=== PATIENT | male | born 1970 | race Caucasian/White ===

== ENCOUNTER 2017-10-15 18:14 | Emergency (ER) | payer MEDICARE, SELFPAY ==
[2017-10-15 18:15] VITALS: BP 108/83; PULSE 186; RESP 20; TEMP 36.9; O2SAT 99; BMI 34.4
--- NOTE | 2017-10-15 18:22 | EKG12_ITS ---
Test Reason : CP Blood Pressure : / mmHG Vent. Rate : 103 BPM Atrial Rate : 103 BPM P-R Int : 164 ms QRS Dur : 096 ms QT Int : 358 ms P-R-T Axes : 069 047 043 degrees QTc Int : 468 ms Sinus tachycardia Otherwise normal ECG Confirmed by NIKHIL HANKINS, KATEILN ([id number]), editor producer JOSEY NGUYEN ([id number]) on 10/19/2017 1:52:03 PM Referred By: AXEL Confirmed By:KATELIN TEJEDA MD
--- NOTE | 2017-10-15 18:23 | CT_ITS ---
STUDY: CT BRAIN WITHOUT CONTRAST REASON FOR EXAM: Male, 47 years old. Pain. RADIATION DOSAGE (If Supplied By Facility): CTDIvol = ( 44.99 ) mGy, DLP = ( 779.24 ) mGycm TECHNIQUE: Transaxial CT imaging of the brain was performed without administration of intravenous contrast material. Individualized dose optimization techniques were used for this CT. COMPARISON: MRI dated 01/04/2014 FINDINGS: There is no acute bleed or infarct. There are normal white matter tracts. The ventricles are normal in configuration. There is no hydrocephalus. There is mucosal hypertrophy in the left maxillary sinus. The visualized paranasal sinuses are otherwise clear. The mastoid air cells are well aerated. There is no skull fracture. CT/Brain/Head without Contrast IMPRESSION: No acute intracranial abnormality. Left maxillary sinusitis. Electronically Signed: Anthony Palomo, at 19:19 EDT Tel , Service support ,
[2017-10-15] MEDS: Adenosine 6 MG/2 ML Syringe 12 MG IV (18:26)
[2017-10-15] MEDS: 0.9% Normal Saline 1,000 ML 1000 ML IV (18:26)
[2017-10-15] MEDS: Aspirin 81 MG TAB.CHEW 324 MG PO (18:28)
--- NOTE | 2017-10-15 18:29 | RAD_ITS ---
STUDY: X-RAY CHEST REASON FOR EXAM: Male, 47 years old. Chest pain TECHNIQUE: Frontal view of the chest COMPARISON: 06/27/2014 FINDINGS: The lungs are clear. There are no pleural effusions. There is no pneumothorax. The heart is normal in size. The visualized osseous structures are within normal limits. RAD/Chest 1 View (Portable) IMPRESSION: No acute thoracic pathology. Electronically Signed: Anthony Palomo, at 19:10 EDT Tel , Service support ,
--- NOTE | 2017-10-15 18:29 | EKG12_ITS ---
Test Reason : SVT Blood Pressure : / mmHG Vent. Rate : 185 BPM Atrial Rate : 227 BPM P-R Int : 000 ms QRS Dur : 088 ms QT Int : 254 ms P-R-T Axes : 000 046 003 degrees QTc Int : 445 ms Supraventricular tachycardia Nonspecific ST abnormality Abnormal ECG Confirmed by NIKHIL HANKINS, KATELIN ([id number]), food editor JOSEY NGUYEN ([id number]) on 10/19/2017 1:53:20 PM Referred By: LAURA/AXEL Confirmed By:KATELIN TEJEDA MD
[2017-10-15 18:30] VITALS: O2SAT 99
--- NOTE | 2017-10-15 18:31 | ED.VISSUMM ---
- ER Visit Summary Date of Service: 10/15/17 Chief Complaint: Chest pain, palpitations History of Present Illness: The patient is a 47 M presenting with chest pain, palpitations. Patient states he was watching TV all day. He states he passed out while watching TV. He does not recall what happened but states he woke up and did not know where he was. He states he saw a little boy on his bed. Denies other hallucinations. He did not fall or have any injury. When he awoke he had chest pain and palpitations. He denies shortness of breath. Denies nausea or vomiting. Denies fever. Denies other complaints. Physical Examination: Heart rate 186, blood pressure 108/83, respiration 20, pulse ox 99% room air. This patient is afebrile. Alert no acute distress. HEENT exam is unremarkable. Neck is supple. Lungs are clear and equal bilaterally. Heart is regular and tachycardic Abdomen is soft nontender nondistended. Extremities are unremarkable. Skin is warm and dry. No focal neurologic deficit. Remainder of exam is unremarkable. Emergency Department Course and Treatment: EKG is SVT rate of 185. He was given adenosine 12 mg on arrival. He converted to sinus rhythm rate of 106. He was given aspirin. Chest x-ray shows no acute process. CBC shows a white count of 4.0, platelets 52. Chemistries unremarkable other than sodium 133, CO2 20, glucose 116. Troponin is negative. Tox positive for THC. Alcohol negative. TSH is 0.87. CT head shows no acute process. Patient is resting comfortably and feels improved in the emergency department. Recommend admission for further chest pain evaluation. Family also states patient has not had alcohol in the past 5 days. He has a history of alcohol withdrawal and DTs. Patient does not want to stay in the hospital. He is advised risks of DE, alcohol withdrawal, and . He understands these risks and signed out AGAINST MEDICAL ADVICE. He is advised to follow-up with Dr. Abbott personal care worker for no doc. Advised to return to the ED for any worsening complaints. Disposition: Left AGAINST MEDICAL ADVICE Impression: Chest pain, SVT, left AGAINST MEDICAL ADVICE This note was generated with [employer] dictation software. It may contain incorrect words, spelling, and punctuation that were not noted in review of the chart prior to signing ED Disposition - Plan for ED Patient: Chief Complaint: Chest Pain Referrals: Marisela West PA-C [Primary Care Provider] -
[2017-10-15 18:33] LABS: Absolute Lymphocyte Count 0.82 X10^3/ul (0.83-4.51); Absolute Neutrophil Count 2.9 X10^3/uL (2.0-7.7); Basophil# 0.01 X10^3/uL; Basophil% 0.2 % (0-1); Eosinophil# 0.05 X10^3/uL; Eosinophils% 1.2 % (0-5); Hematocrit 39.8 % (40-54); Hemoglobin 13.7 g/dl (13.0-16.5); Lymphocyte # 0.82 X10^3/ul (4.0); Lymphocyte % 20.3 % (19-41); Mean Corp Hgb Conc 34.4 g/gl (32-36); Mean Corpuscular Hgb 30.4 pg (27.0-32.0); Mean Corpuscular Volume 88.2 fL (80-94); Mean Platelet Vol. 11.4 fl (6.2-12.0); Monocyte# 0.23 X10^3/uL; Monocyte% 5.7 % (0-10); Neutrophil # 2.91 X10^3/uL (2.7-7.7); Neutrophil % 72.4 % (47-70); Platelet Count 52 K/mm3 (150-450); RBC Distribution Width CV 15.3 % (11.6-14.6); RBC Distribution Width SD 48.7 fl (35.1-43.9); Red Blood Count 4.51 M/mm3 (4.6-6.2)
[2017-10-15 18:34] LABS: POSITIVE COUNT NO; POSITIVE DIFFERENTIAL NO; POSITIVE MORPHOLOGY NO
--- NOTE | 2017-10-15 18:36 | ED.DCSUM_ITS ---
- ER Visit Summary Date of Service: 10/15/17 Chief Complaint: Chest pain, palpitations History of Present Illness: The patient is a 47 M presenting with chest pain, palpitations. Patient states he was watching TV all day. He states he passed out while watching TV. He does not recall what happened but states he woke up and did not know where he was. He states he saw a little boy on his bed. Denies other hallucinations. He did not fall or have any injury. When he awoke he had chest pain and palpitations. He denies shortness of breath. Denies nausea or vomiting. Denies fever. Denies other complaints. Physical Examination: Heart rate 186, blood pressure 108/83, respiration 20, pulse ox 99% room air. This patient is afebrile. Alert no acute distress. HEENT exam is unremarkable. Neck is supple. Lungs are clear and equal bilaterally. Heart is regular and tachycardic Abdomen is soft nontender nondistended. Extremities are unremarkable. Skin is warm and dry. No focal neurologic deficit. Remainder of exam is unremarkable. Emergency Department Course and Treatment: EKG is SVT rate of 185. He was given adenosine 12 mg on arrival. He converted to sinus rhythm rate of 106. He was given aspirin. Chest x-ray shows no acute process. CBC shows a white count of 4.0, platelets 52. Chemistries unremarkable other than sodium 133, CO2 20, glucose 116. Troponin is negative. Tox positive for THC. Alcohol negative. TSH is 0.87. CT head shows no acute process. Patient is resting comfortably and feels improved in the emergency department. Recommend admission for further chest pain evaluation. Family also states patient has not had alcohol in the past 5 days. He has a history of alcohol withdrawal and DTs. Patient does not want to stay in the hospital. He is advised risks of PA, alcohol withdrawal, and . He understands these risks and signed out AGAINST MEDICAL ADVICE. He is advised to follow-up with Dr. Abbott correspondence representative for no doc. Advised to return to the ED for any worsening complaints. Disposition: Left AGAINST MEDICAL ADVICE Impression: Chest pain, SVT, left AGAINST MEDICAL ADVICE This note was generated with [employer] dictation software. It may contain incorrect words, spelling, and punctuation that were not noted in review of the chart prior to signing ED Disposition - Plan for ED Patient: Chief Complaint: Chest Pain Referrals: Marisela West PA-C [Primary Care Provider] -
--- NOTE | 2017-10-15 18:37 | ED.RN ---
PT HAS NOT HAD ETOH FOR 5 DAYS AND REPORTED HAVING A BEER TODAY PER [facility], PT HAVING TREMORS AND VISUAL & AUDITORY HALLUCINATIONS AT THIS TIME.
--- NOTE | 2017-10-15 18:43 | ED.RN ---
PT REPORTED TAKING SOME PREDNISONE YESTERDAY I THINK 130MGS THEN PT STATED MAYBE 30MGS
[2017-10-15 19:11] LABS: Anion Gap 9 (5-15); BUN 7 mg/dL (7-18); BUN/Creat Ratio 9.7 RATIO (10-20); Calcium,Total 8.7 mg/dL (8.5-10.1); Chloride 104 mmol/L (98-107); Creatinine, Serum 0.72 mg/dL (0.70-1.30); EST Glomerular Filtration Rate 123 mL/min (>60); Est Glom Filt Rate - Afr Amer 148 mL/min (>60); Estimated Creatinine Clearance 128.14 ml/min; Glucose 116 mg/dL (74-106); Potassium 3.9 mmol/L (3.5-5.1); Sodium Level 133 mmol/L (136-145); Thyroid Stim Hormone (TSH) 0.87 uIU/mL (0.358-3.74)
[2017-10-15 19:22] VITALS: BP 120/74; PULSE 110; RESP 25; O2SAT 99
[2017-10-15 19:44] LABS: Amphetamine Urine VISTA NEGATIVE (<1000 ng/mL); Barbiturate Urine VISTA NEGATIVE (< 200 ng/mL); Benzodiazepine Urine VISTA NEGATIVE (< 200 ng/mL); Cocaine Urine VISTA NEGATIVE (< 300 ng/mL); Ecstacy Urine VISTA NEGATIVE (< 500 ng/mL); Methadone Urine VISTA NEGATIVE (< 300 ng/mL); PCP Urine VISTA NEGATIVE (< 25 ng/mL); THC Urine VISTA POSITIVE (< 50 ng/mL); Vista UDS pH Range 6
--- NOTE | 2017-10-15 20:08 | ED.DEP ---
ED Disposition - Plan for ED Patient: Chief Complaint: Chest Pain Instructions: ED Tachycardia Pat PSVT Referrals: Marisela West PA-C [Primary Care Provider] - Efraín Abbott MD [STAFF PHYSICIAN] -
[2017-10-15 20:12] VITALS: BP 116/74; PULSE 112; RESP 18; O2SAT 98
[2017-10-15 20:35] VITALS: BP 115/75; PULSE 104; RESP 20; O2SAT 98
--- NOTE | 2017-10-15 20:36 | ED.RN ---
PT IS LEAVING AMA. DISCHARGE INSTRUCTIONS GIVEN, AND AMA FORM SINGED BY THE PATIENT AND A COPY GIVEN.
== END 2017-10-15 20:38 | disposition home or self-care (01) ==
PROVIDERS: Emergency Provider Emergency Medicine; Family Provider Family Medicine; PCP Family Medicine
DX: I47.1 Supraventricular tachycardia (principal); R07.9 Chest pain, unspecified; J44.9 Chronic obstructive pulmonary disease, unspecified; M06.9 Rheumatoid arthritis, unspecified; Z72.0 Tobacco use; Z79.51 Long term (current) use of inhaled steroids
CPT/HCPCS: 36415; 70450; 71045; 80048; 80307; 80320; 84443; 84484; 85025; 93005; 96361; 96374; 99285; J7030; A4216; G0480; J0153

== ENCOUNTER → 2017-11-03 12:00 | Outpatient (CLI) | payer MEDICARE, SELFPAY ==
[2017-11-03 14:50] LABS: Anion Gap 4 (5-15); BUN 3 mg/dL (7-18); BUN/Creat Ratio 5.2 RATIO (10-20); Calcium,Total 8.6 mg/dL (8.5-10.1); Chloride 105 mmol/L (98-107); Cholesterol 125 mg/dL (200); Creatinine, Serum 0.58 mg/dL (0.70-1.30); EST Glomerular Filtration Rate 159 mL/min (>60); Est Glom Filt Rate - Afr Amer 193 mL/min (>60); Glucose 88 mg/dL (74-106); High Density Lipoprotein 30 mg/dL; Potassium 4.1 mmol/L (3.5-5.1); Sodium Level 134 mmol/L (136-145); Triglycerides 85 mg/dL; Very Low Density Lipoprotein 17 mg/dL (5-40)
== END ==
PROVIDERS: Visit Provider Family Medicine
DX: R07.9 Chest pain, unspecified (principal)
CPT/HCPCS: 36415; 80048; 80061

== ENCOUNTER 2019-12-24 23:21 | Inpatient (IN) | payer MEDICARE, SELFPAY ==
[2019-12-24 23:22] VITALS: BP 114/67; PULSE 180; RESP 28; TEMP 36.8; O2SAT 97; BMI 34.4
[2019-12-24 23:27] VITALS: BP 104/70; PULSE 103; RESP 29; TEMP 36.8; O2SAT 98
--- NOTE | 2019-12-24 23:32 | RAD_ITS ---
STUDY: X-RAY CHEST REASON FOR EXAM: Male, 49 years old. c/o sob and cellulitis to both legs TECHNIQUE: AP portable COMPARISON: 10/15/2017 FINDINGS: The lungs demonstrate vascular congestion with mild interstitial prominence.. There is no demonstrated pleural abnormality. There is mild cardiac enlargement. Normal mediastinum and santi. Normal visualized pulmonary arteries. Normal visualized aortic arch and descending thoracic aorta. Normal visualized thoracic spine. Normal visualized ribs, clavicles, and shoulders. There is no demonstrated abnormality of the visualized soft tissue structures of the upper abdomen. RAD/Chest 1 View (Portable) IMPRESSION: Stable cardiac enlargement with mild vascular congestion and interstitial prominence likely due to underlying edema with possible small pleural effusions. No focal lung consolidative changes. Electronically Signed: Norman Britton, at 0:43 EDT Tel , Service support ,
--- NOTE | 2019-12-24 23:32 | EKG12_ITS ---
Test Reason : DYSRHYTHMIA Blood Pressure : / mmHG Vent. Rate : 182 BPM Atrial Rate : 187 BPM P-R Int : 000 ms QRS Dur : 092 ms QT Int : 250 ms P-R-T Axes : 000 015 064 degrees QTc Int : 435 ms Supraventricular tachycardia Nonspecific ST abnormality Abnormal ECG Confirmed by NIKHIL HANKINS, KATELIN ([id number]), script editor DIVYA LOMAX ([id number]) on 12/26/2019 1:15:41 PM Referred By: DANIELLE Confirmed By:KATELIN TEJEDA MD
--- NOTE | 2019-12-24 23:34 | ED.VIS.GEN ---
History of Present Illness Chief Complaint: Cellulitis Informant: Patient Onset: Weeks Context: Gradual Onset Timing: Continuous Current Severity: Moderate Maximum Severity: Severe Narrative: The patient is a 49-year-old male with medical history significant for alcohol abuse, prior SVT, diabetes who is not on medication presents to the emergency department with multiple complaints. Patient states that he does drink daily. He states over the past 2 weeks, he has had increasing edema in his lower extremities. He states is difficult for him to get around. He states that today, the areas on his posterior heels have both broken down and begun to drain. He denies any fevers or chills. He denies any chest pain. Patient states he does not follow with a primary care. He is on no medications for his multiple comorbidities. The patient was seen here about 2 years ago and was found to be in SVT. He was converted with adenosine, but signed out AGAINST MEDICAL ADVICE. He states he does continue to drink. He was worried that his legs were infected. He does ambulate with a cane given his significant lower extremity edema. He states his legs have been swollen for 15 years. Prior similar symptoms: Yes Recent Illness/Hospitalization: No Past Medical History - Allergies and Home Meds Allergies/Adverse Reactions: Allergies shellfish derived Allergy (Verified 12/24/19 23:27) Anaphylaxis venom-honey bee [bee venom (honey bee)] Allergy (Verified 12/24/19 23:27) Swelling codeine Adverse Reaction (Verified 12/24/19 23:27) Nausea Primary Care Physician: Care Physician,No Primary [Primary Care Provider] - Prior records reviewed: Yes Past Medical History: - - Diabetes, alcohol abuse and dependence, SVT Surgical History: noncontributory Smoking Status: Current every day smoker Review of Systems General: Denies: Chills, Fever, Sweats Eyes: Denies: Visual changes - bilaterally, Diplopia ENT: Denies: Rhinorrhea, Sore throat Cardiovascular: Reports: Heart racing. Denies: Chest pain, Palpitations Respiratory: Reports: Dyspnea, Dyspnea on exertion, Orthopnea. Denies: Cough Gastrointestinal: Denies: Abdominal pain, Nausea, Vomiting, Diarrhea, Melena, Hematochezia Genitourinary: Denies: Dysuria, Hematuria, Frequency Musculoskeletal: Reports: Myalgias, Swelling. Denies: Back pain, Extremity Pain Skin: Denies: Rash, Wounds Neurological: Denies: Headache, Weakness, Numbness Physical Exam Vital Signs/Narrative: Vital Signs Temp Pulse Resp BP Pulse Ox 12/24/19 23:22 98.2 F 180 H 28 H 114/67 97 Inital Vital Signs reviewed: Yes General: Unkempt, No Acute Distress Head: Normocephalic, Atraumatic Eyes: Perrl, EOMI ENT: Moist mucous membranes, No rhinorrhea, TM's clear Neck: Supple, Nontender Cardiovascular: Regular rhythm, Tachycardia Respiratory: No distress, Rales, Decreased Air Movement Abdomen: Soft, Nontender Back: Nontender Extremities: Edema Skin: Normal color Neurological: Alert, Oriented x3, Cranial nerves II-XII grossly intact Diagnostic/Tx/Re-eval - Rhythm Strip Rhythm Strip: svt Rate: 180 Ectopy: None - EKG Initial EKG Interpretation: SVT, Non-Specific ST Changes Prior: Unchanged Follow-up EKG Interpretation: Sinus Rhythm, No Acute Injury Pattern Prior: Unchanged - Medical Decision Making The patient presents with multiple complaints. He has 4+ edema of his lower extremities. He has anasarca. He has abdominal fluid wave. He was tachycardic on arrival, but not hypoxic. EKG was obtained which showed SVT which the patient has a history of. The patient underwent chemical cardioversion with 12 mg of adenosine. Repeat EKG shows sinus tachycardia at a rate of 100. There is no acute ischemic change. Chest x-ray does show congestion with evidence of volume overload. Patient is pancytopenic, which I feel is likely a result of his chronic alcohol abuse and rather poor underlying health. He has not had fever. The wounds on his legs do seem consistent with chronic venous stasis and skin breakdown. There is no evidence of overwhelming infection. Patient does have a lactic acid of 4.3. I do not feel this represents septic shock. The patient has had no fever. I do feel that this is likely secondary to his liver disease. He is already significantly volume overloaded, and I do feel that giving him high-volume fluids would be detrimental to his care. I do feel the patient needs diuresed. His renal function is unremarkable. His liver functions do show an elevated bilirubin without evidence of acute liver failure. Cardiac enzymes are normal. Patient has normal mentation. Again, my suspicion for infectious process is very low. I do feel that his symptoms are secondary to significant volume overload from CHF and likely underlying liver disease. I do feel the patient is in require continued diuresis, and echo, and further evaluation of his liver function. Patient was given 40 mg of Lasix IV. He was discussed with the hospitalist. Impression 1. Anasarca 2. Decompensated CHF 3. History of alcohol abuse and dependence 4. Alcoholic liver disease 5. SVT with chemical cardioversion 6. Lactic acidosis ED Disposition - Plan for ED Patient: Referrals: Care Physician,No Primary [Primary Care Provider] -
[2019-12-24] MEDS: Adenosine 6 MG/2 ML Syringe 12 MG IV (23:52)
[2019-12-24 23:53] LABS: Absolute Lymphocyte Count 0.36 X10^3/uL (0.83-4.51); Absolute Neutrophil Count 0.9 X10^3/uL (2.0-7.7); Eosinophil# 0.02 X10^3/uL; Eosinophils% 1.5 % (0-5); Hematocrit 34.3 % (40-54); Hemoglobin 10.7 g/dL (13.0-16.5); Lymphocyte # 0.36 X10^3/ul (4.0); Lymphocyte % 26.5 % (19-41); Mean Corp Hgb Conc 31.2 g/dL (32-36); Mean Corpuscular Hgb 26.5 pg (27.0-32.0); Mean Corpuscular Volume 84.9 fL (80-94); Mean Platelet Vol. 9.5 fl (6.2-12.0); Monocyte% 7.4 % (0-10); NRBC Flagged by Analyzer 0 % (0-5); Neutrophil # 0.87 X10^3/uL (2.7-7.7); Neutrophil % 63.9 % (47-70); POSITIVE COUNT YES; POSITIVE DIFFERENTIAL YES; POSITIVE MORPHOLOGY YES; Platelet Count 88 K/mm3 (150-450); RBC Distribution Width CV 22.9 % (11.6-14.6); Red Blood Count 4.04 M/mm3 (4.6-6.2)
--- NOTE | 2019-12-24 23:53 | EKG12_ITS ---
Test Reason : RHYTHM CONVERSION Blood Pressure : / mmHG Vent. Rate : 100 BPM Atrial Rate : 100 BPM P-R Int : 176 ms QRS Dur : 106 ms QT Int : 342 ms P-R-T Axes : 059 028 058 degrees QTc Int : 441 ms Sinus rhythm with Premature atrial complexes Possible Left atrial enlargement Borderline ECG Confirmed by NIKHIL HANKINS, KATELIN ([id number]), commercial production editor DIVYA LOMAX ([id number]) on 12/26/2019 1:15:58 PM Referred By: DANIELLE Confirmed By:KATELIN TEJEDA MD
[2019-12-24 23:56] LABS: Differential Indicated SCAN CRITERIA MET; White Blood Count 1.4 K/mm3 (4.4-11.0)
[2019-12-25] VITALS (16 sets, daily range): BP systolic 103–130; BP diastolic 49–72; PULSE 45–99; RESP 16–22; TEMP 36.6–37.1; O2SAT 92–99; BMI 35.2
[2019-12-25 00:03] LABS: International Normalized Ratio 1.5; Prothrombin Time (Protime)PT. 17.9 SECONDS (11.7-14.9)
[2019-12-25 00:14] LABS: Differential Comment SCANNED; Hypochromasia 1+; Platelet Estimate MOD DEC (ADEQ); Reactive Lymphocyte RARE
[2019-12-25 00:18] LABS: Lactic Acid 4.3 mmol/L (0.4-1.9)
[2019-12-25 00:19] LABS: BNP,B-Type NATRIURETIC PEPTIDE 877.3 pg/mL (0-100)
[2019-12-25 00:20] LABS: ALB/GLOB Ratio 0.3 RATIO (0.9-2.4); AST(SGOT) 74 U/L (15-37); Alanine Aminotransfer ALT/SGPT 36 U/L (16-61); Albumin, Serum 1.6 g/dL (3.2-5.0); Alkaline Phosphatase 195 U/L (45-117); Anion Gap 6 (5-15); BUN 5 mg/dL (7-18); BUN/Creat Ratio 7.3 RATIO (10-20); Calcium,Total 7.1 mg/dL (8.5-10.1); Chloride 105 mmol/L (98-107); Creatinine, Serum 0.68 mg/dL (0.70-1.30); EST Glomerular Filtration Rate 129 mL/min (>60); Est Glom Filt Rate - Afr Amer 157 mL/min (>60); Globulin 5.2 g/dL (2.2-4.2); Glucose 198 mg/dL (74-106); Potassium 4.3 mmol/L (3.5-5.1); Protein, Total 6.8 g/dL (6.4-8.2); Sodium Level 132 mmol/L (136-145); Thyroid Stim Hormone (TSH) 4.06 uIU/mL (0.358-3.74)
[2019-12-25] MEDS: Furosemide 40 MG/4 ML Vial IV ×4 (00:31→22:28)
--- NOTE | 2019-12-25 00:45 | PCM.HP.STD ---
Problem List (1) CHF (congestive heart failure) Status: Acute (2) Alcohol abuse Status: Chronic (3) Lymphedema Status: Chronic (4) Diabetes Status: Chronic History of Present Illness Date of Admission: 12/25/19 Chief Complaint: shortness of breath The patient is a 49 year old male patient with a significant past medical history of chronic alcohol abuse, diabetes who does not take any medication or see a doctor presents to the emergency room with shortness of breath and increased swelling of his legs. Patient denies chest pain or nausea and/or vomiting and diarrhea. He states he last drank 7 beers yesterday but routinely drinks 15-20 beers daily and has previously experienced delirium tremens. Laboratory studies reveal a white blood cell count of 1.4, hemoglobin 10.7, hematocrit 34, platelets 88, sodium 132, potassium 4.3, chloride 105, bicarb 21, BUN 5, creatinine 0.68, glucose 198, calcium 7.1, total bilirubin 3.6, AST 74, ALT 36, lactate 4.3, INR 1.5, BNP 877, troponin negative, albumin 1.6, TSH 4.06, chest x-ray shows pulmonary edema pattern. The patient will be admitted to the progressive care unit and will manage his congestive heart failure with diuretics and observe for symptoms of alcohol withdrawal. Patient was agreeable to plan of care and states he will be compliant and stay in the hospital this time despite having left AGAINST MEDICAL ADVICE previously. Past Medical History Past Medical History (Chronic Problems): Chronic Problems Alcohol abuse (Chronic) Lymphedema (Chronic) Diabetes (Chronic) Allergies shellfish derived Allergy (Verified 12/24/19 23:27) Anaphylaxis venom-honey bee [bee venom (honey bee)] Allergy (Verified 12/24/19 23:27) Swelling codeine Adverse Reaction (Verified 12/24/19 23:27) Nausea Home Medications: Ambulatory Orders Medication Instructions Recorded Albuterol Inhaler [Ventolin Hfa] 1 - 2 puff INHALATION Q4H PRN PRN 04/23/14 Fluticasone/Salmeterol [Advair 1 puff INHALATION BID 04/23/14 250/50 Mcg Diskus] Surgical History: noncontributory Smoking Status: Current every day smoker - *Family History Maternal History Items: No pertinent history Review of Systems Constitutional: Denies: Chills, Fever, Weight Change HEENT: Denies: Head Aches, Sinus Congestion, Sinus Drainage Cardiovascular: Reports: Edema. Denies: Chest Pain, Palpitations Respiratory: Reports: Shortness of breath at rest. Denies: Cough, Sputum production Gastrointestinal: Denies: Abdominal Pain, Nausea, Vomiting Genitourinary: Denies: Dysuria Musculoskeletal: Denies: Joint Pain, Joint Tenderness Skin: Denies: Rash, Wounds Neurological: Denies: Numbness, Tingling, Focal weakness Psychiatric: Reports: Anxiety. Denies: Depression, Homicidal Ideations, Suicidal Ideations Hematologic/ Lymphatic: Denies: Easy Bruising, Easy Bleeding VTE Information - Inpt Only VTE Present on Admission: No VTE Mechan Device Prophylaxis: None VTE Pharm Prophylaxis ordered?: Yes Patient Problems: Active and Suspected Problems CHF (congestive heart failure) (Acute) - Physical Exam Vitals/I&O's: Vital Signs Temp Pulse Resp BP Pulse Ox 98.4 F 98 22 H 103/71 99 12/25/19 00:38 12/25/19 00:38 12/25/19 00:38 12/25/19 00:38 12/25/19 00:38 Oxygen Delivery Method Room Air Weight: 240 lb Body Mass Index (BMI) 34.4 General: Alert, Oriented x3, Cooperative HEENT: Atraumatic, Normocephalic Neck: Supple Lungs: No rhonchi, No wheeze, Diminished, Rales Cardiovascular: Normal S1, Normal S2, No murmurs, Tachycardic Abdomen: Bowel Sounds Present, Soft, Non Tender, Obese Extremities: Clubbing, Diminished Peripheral Pulses, Edema, Tenderness Skin: No rashes, No breakdown Musculoskeletal: No Tenderness to Palpation of Joints or Extremities Neurological: Neuro grossly intact Psych/Mental Status: Normal Affect, Appropriate Laboratory Results 12/24/19 23:43: Ethyl Alcohol 4.0 12/24/19 23:45: WBC 1.4 L*, RBC 4.04 L, Hgb 10.7 L, Hct 34.3 L, MCV 84.9, MCH 26.5 L, MCHC 31.2 L, RDW Std Deviation 68.0 H, RDW Coeff of Chacha 22.9 H, Plt Count 88 L, MPV 9.5, Immature Gran % (Auto) 0.700, Neut % (Auto) 63.9, Lymph % (Auto) 26.5, Mcdowell % (Auto) 7.4, Eos % (Auto) 1.5, Baso % (Auto) 0.0, Absolute Neuts (auto) 0.9 L, Absolute Lymphs (auto) 0.36 L, Nucleated RBC % 0, Differential Comment SCANNED, Diff Path Review May foll, Reactive Lymphocytes RARE, Platelet Estimate MOD DEC, Hypochromasia 1+ 12/24/19 23:45: PT 17.9 H, INR 1.5 12/24/19 23:45: Sodium 132 L, Potassium 4.3, Chloride 105, Carbon Dioxide 21.0, Anion Gap 6, BUN 5 L, Creatinine 0.68 L, Estim Creat Clear Calc 132.70, Est GFR (MDRD) Af Amer 157, Est GFR (MDRD) Non-Af 129, BUN/Creatinine Ratio 7.3 L, Glucose 198 H, Calcium 7.1 L, Magnesium 2.0, Total Bilirubin 3.60 H, AST 74 H, ALT 36, Alkaline Phosphatase 195 H, Troponin I < 0.015, Total Protein 6.8, Albumin 1.6 L, Globulin 5.2 H, Albumin/Globulin Ratio 0.3 L, TSH 4.06 H 12/24/19 23:45: Lactic Acid 4.3 H* 12/24/19 23:45: B-Natriuretic Peptide 877.3 H Assessment/Plan All Active Problems CHF (congestive heart failure) (Acute) Chronic Problems Alcohol abuse (Chronic) Lymphedema (Chronic) Diabetes (Chronic) Plan 1. Acute congestive heart failure?admit patient to progressive care unit, order echocardiogram, diurese aggressively with Lasix, oxygen per protocol 2. Diabetes?initiate low-dose sliding scale insulin before meals and at bedtime 3. Alcohol abuse?will add alcohol withdrawal protocol 4. DVT prophylaxis?low molecular weight heparin Patient will need aggressive outpatient management with a primary care physician to successfully improve long-term. Would need medication such as metformin, ESTRELLA inhibitor, statin medication and aggressive alcohol cessation management/counseling. Sadly the patient does not appear to be motivated for a great deal of change at this time. Inpatient E&M: 36633 Init Hosp L3
[2019-12-25 01:03] LABS: Bacteria 0 SEEN /hpf (None Seen); Mucous, Urine 0 SEEN /hpf (<or=2+); Red Blood Cells-Urine 0 SEEN /hpf (0-5); Squamous Epithelial Cells - UA 0 SEEN /hpf (0-5); White Blood Cells 0 SEEN /hpf (0-5)
[2019-12-25 01:04] LABS: Color, Urine Amber (Yellow); Glucose, Dipstick Normal (Normal); Ketone-Dipstick Negative (Negative); Leukocyte Esterase-Dipstick Negative /ul (Negative); Nitrite-Dipstick Negative (Negative); Occult Blood-Urine Negative /ul (Negative); Protein-Dipstick Negative (Negative); Urine Bilirubin Dipstick Negative (Negative); Urine Clarity Sl. Cloudy (Clear); Urine Urobilinogen 1 mg/dl (Normal)
[2019-12-25 01:56] LABS: Bedside Glucose 106 mg/dL (70-110)
[2019-12-25] MEDS: LORazepam 1 MG Tablet 2 MG PO ×2 (02:35→09:49)
[2019-12-25] MEDS: 0.9% Saline Lock 10 ML Syringe IV ×4 (02:35→22:28)
[2019-12-25 03:49] LABS: Reflex Lactate? Y
[2019-12-25 04:47] LABS: Lactic Acid 1.8 mmol/L (0.4-1.9)
[2019-12-25 04:50] LABS: Absolute Lymphocyte Count 0.43 X10^3/uL (0.83-4.51); Absolute Neutrophil Count 0.7 X10^3/uL (2.0-7.7); Eosinophil# 0.03 X10^3/uL; Eosinophils% 2.2 % (0-5); Hematocrit 28.4 % (40-54); Hemoglobin 9.1 g/dL (13.0-16.5); Lymphocyte # 0.43 X10^3/ul (4.0); Lymphocyte % 31.9 % (19-41); Mean Corpuscular Hgb 26.9 pg (27.0-32.0); Mean Platelet Vol. 9.6 fl (6.2-12.0); Monocyte# 0.14 X10^3/uL; Monocyte% 10.4 % (0-10); NRBC Flagged by Analyzer 0 % (0-5); Neutrophil # 0.74 X10^3/uL (2.7-7.7); Neutrophil % 54.8 % (47-70); POSITIVE COUNT YES; POSITIVE DIFFERENTIAL YES; POSITIVE MORPHOLOGY YES; Platelet Count 81 K/mm3 (150-450); RBC Distribution Width CV 22.6 % (11.6-14.6); RBC Distribution Width SD 67.5 fl (35.1-43.9); Red Blood Count 3.38 M/mm3 (4.6-6.2)
[2019-12-25 04:52] LABS: Differential Indicated SCAN CRITERIA MET; White Blood Count 1.4 K/mm3 (4.4-11.0)
[2019-12-25 05:04] LABS: Anion Gap 4 (5-15); BUN 6 mg/dL (7-18); BUN/Creat Ratio 12.3 RATIO (10-20); Calcium,Total 7.1 mg/dL (8.5-10.1); Chloride 104 mmol/L (98-107); Creatinine, Serum 0.49 mg/dL (0.70-1.30); EST Glomerular Filtration Rate 191 mL/min (>60); Est Glom Filt Rate - Afr Amer 231 mL/min (>60); Estimated Creatinine Clearance 184.16 ml/min; Glucose 123 mg/dL (74-106); Potassium 3.6 mmol/L (3.5-5.1); Sodium Level 133 mmol/L (136-145)
[2019-12-25 05:05] LABS: BNP,B-Type NATRIURETIC PEPTIDE 978.2 pg/mL (0-100)
[2019-12-25 05:19] LABS: Differential Comment SCANNED; Hypochromasia RARE; Platelet Estimate MOD DEC (ADEQ); Reactive Lymphocyte RARE
--- NOTE | 2019-12-25 05:55 | ECHOD_ITS ---
Reason For Study: CHF Procedure This was a 2D Doppler, Color Flow transthoracic echocardiogram. The study was technically difficult. Exam performed portable in patient room. Left Ventricle Normal LV size. Left ventricular systolic function is normal. The estimated ejection fraction is 60 %. No evidence for diastolic dysfunction. No regional wall motion abnormalities noted. Right Ventricle Normal RV size. Normal systolic function. Atria The left atrium is mildly enlarged. Normal right atrium. No doppler evidence for ASD. Mitral Valve There is no mitral annular calcification. Mild diffuse mitral valve thickening. Mild (1+) mitral valve insufficiency. Tricuspid Valve Normal tricuspid valve. Trivial tricuspid valve insufficiency. Right ventricular systolic pressure estimated to be 29 mmHg. Aortic Valve Trisinus/trileaflet aortic valve. Normal aortic valve. Trivial aortic valve insufficiency. Pulmonic Valve The pulmonic valve is not well visualized. Great Vessels Normal sized aortic root. Pericardium/Pleural No pericardial effusion. MMode/2D Measurements & Calculations LVIDd: 5.1 cm IVSd: 0.82 cm Ao root diam: 3.6 cm LVIDs: 3.8 cm LVPWd: 0.84 cm RVDd: 4.7 cm FS: 26.0 % LAV(MOD-bp): 102.9 ml LVAd ap4: 44.3 cm2 SV(MOD-sp4): 111.3 ml LAV(MOD-bp) Indexed: 45.2 ml/m2 EDV(MOD-sp4): 176.1 ml LAV(MOD-sp2): 97.8 ml EDV(sp4-el): 181.5 ml LAV(MOD-sp4): 99.8 ml LVAs ap4: 23.5 cm2 ESV(MOD-sp4): 64.9 ml ESV(sp4-el): 62.8 ml EF(MOD-sp4): 63.2 % EF(sp4-el): 65.4 % SV(sp4-el): 118.7 ml LA A4 area: 30.1 cm2 LA dimension(2D): 4.5 cm RA A4 area: 24.1 cm2 Time Measurements MV dec time: 0.34 sec Doppler Measurements & Calculations MV E max bairon: 131.1 cm/sec Lat Peak E' Bairon: 14.2 cm/sec Med Peak E' Bairon: 10.7 cm/sec MV A max bairon: 99.0 cm/sec E/E' lat: 9.2 E/E' med: 12.3 MV E/A: 1.3 Ao V2 max: 193.1 cm/sec LV V1 max: 164.5 cm/sec PA V2 max: 171.7 cm/sec Ao max P.9 mmHg LV V1 max P.8 mmHg TR max bairon: 256.5 cm/sec TR max P.3 mmHg Interpretation Summary The study was technically difficult. Left ventricular systolic function is normal. The estimated ejection fraction is 60 %. The left atrium is mildly enlarged. Mild diffuse mitral valve thickening. Mild (1+) mitral valve insufficiency. Trivial tricuspid valve insufficiency. Trivial aortic valve insufficiency. Right ventricular systolic pressure estimated to be 29 mmHg. No evidence for diastolic dysfunction. Ordering Physician: Efraín Abbott Referring Physician: EFRAÍN ABBOTT Performed By: Lyla Briones RDCS
[2019-12-25 06:55] LABS: Bedside Glucose 106 mg/dL (70-110)
[2019-12-25] MEDS: Folic Acid 1 MG Tablet PO (09:47)
[2019-12-25] MEDS: Enoxaparin 40 MG/0.4 ML Syringe SC (09:47)
[2019-12-25] MEDS: Thiamine Hydrochloride 100 MG Tablet PO (09:47)
--- NOTE | 2019-12-25 10:25 | NURSING ---
No open areas noted to bilateral lower legs. chronic lymphedema noted with hemosiderin staining. pt states he has not been able to shower for quite some time. pt had been bathed numerous times since admission and there is still an odor noted. has some black stained areas to feet. washed legs and feet again with soap and water. pat dry. applied kerlix and ESTRELLA wraps from the base of the toes to just below the knees. see skin photos of legs.
--- NOTE | 2019-12-25 11:25 | NURSING ---
Handoff completed with Daniela Farnsworth RN. Pt resting in bed, eyes closed. Appears to be in no distress. This RN will be taking over pt care at this time.
--- NOTE | 2019-12-25 11:26 | NURSING ---
skin photo: right lower leg
--- NOTE | 2019-12-25 11:27 | NURSING ---
skin photo: left lower leg
--- NOTE | 2019-12-25 11:28 | CASEMGMT ---
ARSENIO GONSALVES assessment: Face to Face with patient for initial transition planning/care coordination assessment. ARSENIO GONSALVES introduced self and role at [facility], pt voices understanding and consents to assessment at this time. Pt is sitting up in bed in no distress at this time but pt falls asleep when not verbally stimulated. Pt is A/Ox4 at this time and answers questions appropriately at this time. Pt looks jaundiced at this time. Care providers, pharmacy, and demographics verified at this time. Presentation: Pt concerned for infection in both feet Admitting dx: CHF exacerbation PCP: Pt states that he does not have a PCP but is willing to take a list of in-network providers at this time. Pt states that he has been doing his own wound care at home. Specialists: Pt states no current specialists. [facility] Benefit[facility] [employer] Living Will/HPOA: Pt states does not have LW/HPOA and declines AD info at this time. LNOK: Yara Cardenas, Living Arrangements: Pt states lives with on main level of home and states no concerns at home at this time. Pt states is independent with ADL's. Transportation: Pt states drives self and states no transportation concerns at this time. DME/HHC: Pt states has the following DME: walker and grab bars. Pt states no need for any further DME at this time. Pt states no hx of HHC or SNF in the past. Pt states no concerns with going home at time of discharge. Pt states is on disability. Pt states smokes 1-2packs/day and drinks about 15 beers daily. Pt declines need for any further resources for ETOH abuse at this time. Pt states no further concerns/needs at this time. CM to follow for any further discharge planning/needs. Advised pt to ask for CM if any further questions/concerns/needs arise, voices understanding. Pt Goal: Home Plan: [place] ARSENIO GONSALVES
--- NOTE | 2019-12-25 11:28 | NURSING ---
wound photo: right buttock
[2019-12-25 11:35] LABS: Bedside Glucose 101 mg/dL (70-110)
[2019-12-25 12:32] LABS: Pathologist Review Reviewed
[2019-12-25 12:32] LABS: Pathologist Review Reviewed
[2019-12-25 16:55] LABS: Bedside Glucose 92 mg/dL (70-110)
--- NOTE | 2019-12-25 17:05 | PCM.HOSP.N ---
Hospitalist Note He was seen and examined today, he appears somnolent and lethargic, I initially took him off of Ativan taper, I then put him on some programmed Ativan at the lower dose but he remained somnolent and lethargic so I made the decision to stop his programmed Ativan. Patient will be given Ativan as needed based on his CIWA scores. Patient's echocardiogram today showed a normal EF and no evidence of pulmonary hypertension. Patient's labs will be repeated tomorrow, I have decided to keep the patient on his present medication. Patient's ammonia level was checked this afternoon and it was 46-I do not think this is contributing to his lethargy.
[2019-12-25 22:09] LABS: Magnesium 1.9 mg/dL (1.6-2.6); Phosphorus 2.9 mg/dL (2.5-4.9)
[2019-12-25 23:25] LABS: Bedside Glucose 139 mg/dL (70-110)
[2019-12-26] VITALS (54 sets, daily range): BP systolic 80–138; BP diastolic 40–115; PULSE 56–175; RESP 18–34; TEMP 36.4–36.9; O2SAT 87–99
[2019-12-26] MEDS: 0.9% Saline Lock 10 ML Syringe IV ×14 (01:36→20:25)
[2019-12-26] MEDS: dilTIAZem 25 MG/5 ML Vial 20 MG IV BOLUS ×3 (01:37→20:26)
--- NOTE | 2019-12-26 01:42 | PCM.HOSP.N ---
Hospitalist Note Patient with onset asymptomatic tachycardia, rate 180s, ? appearance NSVT, administered cardizem 20 mg IV bolus x 1, repeat EKG with NSR rate 80s, occasional PVC. Last CIWA 3. Will continue to closely monitor and add additional regimen as needed.
--- NOTE | 2019-12-26 01:59 | EKG12_ITS ---
Test Reason : EKG CHANGE Blood Pressure : / mmHG Vent. Rate : 064 BPM Atrial Rate : 064 BPM P-R Int : 196 ms QRS Dur : 106 ms QT Int : 446 ms P-R-T Axes : 055 056 066 degrees QTc Int : 460 ms Sinus rhythm with Premature atrial complexes Otherwise normal ECG When compared with ECG of 26-DEC-2019 14:33, MANUAL COMPARISON REQUIRED, DATA IS UNCONFIRMED Confirmed by ISH HANKINS, CORY ([id number]), news copy editor DIVYA LOMAX ([id number]) on 12/28/2019 9:12:27 AM Referred By: VIRGILIO Confirmed By:THAI DENG MD
[2019-12-26] MEDS: dilTIAZem 25 MG/5 ML Vial 10 MG IV BOLUS ×2 (02:50→05:52)
[2019-12-26] MEDS: Adenosine 6 MG/2 ML Syringe IV ×2 (04:11→13:44)
[2019-12-26] MEDS: Adenosine 6 MG/2 ML Syringe 12 MG IV ×3 (04:24→16:31)
[2019-12-26] MEDS: Metoprolol Tartrate 5 MG/5 ML Vial 2.5 MG IV (04:32)
[2019-12-26] MEDS: Amiodarone 360 MG in Dextrose 5% Viaflo Bag 192.8 ML 33.3 MG CONT INF (05:25)
[2019-12-26 05:46] LABS: Absolute Neutrophil Count 0.7 X10^3/uL (2.0-7.7); Basophil# 0.01 X10^3/uL; Basophil% 0.7 % (0-1); Eosinophil# 0.04 X10^3/uL; Eosinophils% 2.6 % (0-5); Hemoglobin 9.6 g/dL (13.0-16.5); Lymphocyte % 39.7 % (19-41); Mean Corpuscular Volume 84.5 fL (80-94); Mean Platelet Vol. 10.2 fl (6.2-12.0); Monocyte% 13.2 % (0-10); NRBC Flagged by Analyzer 0 % (0-5); Neutrophil # 0.66 X10^3/uL (2.7-7.7); Neutrophil % 43.8 % (47-70); POSITIVE COUNT YES; POSITIVE DIFFERENTIAL YES; POSITIVE MORPHOLOGY YES; Platelet Count 85 K/mm3 (150-450); RBC Distribution Width CV 22.9 % (11.6-14.6); Red Blood Count 3.55 M/mm3 (4.6-6.2); White Blood Count 1.5 K/mm3 (4.4-11.0)
[2019-12-26 05:58] LABS: Differential Indicated SCAN CRITERIA MET
[2019-12-26 06:01] LABS: ALB/GLOB Ratio 0.3 RATIO (0.9-2.4); AST(SGOT) 52 U/L (15-37); Alanine Aminotransfer ALT/SGPT 28 U/L (16-61); Albumin, Serum 1.4 g/dL (3.2-5.0); Alkaline Phosphatase 146 U/L (45-117); Anion Gap 7 (5-15); BUN 9 mg/dL (7-18); BUN/Creat Ratio 17.3 RATIO (10-20); Calcium,Total 7.2 mg/dL (8.5-10.1); Chloride 101 mmol/L (98-107); Creatinine, Serum 0.52 mg/dL (0.70-1.30); EST Glomerular Filtration Rate 177 mL/min (>60); Est Glom Filt Rate - Afr Amer 214 mL/min (>60); Estimated Creatinine Clearance 173.53 ml/min; Globulin 4.7 g/dL (2.2-4.2); Glucose 151 mg/dL (74-106); Potassium 3.3 mmol/L (3.5-5.1); Protein, Total 6.1 g/dL (6.4-8.2); Sodium Level 134 mmol/L (136-145)
[2019-12-26 06:13] LABS: Differential Comment SCANNED; Hypochromasia 1+; Microcytosis RARE; Platelet Estimate MOD DEC (ADEQ)
[2019-12-26 07:05] LABS: Bedside Glucose 109 mg/dL (70-110)
[2019-12-26] MEDS: Thiamine Hydrochloride 100 MG Tablet PO (07:21)
[2019-12-26] MEDS: Folic Acid 1 MG Tablet PO (07:21)
--- NOTE | 2019-12-26 07:47 | CPS ---
pt placed on 2lpm for c/o S.O.B...nurse aware of change
--- NOTE | 2019-12-26 08:44 | CON.PCM_ITS ---
Problem List (1) SVT (supraventricular tachycardia) Status: Acute (2) Alcohol abuse Status: Chronic (3) Pancytopenia Status: Acute (4) Lymphedema Status: Chronic (5) COPD (chronic obstructive pulmonary disease) Status: Chronic (6) Arthritis Status: Chronic (7) Diabetes Status: Chronic Reason for Consult Date of Consultation: 12/26/19 History of Present Illness: The patient is a 49 year [id number]-oox white male with a past history of alcohol abuse, lymphedema, COPD, rheumatoid arthritis, and diabetes, who is referred for evaluation of SVT in the setting of pancytopenia. He states that in the past he presented to a hospital for concerns of an increased heart rate, was treated medically, was recommended for further inpatient evaluation and care, declined such evaluation care, signed out AMA, and has had no cardiovascular evaluation since that time. He presented to the hospital based upon concerns of chest discomfort and lower extremity edema. However, he states he does not recall having any chest discomfort. He states that he has felt short of breath and has noted his lower extremity edema with associated skin breakdown with associated sores , have worsened. He was evaluated and placed in the hospital with alcohol detoxification monitoring. During his hospital stay he has been found to have episodes of SVT responding to IV adenosine therapy. He is also been found to have an cytopenia and electrolyte abnormalities. He has been treated during his hospital stay from a cardiovascular standpoint based upon his recurrent SVT with an attempt of IV diltiazem and subsequently IV amiodarone. He is also been on IV diuretics for his lower extremity edema along with Brandyn wraps for his lower extremity edema. He has undergone further evaluation with cardiac enzyme levels which have been negative. He did have an ECG which demonstrated sinus rhythm with PACs with poor R wave progression as well as an ECG demonstrating findings compatible with SVT. He had a transthoracic echoc ardiogram performed which is noted below. At the present time he denies any chest discomfort. He states he has chronic shortness of breath and dyspnea related to his COPD. He denies any ongoing nausea, emesis, or diaphoresis. He states he has chronic lower extremity edema with sores that week. He notes that he follows with no physicians. He wants to move to [place] to improve his pulmonary process. [] Past Medical History Allergies/Adverse Reactions: Allergies shellfish derived Allergy (Verified 12/24/19 23:27) Anaphylaxis venom-honey bee [bee venom (honey bee)] Allergy (Verified 12/24/19 23:27) Swelling codeine Adverse Reaction (Verified 12/24/19 23:27) Nausea Home Medications: Ambulatory Orders Medication Instructions Recorded Albuterol Inhaler [Ventolin Hfa] 1 - 2 puff INHALATION Q4H PRN PRN 04/23/14 Fluticasone/Salmeterol [Advair 1 puff INHALATION BID 04/23/14 250/50 Mcg Diskus] Past Medical History (Chronic Problems): Chronic Problems Alcohol abuse (Chronic) Lymphedema (Chronic) Diabetes (Chronic) COPD (chronic obstructive pulmonary disease) (Chronic) Arthritis (Chronic) Surgical History: noncontributory - *Family History Maternal History Items: No pertinent history Lives: Alone Smoking Status: Current every day smoker Alcohol: Heavy Drugs: None Review of Systems - Review of Systems General: Denies: Fever, Night Sweats, Fatigue Cardiovascular: Reports: Shortness of Breath, Peripheral Edema, Palpitations. Denies: Chest Discomfort, Orthopnea, PND, Lightheadedness, Dizziness, Near Syncope, Syncope Respiratory: Reports: Shortness of Breath. Denies: Cough, Sputum Production, Hemoptysis Gastrointestinal: Denies: Hematemesis, Hematochezia, Melena Genitourinary: Denies: Dysuria, Hematuria Skin: Denies: Rash Subjectve: This is a 49-year-old white male who appears to be resting reasonably comfortably at the moment in no acute distress. Objective: Vital Signs Temp Pulse Resp BP Pulse Ox 97.9 F 83 25 H 106/56 L 94 12/26/19 02:31 12/26/19 07:00 12/26/19 07:00 12/26/19 07:00 12/26/19 07:00 Oxygen Flow Rate (L/min) 2 Oxygen Delivery Method Nasal Cannula Weight: 245 lb 2.464 oz Body Mass Index (BMI) 35.2 Intake and Output for Last 24 Hours 12/24/19 12/25/19 12/26/19 23:59 23:59 23:59 Intake Total 562 / 562 1215.13 / 1215.13 Output Total 4875 / 4875 925 / 925 Balance -4313 / -4313 290.13 / 290.13 General: Awake, Alert, Oriented x 3, Cooperative, No Acute Distress HEENT: Atraumatic, Normocephalic, PERRL, EOMI, Sclera Non Icteric Neck: Supple, Good ROM, No JVD Lungs: Diminished David Bases, - - Decreased inspiratory effort Cardiovascular: Regular Rhythm, Premature Ectopic Beats, Normal S1, Normal S2 Abdomen: Bowel Sounds Present, Soft, Non Tender Extremities: Severe RLE Edema, Severe LLE Edema, - - Bilateral lower extremity peripheral pitting edema: Chronic changes: Currently in Brandyn wraps Psych/Mental Status: Flat Affect 12/25/19 10:08: Troponin I < 0.015 12/25/19 13:05: Troponin I < 0.015 12/25/19 13:05: Phosphorus 2.9, Magnesium 1.9 12/26/19 05:35: WBC 1.5 L, RBC 3.55 L, Hgb 9.6 L, Hct 30.0 L, MCV 84.5, MCH 27.0, MCHC 32.0, Plt Count 85 L, MPV 10.2, Immature Gran % (Auto) 0.000, Neut % (Auto) 43.8 L, Lymph % (Auto) 39.7, Kinney % (Auto) 13.2 H, Eos % (Auto) 2.6, Baso % (Auto) 0.7, Absolute Neuts (auto) 0.7 L, Nucleated RBC % 0 12/26/19 05:35: Sodium 134 L, Potassium 3.3 L, Chloride 101, Carbon Dioxide 26.0, Anion Gap 7, BUN 9, Creatinine 0.52 L, Est GFR (MDRD) Af Amer 214, Est GFR (MDRD) Non-Af 177, BUN/Creatinine Ratio 17.3, Glucose 151 H, Calcium 7.2 L, Total Bilirubin 3.40 H Rhythm: Sinus rhythm with PACs EKG: As noted above ECHO: Interpretation Summary The study was technically difficult. Left ventricular systolic function is normal. The estimated ejection fraction is 60 %. The left atrium is mildly enlarged. Mild diffuse mitral valve thickening. Mild (1+) mitral valve insufficiency. Trivial tricuspid valve insufficiency. Trivial aortic valve insufficiency. Right ventricular systolic pressure estimated to be 29 mmHg. No evidence for diastolic dysfunction. Stress Test: 07-24-2014 Interpretation Summary Normal adequate dobutamine echocardiogram. Negative for ischemia by ECG and ECHO criteria. No anginal symptoms noted. No arrythymias noted. Appropriate BP repsonse to dobutamine. Final LVEF=70%. CXR: Preliminary evaluation: Possible increased interstitial markings/pleural effusion: Please see official report Assessment/Plan 1. 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 This may be exacerbated by the patient's underlying multiple medical issues. At the present time the patient is being monitored. He will continue medical therapy with an attempt at beta-gonsalo therapy. Hopefully he will not require long-term antiarrhythmic therapy. Ideally he would be referred to a tertiary care center for consideration for EPS/RFA, however, he states he does not have the finances for such an evaluation/therapy. 2. Alcohol abuse The patient is being evaluated by internal medicine for alcohol abuse and alcohol withdrawal. 3. Lymphedema The patient does have findings compatible with lymphedema. This may be secondary to the patient's longstanding history of alcohol abuse and findings of hypoproteinemia and hypoalbuminemia. He is continuing medical therapy with diuretic therapy and Brandyn wraps therapy. 4. Pancytopenia The patient does have pancytopenia. Again this may be secondary to the patient's alcohol abuse history. This can raise concerns with respect to additional evaluation/procedures/medications, etc. 5. COPD The patient states he has a history of COPD. He does not follow with any physicians. 6. Arthritis The patient states he has rheumatoid arthritis and walks with a cane. Again he states he does not follow with any physicians or take any medications. 7. Diabetes The patient is being evaluated by internal medicine for concerns of diabetes. Comment: The patient's case has been discussed and reviewed with Dr. Leyva and Dr. Zhang. This note was generated using a voice recognition system and there may be incorrect words, spelling or punctuation that were not noted when reviewing the office note prior to saving.
[2019-12-26] MEDS: Enoxaparin 40 MG/0.4 ML Syringe SC (10:07)
[2019-12-26] MEDS: Ondansetron 8 MG Tablet PO (10:12)
[2019-12-26] MEDS: Ibuprofen 600 MG Tablet PO (10:12)
[2019-12-26] MEDS: Furosemide 40 MG/4 ML Vial IV (11:01)
[2019-12-26] MEDS: Metoprolol Tartrate 5 MG/5 ML Vial IV (11:15)
[2019-12-26] MEDS: Metoprolol Tartrate 25 MG Tablet PO ×2 (11:15→21:32)
[2019-12-26] MEDS: Amiodarone 360 MG in Dextrose 5% Viaflo Bag 192.8 ML 16.7 MG CONT INF (11:20)
[2019-12-26 12:11] LABS: Bedside Glucose 126 mg/dL (70-110)
--- NOTE | 2019-12-26 13:50 | NURSING ---
This RN brought the pt one 12 ounce can of budweiser per pt's request.
[2019-12-26 14:06] LABS: Pathologist Review Reviewed
--- NOTE | 2019-12-26 14:22 | EKG12_ITS ---
Test Reason : RHYTHM Blood Pressure : / mmHG Vent. Rate : 144 BPM Atrial Rate : 144 BPM P-R Int : 192 ms QRS Dur : 096 ms QT Int : 264 ms P-R-T Axes : 000 032 062 degrees QTc Int : 408 ms Supraventricular tachycardia Nonspecific T wave abnormality Abnormal ECG When compared with ECG of 26-DEC-2019 06:52, MANUAL COMPARISON REQUIRED, DATA IS UNCONFIRMED Confirmed by ISH HANKINS, CORY ([id number]), food editor DIVYA LOMAX ([id number]) on 12/28/2019 9:12:51 AM Referred By: NIKHIL Confirmed By:THAI DENG MD
[2019-12-26] MEDS: Ondansetron 4 MG/2 ML Vial IV (14:32)
[2019-12-26] MEDS: Digoxin 250 MCG/ML Ampul 500 MCG IV (15:16)
[2019-12-26] MEDS: 0.9% Normal Saline 1,000 ML 999 ML IV (15:45)
--- NOTE | 2019-12-26 16:36 | EKG12_ITS ---
Test Reason : POST ADENOSINE Blood Pressure : / mmHG Vent. Rate : 085 BPM Atrial Rate : 110 BPM P-R Int : 000 ms QRS Dur : 108 ms QT Int : 392 ms P-R-T Axes : 093 046 072 degrees QTc Int : 466 ms Wandering atrial pacemaker Otherwise normal ECG When compared with ECG of 26-DEC-2019 01:34, MANUAL COMPARISON REQUIRED, DATA IS UNCONFIRMED Confirmed by ISH HANKINS, CORY ([id number]), offline editor DIVYA LOMAX ([id number]) on 12/28/2019 9:13:56 AM Referred By: VIRGILIO Confirmed By:THAI DENG MD
--- NOTE | 2019-12-26 17:19 | NURSING ---
This RN brought the pt one 12 ounce hernandez stone beer per pt's request.
--- NOTE | 2019-12-26 17:25 | PCM.PROGNOTE ---
Patient Problems: Active and Suspected Problems CHF (congestive heart failure) (Acute) SVT (supraventricular tachycardia) (Acute) Pancytopenia (Acute) Subjective: Patient was seen and examined today, I talked with cardiology many times today about his care, he has remained in SVT most of the day today, late this afternoon he was given additional doses of adenosine as well as IV digoxin and converted to a sinus rhythm in the 60s with PACs. Patient requested beer this afternoon, he told nursing this morning that he wanted to leave initially but then told cardiology that on 12/27/2019 he will check out of the hospital at 12 noon. Patient remains pancytopenic at this time, cardiology does not feel that he has CHF rather they feel that he has anasarca chiefly secondary to his suspected alcoholic liver disease and low albumin. I stopped the patient's Lasix dose today and due to hypotension, he had to have additional fluid boluses. - Physical Exam Vitals/I&O's: Vital Signs Temp Pulse Resp BP Pulse Ox 98.4 F 66 24 H 100/58 L 96 12/26/19 17:00 12/26/19 17:00 12/26/19 17:00 12/26/19 17:00 12/26/19 17:00 Oxygen Flow Rate (L/min) 2 Oxygen Delivery Method Nasal Cannula Weight: 111.2 kg Body Mass Index (BMI) 35.2 Intake and Output for Last 24 Hours 12/24/19 12/25/19 12/26/19 23:59 23:59 23:59 Intake Total 562 / 562 3814.62 / 3814.62 Output Total 4875 / 4875 925 / 925 Balance -4313 / -4313 2889.62 / 2889.62 General: Alert, Oriented x3, Cooperative, No apparent distress, Well developed HEENT: Atraumatic, PERRLA, EOMI, Normocephalic Oral: Moist Mucosa Neck: Supple, No JVD, Trachea Midline, Thyroid Normal Size and Texture Lungs: Clear to auscultation, Normal air movement, No rhonchi, No wheeze Cardiovascular: Regular rate, No murmurs Abdomen: Bowel Sounds Present, Soft, Non Tender, Non-Distended, No hernias noted Extremities: Capillary Refill Less than 3 Seconds, Edema - Generalized edema is noted over both lower extremities with changes indicative of lymphedema bilaterally Skin: No rashes, No breakdown Musculoskeletal: No Tenderness to Palpation of Joints or Extremities Neurological: Cranial nerves II-XII grossly intact, Neuro grossly intact, Sensory exam intact to light touch and pain Psych/Mental Status: Normal Affect, Appropriate, Alert and oriented to time, place, person, mood and affect Laboratory Results 12/25/19 13:05: Phosphorus 2.9, Magnesium 1.9 12/25/19 22:32: POC Glucose 139 H 12/26/19 05:35: WBC 1.5 L, RBC 3.55 L, Hgb 9.6 L, Hct 30.0 L, MCV 84.5, MCH 27.0, MCHC 32.0, RDW Std Deviation 69.0 H, RDW Coeff of Chacha 22.9 H, Plt Count 85 L, MPV 10.2, Immature Gran % (Auto) 0.000, Neut % (Auto) 43.8 L, Lymph % (Auto) 39.7, [place] % (Auto) 13.2 H, Eos % (Auto) 2.6, Baso % (Auto) 0.7, Absolute Neuts (auto) 0.7 L, Absolute Lymphs (auto) 0.60 L, Nucleated RBC % 0, Differential Comment SCANNED, Diff Path Review Reviewed, Platelet Estimate MOD DEC, Hypochromasia 1+, Microcytosis RARE 12/26/19 05:35: Sodium 134 L, Potassium 3.3 L, Chloride 101, Carbon Dioxide 26.0, Anion Gap 7, BUN 9, Creatinine 0.52 L, Estim Creat Clear Calc 173.53, Est GFR (MDRD) Af Amer 214, Est GFR (MDRD) Non-Af 177, BUN/Creatinine Ratio 17.3, Glucose 151 H, Calcium 7.2 L, Total Bilirubin 3.40 H, AST 52 H, ALT 28, Alkaline Phosphatase 146 H, Total Protein 6.1 L, Albumin 1.4 L, Globulin 4.7 H, Albumin/Globulin Ratio 0.3 L 12/26/19 05:35: Ammonia 57.0 H 12/26/19 07:00: POC Glucose 109 12/26/19 11:08: POC Glucose 126 H Current Medications Calamine/Phenol (Calmoseptine Ointment) 1 applic TOPICAL BID PADMA; Protocol Dextrose (D50w Syringe) 0 gm IV X1 PRN; Protocol PRN Reason: Hypoglycemia Enoxaparin Sodium (Lovenox) 40 mg SC DAILY [facility] Last Admin: 12/26/19 10:07 Dose: 40 mg Documented by: Folic Acid (Folic Acid) 1 mg PO DAILY@0800 [facility] Last Admin: 12/26/19 07:21 Dose: 1 mg Documented by: Glucagon () 1 mg IM .X1 PRN PRN Reason: Hypoglycemia Amiodarone HCl 360 mg/ (Dextrose) 200 mls @ 16.667 mls/hr CONT INF .Q12H [facility] Stop: 12/27/19 05:03 Last Infusion: 12/26/19 17:00 Dose: 0.5 mg/min, 16.7 mls/hr Documented by: Ibuprofen (Motrin) 600 mg PO Q6H PRN PRN PRN Reason: HEADACHE (1-10) Last Admin: 12/26/19 10:12 Dose: 600 mg Documented by: Loperamide HCl (Imodium) 2 mg PO Q4H PRN PRN PRN Reason: LOOSE STOOLS Metoprolol Tartrate (Lopressor (Beta Mor)) 25 mg PO BID [facility] Last Admin: 12/26/19 11:15 Dose: 25 mg Documented by: Nicotine (Nicoderm Cq (Pbkc)) 21 mg TRANSDERM. DAILY [facility] Last Admin: 12/26/19 10:07 Dose: 21 mg Documented by: Nutritional Formula (Eusebio - [place] Flavor) [facility] Last Admin: 12/26/19 15:42 Dose: 1 packet Documented by: Ondansetron HCl (Zofran) 8 mg PO Q8H PRN PRN PRN Reason: NAUSEA Last Admin: 12/26/19 10:12 Dose: 8 mg Documented by: Ondansetron HCl (Zofran) 4 mg IV Q4H PRN PRN Reason: NAUSEA Last Admin: 12/26/19 14:32 Dose: 4 mg Documented by: Sodium Chloride () 10 - 40 ml IV UD PRN PRN Reason: SALINE FLUSH Last Admin: 12/26/19 16:32 Dose: 10 ml Documented by: Thiamine HCl (Vitamin B1) [facility] Last Admin: 12/26/19 07:21 Dose: 100 mg Documented by: Medical Necessity - Tobacco Use Smoking Status: Current every day smoker Assessment/Plan All Active Problems CHF (congestive heart failure) (Acute) SVT (supraventricular tachycardia) (Acute) Pancytopenia (Acute) #1 generalized anasarca secondary to alcoholic liver disease-I do not feel the patient has congestive heart failure based on opinion from cardiology, IV Lasix was stopped at this time due to hypotension, patient's legs were wrapped with Brandyn wraps, prognosis is overall poor as the patient is indicated he is going back to drinking when he is discharged #2 persistent supraventricular tachycardia-cardiology is participating in his care and I am closely monitoring the patient along with cardiology. #3 pancytopenia secondary to alcoholic liver disease-no treatment at this time #4 alcoholic liver disease #5 chronic alcoholism #6 chronic obstructive pulmonary disease per history #7 chronic lymphedema of the legs #8 type 2 diabetes-monitor blood sugars, sliding scale insulin is being used Inpatient E&M: 28494 Subs Hosp L2
[2019-12-26] MEDS: Digoxin 250 MCG/ML Ampul IV (18:13)
--- NOTE | 2019-12-26 18:29 | EKG12_ITS ---
Test Reason : Blood Pressure : / mmHG Vent. Rate : 182 BPM Atrial Rate : 187 BPM P-R Int : 000 ms QRS Dur : 094 ms QT Int : 264 ms P-R-T Axes : 000 039 084 degrees QTc Int : 459 ms Supraventricular tachycardia Nonspecific ST and T wave abnormality Abnormal ECG When compared with ECG of 24-DEC-2019 23:56, MANUAL COMPARISON REQUIRED, DATA IS UNCONFIRMED Confirmed by ISH HANKINS, CORY ([id number]), graphics editor DIVYA LOMAX ([id number]) on 12/28/2019 9:14:36 AM Referred By: IFEOMA Confirmed By:THAI DENG MD
[2019-12-26 19:16] LABS: Bedside Glucose 121 mg/dL (70-110)
--- NOTE | 2019-12-26 19:32 | EKG12_ITS ---
Test Reason : DYSRHYTHMIA Blood Pressure : / mmHG Vent. Rate : 136 BPM Atrial Rate : 067 BPM P-R Int : 000 ms QRS Dur : 098 ms QT Int : 336 ms P-R-T Axes : 000 032 078 degrees QTc Int : 505 ms Supraventricular tachycardia Nonspecific T wave abnormality Abnormal ECG When compared with ECG of 26-DEC-2019 19:32, MANUAL COMPARISON REQUIRED, DATA IS UNCONFIRMED Confirmed by NORBERTO HANKINS, ROYAL ([id number]), loan examiner JOSEY NGUYEN ([id number]) on 01/01/2020 12:47:34 PM Referred By: LETA Confirmed By:ROYAL THORNTON MD
--- NOTE | 2019-12-26 19:43 | EKG12_ITS ---
Test Reason : DYSRHYTHMIA Blood Pressure : / mmHG Vent. Rate : 062 BPM Atrial Rate : 062 BPM P-R Int : 202 ms QRS Dur : 114 ms QT Int : 454 ms P-R-T Axes : 035 038 072 degrees QTc Int : 460 ms Normal sinus rhythm Nonspecific T wave abnormality Prolonged QT Abnormal ECG When compared with ECG of 26-DEC-2019 16:52, MANUAL COMPARISON REQUIRED, DATA IS UNCONFIRMED Confirmed by NORBERTO HANKINS, ROYAL ([id number]), advertising editor JOSEY NGUYEN ([id number]) on 01/01/2020 12:47:14 PM Referred By: LETA Confirmed By:ROYAL THORNTON MD
[2019-12-26] MEDS: Morphine 2 MG/ML Syringe IV (20:36)
--- NOTE | 2019-12-26 21:00 | RAD_ITS ---
STUDY: X-RAY - ABDOMEN/PELVIS REASON FOR EXAM: Male, 49 years old. Abdominal pain TECHNIQUE: Single AP view of the abdomen / pelvis. COMPARISON: None. FINDINGS: The exam is limited by patient size. Limited views of the lower chest show bilateral irregular densities. There is very little bowel gas with no dilated loops of bowel or evidence for obstruction. There is no demonstrated free abdominal air. The visualized liver, spleen and kidneys are grossly normal in size and morphology. Normal soft tissue structures. Normal visualized osseous structures. RAD/Abdomen Single View (Portable) IMPRESSION: Limited by patient''s size. No definite acute abnormality. Electronically Signed: Sherwin Salinas MD at 21:23 EDT , Service support ,
--- NOTE | 2019-12-26 21:27 | NURSING ---
Addendum entered by Leilani Garcia 12/27/19 04:33: Patient had two 12 ounce hernandez stone beers at his request, charted one by ariel- ARSENIO Light Original Note: This RN brought patient one 12 ounce hernandez stone beer per patient's request.
[2019-12-26] MEDS: Menthol/Lanolin/Calamine/Znox 113 GM Tube 1 APPLIC TOPICAL (21:35)
[2019-12-26 23:16] LABS: Bedside Glucose 112 mg/dL (70-110)
[2019-12-27] VITALS (24 sets, daily range): BP systolic 103–128; BP diastolic 49–63; PULSE 52–74; RESP 15–24; TEMP 36.4–37.2; O2SAT 92–98
[2019-12-27] MEDS: Amiodarone 360 MG in Dextrose 5% Viaflo Bag 192.8 ML 16.7 MG CONT INF (00:57)
--- NOTE | 2019-12-27 01:58 | NURSING ---
This RN brought patient two 12 ounce hernandez stone beers per patient's request
--- NOTE | 2019-12-27 04:44 | NURSING ---
Patient asking for more beer. Informed patient that we only have one more beer and it's not time for another one yet until about 0500. Patient threatening to leave AMA if he does not get more beer. States I'm leaving by noon today anyways so what's it matter if I leave now. Educated patient on medication he is receiving for his heart and the dangers of him leaving AMA. Patient aware and states My heart is fine, listen to it with your stethoscope. human service coordinator called nursing telemarketing supervisor to let her know patient wanting to leave AMA unless he gets more beer. Only have one left on unit until nursing telemarketing supervisor can get more beer. Patient agreed to stay but stated If there isn't more beer by the time I'm done with this one, I'm leaving. Patient is allowed eight beers per twelve hour shift, will have had five 12 ounce beers following the beer that this RN just gave. Nursing telemarketing supervisor to bring more beer per request.
[2019-12-27 05:37] LABS: Anion Gap 6 (5-15); BUN 15 mg/dL (7-18); BUN/Creat Ratio 24.2 RATIO (10-20); Calcium,Total 7.3 mg/dL (8.5-10.1); Chloride 100 mmol/L (98-107); Creatinine, Serum 0.62 mg/dL (0.70-1.30); EST Glomerular Filtration Rate 145 mL/min (>60); Est Glom Filt Rate - Afr Amer 176 mL/min (>60); Estimated Creatinine Clearance 145.54 ml/min; Glucose 101 mg/dL (74-106); Magnesium 1.8 mg/dL (1.6-2.6); Potassium 3.6 mmol/L (3.5-5.1); Sodium Level 131 mmol/L (136-145)
--- NOTE | 2019-12-27 06:18 | NURSING ---
Patient educated again on beer and how many he is allowed. (1-2 Q3 PRN) He received one 12 ounce hernandez stone beer around 0440, for a total of five 12 ounce hernandez stone beers. He was given one 12 ounce Natty Light beer at this time per request and told that he will not be able to receive another beer until 0900. Patient disagreed and stated his time starts over so he should be allowed another beer before 0900 Educated patient that he was given a beer at 0440 early because he was going to leave AMA and it was almost time that he could have a beer, so he has already had his two beers for his 3 hour window. Patient stating again to this RN I'm leaving by noon, probably early. field rep made aware
[2019-12-27 06:46] LABS: Bedside Glucose 117 mg/dL (70-110)
--- NOTE | 2019-12-27 08:13 | PCM.PN.CARD ---
Subjectve: The patient is awake and alert. He is up in the chair this morning eating breakfast. He states he feels better overall. He asked to be released home by noon today. Objective: Vital Signs Temp Pulse Resp BP Pulse Ox 97.7 F L 57 L 20 H 104/56 L 98 12/27/19 03:00 12/27/19 07:06 12/27/19 07:06 12/27/19 07:06 12/27/19 07:06 Oxygen Flow Rate (L/min) 2 Oxygen Delivery Method Nasal Cannula Weight: 245 lb 2.464 oz Body Mass Index (BMI) 35.2 Intake and Output for Last 24 Hours 12/25/19 12/26/19 12/27/19 23:59 23:59 23:59 Intake Total 562 / 562 4514.83 / 5381.49 2438.70 / 2438.70 Output Total 4875 / 4875 925 / 925 Balance -4313 / -4313 3589.83 / 4456.49 2438.70 / 2438.70 General: Awake, Alert, Oriented x 3, Cooperative, No Acute Distress HEENT: Atraumatic, Normocephalic, PERRL, EOMI Neck: Supple, Good ROM, No JVD Lungs: Clear to auscultation Cardiovascular: Regular Rhythm, Normal S1, Normal S2 Abdomen: Bowel Sounds Present, Soft Extremities: Severe RLE Edema, Severe LLE Edema Psych/Mental Status: Flat Affect 12/27/19 05:16: Sodium 131 L, Potassium 3.6, Chloride 100, Carbon Dioxide 25.0, Anion Gap 6, BUN 15, Creatinine 0.62 L, Est GFR (MDRD) Af Amer 176, Est GFR (MDRD) Non-Af 145, BUN/Creatinine Ratio 24.2 H, Glucose 101, Calcium 7.3 L, Magnesium 1.8 Rhythm: Sinus rhythm Medical Necessity - Tobacco Use Smoking Status: Current every day smoker Assessment/Plan 1. 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 This may be exacerbated by the patient's underlying multiple medical issues. At the present time the patient is being monitored. He has had recurrent events of the PSVT requiring IV adenosine. He has required multiple medications in an attempt to control his rate and rhythm including calcium channel antagonist, beta-blockers, digitalis, and IV amiodarone. At the moment, based on patient being placed back on IV Cardizem/diltiazem yesterday evening, while still on IV amiodarone which had been in place, he appears to have regained and maintain sinus rhythm. Thus it may not be unreasonable at this time, if the Cardizem/diltiazem appears to be assisting more with his rate and rhythm control as opposed to other agents, that he be transitioned to oral Cardizem/diltiazem. Ideally he would need continued rate control therapy and evaluation at a tertiary care center by electrophysiology for consideration for an EP study for possible radiofrequency ablation. However, as noted before, he states he cannot afford to proceed in that manner. 2. Alcohol abuse The patient is being evaluated by internal medicine for alcohol abuse and alcohol withdrawal. 3. Lymphedema The patient does have findings compatible with lymphedema. This may be secondary to the patient's longstanding history of alcohol abuse and findings of hypoproteinemia and hypoalbuminemia. He is continuing medical therapy with diuretic therapy and Brandyn wraps therapy. 4. Pancytopenia The patient does have pancytopenia. Again this may be secondary to the patient's alcohol abuse history. This can raise concerns with respect to additional evaluation/procedures/medications, etc. 5. COPD The patient states he has a history of COPD. He does not follow with any physicians. 6. Arthritis The patient states he has rheumatoid arthritis and walks with a cane. Again he states he does not follow with any physicians or take any medications. 7. Diabetes The patient is being evaluated by internal medicine for concerns of diabetes. This note was generated using a voice recognition system and there may be incorrect words, spelling or punctuation that were not noted when reviewing the office note prior to saving.
[2019-12-27] MEDS: Thiamine Hydrochloride 100 MG Tablet PO (08:18)
[2019-12-27] MEDS: Folic Acid 1 MG Tablet PO (08:18)
[2019-12-27 08:40] LABS: Absolute Lymphocyte Count 0.66 X10^3/uL (0.83-4.51); Absolute Neutrophil Count 1.5 X10^3/uL (2.0-7.7); Basophil# 0.01 X10^3/uL; Basophil% 0.4 % (0-1); Eosinophil# 0.07 X10^3/uL; Eosinophils% 2.8 % (0-5); Hematocrit 30.6 % (40-54); Hemoglobin 9.6 g/dL (13.0-16.5); Lymphocyte # 0.66 X10^3/ul (4.0); Lymphocyte % 26.4 % (19-41); Mean Corp Hgb Conc 31.4 g/dL (32-36); Mean Corpuscular Hgb 27.1 pg (27.0-32.0); Mean Corpuscular Volume 86.4 fL (80-94); Mean Platelet Vol. 10.9 fl (6.2-12.0); Monocyte# 0.26 X10^3/uL; Monocyte% 10.4 % (0-10); NRBC Flagged by Analyzer 0 % (0-5); Neutrophil # 1.49 X10^3/uL (2.7-7.7); Neutrophil % 59.6 % (47-70); POSITIVE COUNT YES; POSITIVE MORPHOLOGY YES; Platelet Count 89 K/mm3 (150-450); RBC Distribution Width CV 23.4 % (11.6-14.6); Red Blood Count 3.54 M/mm3 (4.6-6.2); White Blood Count 2.5 K/mm3 (4.4-11.0)
[2019-12-27 08:41] LABS: AST(SGOT) 53 U/L (15-37); Alanine Aminotransfer ALT/SGPT 27 U/L (16-61); Albumin, Serum 1.5 g/dL (3.2-5.0); Alkaline Phosphatase 142 U/L (45-117); Bilirubin, Direct 2.44 mg/dL (0.00-0.30); Globulin 4.9 g/dL (2.2-4.2); Protein, Total 6.4 g/dL (6.4-8.2)
[2019-12-27 08:44] LABS: Differential Indicated SCAN CRITERIA MET
[2019-12-27 09:25] LABS: Anisocytosis 1+
[2019-12-27 09:26] LABS: Platelet Estimate MOD DEC (ADEQ)
[2019-12-27] MEDS: dilTIAZem CD 240 MG Capsule PO (09:46)
[2019-12-27] MEDS: 0.9% Saline Lock 10 ML Syringe IV (09:46)
[2019-12-27] MEDS: oxyCODONE 5 MG Tablet PO ×3 (11:06→22:57)
[2019-12-27] MEDS: Menthol/Lanolin/Calamine/Znox 113 GM Tube 1 APPLIC TOPICAL ×2 (11:07→22:58)
--- NOTE | 2019-12-27 13:05 | CASEMGMT ---
Addendum entered by Reyna Mock 12/27/19 13:28: SW spoke with patient and let him know [facility] will not have a bed for him. SW showed him a list of facilities that are in network with his insurance. He did not want SW to call anyone in his family regarding picking a facility. He said he would prefer a facility where he can smoke. SIOBHAN told him there are 2 facilities that allow smoking, [facility] and [facility]. He was in agreement with either one of them. SIOBHAN told him SW will work on referrals and let him know. Reyna CORONEL Original Note: Per physician patient wants to go to a [facility] at discharge. SIOBHAN spoke with patient, introduced self and role at [facility]. SW asked patient if he knew which facility he would like. [facility] was mentioned to him and he said he would be okay with this. SIOBHAN told him SW will check to see if they have any available beds. SIOBHAN spoke with Anastasiia in TCU and they would not be able to give patient 8 beers a day as he is currently prescribed. Dr Gunter physician in [facility]CU will only prescribe him 2 beers a day. Also, [facility] does not have an available bed for patient. SW will check with patient to see which facility he would like to try next. SIOBHAN spoke attempted to talk with patient, but he was sleeping and SW could not wake him. SW will check back. Reyna CORONEL
--- NOTE | 2019-12-27 14:42 | CASEMGMT ---
SW called [facility] with referral and left voice mail. SW also faxed referral to [facility]. Reyna HAWK MSW
--- NOTE | 2019-12-27 15:04 | CASEMGMT ---
SW spoke with Lia at [facility] who said they can accept patient and she will start the pre-cert. She did not say anything about the prescribed alcohol. SW asked her if their physician would be willing to prescribe alcohol as patient has been getting 1-2 beers every 3 hours. She said she would have to check and will get back to . She also wanted to make sure patient knows he will not be able to smoke for 14 days while he is in quarantine. SW told her SW did speak with patient about this. Earlier SW spoke with patient and let him know that any [place] [facility] [place] facility he would go to right now will place him in quarantine for 14 days. During that time he will not be able smoke. He said that is fine. Reyna HAWK BANKMAN
--- NOTE | 2019-12-27 16:03 | CASEMGMT ---
SW received a call from Lia at [facility] and she said they are okay with patient having beer, but he would have to purchase it. She will start the pre-cert. SW is no longer on the unit to talk with patient, but do not anticipate this being a problem. SIOBHAN spoke with RN on the phone and notified her that [facility] will accept patient and she will pass this along to patient. Plan: [facility] pending insurance approval. Reyna HAWK MSW
[2019-12-27 16:25] LABS: Bedside Glucose 137 mg/dL (70-110)
--- NOTE | 2019-12-27 17:25 | PCM.PROGNOTE ---
Patient Problems: Active and Suspected Problems CHF (congestive heart failure) (Acute) SVT (supraventricular tachycardia) (Acute) Pancytopenia (Acute) Subjective: She was seen and examined today, he remains in sinus rhythm at this time, he is asymptomatic. I talked with the patient this morning, he would like to go to an extended care facility for short-term rehab, we had PT and OT see the patient today. Patient knows he will not be able to drink in an extended care facility. Objective: General: Alert, Oriented x3, Cooperative, No apparent distress, Well developed HEENT: Atraumatic, PERRLA, EOMI, Normocephalic Oral: Moist Mucosa Neck: Supple, No JVD, Trachea Midline, Thyroid Normal Size and Texture Lungs: Clear to auscultation, Normal air movement, No rhonchi, No wheeze Cardiovascular: Regular rate, No murmurs Abdomen: Bowel Sounds Present, Soft, Non Tender, Non-Distended, No hernias noted Extremities: Capillary Refill Less than 3 Seconds, Edema - Generalized edema is noted over both lower extremities with changes indicative of lymphedema bilaterally Skin: No rashes, No breakdown Musculoskeletal: No Tenderness to Palpation of Joints or Extremities Neurological: Cranial nerves II-XII grossly intact, Neuro grossly intact, Sensory exam intact to light touch and pain Psych/Mental Status: Normal Affect, Appropriate, Alert and oriented to time, place, person, mood and affect - Physical Exam Vitals/I&O's: Vital Signs Temp Pulse Resp BP Pulse Ox 98.4 F 74 19 H 128/61 H 92 12/27/19 12:21 12/27/19 15:40 12/27/19 12:21 12/27/19 12:21 12/27/19 12:21 Oxygen Flow Rate (L/min) 2 Oxygen Delivery Method Room Air Weight: 111.2 kg Body Mass Index (BMI) 35.2 Intake and Output for Last 24 Hours 12/25/19 12/26/19 12/27/19 23:59 23:59 23:59 Intake Total 562 / 562 4514.83 / 5381.49 3158.19 / 3158.19 Output Total 4875 / 4875 925 / 925 Balance -4313 / -4313 3589.83 / 4456.49 3158.19 / 3158.19 Microbiology Past 72 Hours 12/25/19 00:23 Blood Culture (Wb) - Right Hand Blood Culture - Preliminary No growth in 48 hours. 12/24/19 23:43 Blood Culture (Wb) - No Site/Description Given Blood Culture - Preliminary No growth in 48 hours. Laboratory Results 12/26/19 16:26: POC Glucose 121 H 12/26/19 23:11: POC Glucose 112 H 12/27/19 05:16: Sodium 131 L, Potassium 3.6, Chloride 100, Carbon Dioxide 25.0, Anion Gap 6, BUN 15, Creatinine 0.62 L, Estim Creat Clear Calc 145.54, Est GFR (MDRD) Af Amer 176, Est GFR (MDRD) Non-Af 145, BUN/Creatinine Ratio 24.2 H, Glucose 101, Calcium 7.3 L, Magnesium 1.8 12/27/19 05:16: WBC 2.5 L, RBC 3.54 L, Hgb 9.6 L, Hct 30.6 L, MCV 86.4, MCH 27.1, MCHC 31.4 L, RDW Std Deviation 73.0 H, RDW Coeff of Chacha 23.4 H, Plt Count 89 L, MPV 10.9, Immature Gran % (Auto) 0.400, Neut % (Auto) 59.6, Lymph % (Auto) 26.4, [place] % (Auto) 10.4 H, Eos % (Auto) 2.8, Baso % (Auto) 0.4, Absolute Neuts (auto) 1.5 L, Absolute Lymphs (auto) 0.66 L, Nucleated RBC % 0, Platelet Estimate MOD DEC, Anisocytosis 1+ 12/27/19 05:16: Total Bilirubin 3.70 H, Direct Bilirubin 2.44 H, AST 53 H, ALT 27, Alkaline Phosphatase 142 H, Total Protein 6.4, Albumin 1.5 L, Globulin 4.9 H 12/27/19 06:04: POC Glucose 117 H 12/27/19 16:20: COVID-19 (SELAM) Pending 12/27/19 16:22: POC Glucose 137 H Current Medications Calamine/Phenol (Calmoseptine Ointment) 1 applic TOPICAL BID PADMA; Protocol Last Admin: 12/27/19 11:07 Dose: 1 applicatio Documented by: Dextrose (D50w Syringe) 0 gm IV X1 PRN; Protocol PRN Reason: Hypoglycemia Enoxaparin Sodium (Lovenox) 40 mg SC DAILY [facility] Last Admin: 12/27/19 10:58 Dose: Not Given Documented by: Folic Acid (Folic Acid) 1 mg PO DAILY@0800 [facility] Last Admin: 12/27/19 08:18 Dose: 1 mg Documented by: Glucagon () 1 mg IM .X1 PRN PRN Reason: Hypoglycemia Ibuprofen (Motrin) 600 mg PO Q6H PRN PRN PRN Reason: HEADACHE (1-10) Last Admin: 12/26/19 10:12 Dose: 600 mg Documented by: Loperamide HCl (Imodium) 2 mg PO Q4H PRN PRN PRN Reason: LOOSE STOOLS Morphine Sulfate () 2 mg IV Q4H PRN PRN PRN Reason: pain 6-10/10 Last Admin: 12/26/19 20:36 Dose: 2 mg Documented by: Nicotine (Nicoderm Cq (Pbkc)) 21 mg TRANSDERM. DAILY [facility] Last Admin: 12/27/19 09:58 Dose: 21 mg Documented by: Nutritional Formula (Eusebio - [place] Flavor) [facility] Last Admin: 12/27/19 08:18 Dose: 1 packet Documented by: Ondansetron HCl (Zofran) 8 mg PO Q8H PRN PRN PRN Reason: NAUSEA Last Admin: 12/26/19 10:12 Dose: 8 mg Documented by: Ondansetron HCl (Zofran) 4 mg IV Q4H PRN PRN Reason: NAUSEA Last Admin: 12/26/19 14:32 Dose: 4 mg Documented by: Oxycodone HCl (Oxyir) 5 mg PO Q4H PRN PRN PRN Reason: Pain Score 6-10/10 Last Admin: 12/27/19 11:06 Dose: 5 mg Documented by: Prochlorperazine Edisylate (Compazine Iv) 5 mg IV Q4H PRN PRN PRN Reason: NAUSEA/VOMITING Sodium Chloride () 10 - 40 ml IV UD PRN PRN Reason: SALINE FLUSH Last Admin: 12/27/19 09:46 Dose: 20 ml Documented by: Thiamine HCl (Vitamin B1) [facility] Last Admin: 12/27/19 08:18 Dose: 100 mg Documented by: Medical Necessity - Tobacco Use Smoking Status: Current every day smoker Assessment/Plan All Active Problems CHF (congestive heart failure) (Acute) SVT (supraventricular tachycardia) (Acute) Pancytopenia (Acute) #1 generalized anasarca secondary to alcoholic liver disease #2 persistent supraventricular tachycardia-patient is now in sinus rhythm, I talked with cardiology about his care today-they are participating in his care. #3 pancytopenia secondary to alcoholic liver disease-no treatment at this time, white blood cell count is improved at this time #4 alcoholic liver disease-bilirubin is still elevated with minor elevation in AST. #5 chronic alcoholism #6 chronic obstructive pulmonary disease per history #7 chronic lymphedema of the legs #8 type 2 diabetes-monitor blood sugars, sliding scale insulin is being used #9 generalized debility secondary to multiple medical problems Inpatient E&M: 48503 Subs Hosp L2
[2019-12-27 23:31] LABS: Bedside Glucose 128 mg/dL (70-110)
[2019-12-28 03:04] VITALS: PULSE 76
[2019-12-28 03:20] VITALS: BP 116/59; PULSE 73; RESP 18; TEMP 36.8; O2SAT 95
[2019-12-28 06:45] LABS: Bedside Glucose 143 mg/dL (70-110)
[2019-12-28 07:13] VITALS: PULSE 76
[2019-12-28 07:37] VITALS: O2SAT 93
--- NOTE | 2019-12-28 07:59 | PCM.PN.CARD ---
Subjectve: The patient is awake and alert. He states he has decided to go to an extended care facility to get rest . In the meantime he has had no new acute cardiovascular complaints. Objective: Vital Signs Temp Pulse Resp BP Pulse Ox 98.3 F 76 18 116/59 L 93 12/28/19 03:20 12/28/19 07:13 12/28/19 03:20 12/28/19 03:20 12/28/19 07:37 Oxygen Flow Rate (L/min) 2 Oxygen Delivery Method Room Air Weight: 245 lb 2.464 oz Body Mass Index (BMI) 35.2 Intake and Output for Last 24 Hours 12/26/19 12/27/19 12/28/19 23:59 23:59 23:59 Intake Total 4514.83 / 5381.49 4138.19 / 4138.19 480 / 480 Output Total 925 / 925 240 / 240 500 / 500 Balance 3589.83 / 4456.49 3898.19 / 3898.19 -20 / 20 General: Awake, Alert, Oriented x 3, Cooperative, No Acute Distress HEENT: Atraumatic, Normocephalic, PERRL, EOMI Neck: Supple, Good ROM, No JVD Lungs: Clear to auscultation Cardiovascular: Regular Rhythm, Normal S1, Normal S2 Abdomen: Bowel Sounds Present, Soft Extremities: Severe RLE Edema, Severe LLE Edema - Bilateral lower extremities: Chronic lymphedema Psych/Mental Status: Flat Affect 12/27/19 05:16: WBC 2.5 L, RBC 3.54 L, Hgb 9.6 L, Hct 30.6 L, MCV 86.4, MCH 27.1, MCHC 31.4 L, Plt Count 89 L, MPV 10.9, Immature Gran % (Auto) 0.400, Neut % (Auto) 59.6, Lymph % (Auto) 26.4, [place] % (Auto) 10.4 H, Eos % (Auto) 2.8, Baso % (Auto) 0.4, Absolute Neuts (auto) 1.5 L, Nucleated RBC % 0 12/27/19 05:16: Total Bilirubin 3.70 H, Direct Bilirubin 2.44 H Rhythm: Sinus rhythm Medical Necessity - Tobacco Use Smoking Status: Current every day smoker Assessment/Plan 1. 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 This may be exacerbated by the patient's underlying multiple medical issues. At the present time the patient is being monitored. He has had recurrent events of the PSVT requiring IV adenosine. He has required multiple medications in an attempt to control his rate and rhythm including calcium channel antagonist, beta-blockers, digitalis, and IV amiodarone. At the moment he appears to be remaining in sinus rhythm status post initiation of IV diltiazem and subsequently oral diltiazem therapy. Thus he will continue oral diltiazem therapy. His case was, with his permission, discussed with Dada Manzano MD, of [facility] Electrophysiology. Status post discussion the consensus was for continued attempts at rate/rhythm control with calcium channel antagonist versus beta-blockers versus a combination of both with an attempt to avoid antiarrhythmic agents. If the patient has recurrent episodes of SVT that are unresponsive to medical management then he would need to be considered for evaluation at a tertiary care center for EPS/RFA. 2. Alcohol abuse The patient is being evaluated by internal medicine for alcohol abuse and alcohol withdrawal. 3. Lymphedema The patient does have findings compatible with lymphedema. This may be secondary to the patient's longstanding history of alcohol abuse and findings of hypoproteinemia and hypoalbuminemia. He is continuing medical therapy with diuretic therapy and Brandyn wraps therapy. 4. Pancytopenia The patient does have pancytopenia. Again this may be secondary to the patient's alcohol abuse history. This can raise concerns with respect to additional evaluation/procedures/medications, etc. 5. COPD The patient states he has a history of COPD. He does not follow with any physicians. 6. Arthritis The patient states he has rheumatoid arthritis and walks with a cane. Again he states he does not follow with any physicians or take any medications. 7. Diabetes The patient is being evaluated by internal medicine for concerns of diabetes. Overall, at the present time, from a cardiovascular standpoint, the patient will continue medical therapy with his calcium channel antagonist. If he has recurrent episodes of SVT despite multiple medication attempts, etc., then he should be considered to be transferred to a tertiary care center for further EP evaluation. This note was generated using a voice recognition system and there may be incorrect words, spelling or punctuation that were not noted when reviewing the office note prior to saving.
[2019-12-28] MEDS: Thiamine Hydrochloride 100 MG Tablet PO (08:17)
[2019-12-28] MEDS: Folic Acid 1 MG Tablet PO (08:17)
[2019-12-28] MEDS: oxyCODONE 5 MG Tablet PO ×2 (08:17→15:11)
[2019-12-28 09:14] VITALS: BP 129/73; PULSE 77; RESP 19; TEMP 36.8; O2SAT 93
[2019-12-28] MEDS: Enoxaparin 40 MG/0.4 ML Syringe SC (09:20)
[2019-12-28] MEDS: dilTIAZem CD 240 MG Capsule PO (09:26)
[2019-12-28] MEDS: Menthol/Lanolin/Calamine/Znox 113 GM Tube 1 APPLIC TOPICAL (09:26)
--- NOTE | 2019-12-28 13:26 | PCM.TXEXTCAR ---
- Diet 12/25/19 15:45 Diet: Cardiac: Calorie-Controlled Food consistency:: Regular Liquid Consistency:: Regular/Thin Dietary Modifications:: Fluid Restricted Diet Diet Comments: low sodium; How many daily calories?: 2200 calorie - Wound(s) right heel Wound Type: Neuropathic/Diabetic Foot Ulcer left heel ulcer Wound Type: Neuropathic/Diabetic Foot Ulcer R ankle/ posterior calf Wound Type: cracked, seeping area L ankle, posterior calf Wound Type: cracked, seeping area right buttock Wound Type: Pressure Injury Dressing Change: Mepilex - Therapies Weight Bearing: Full weight bearing Physical Therapy: Eval and Treat Occupational Therapy: Eval and Treat - Problem/Diagnosis (1) Anasarca Status: Chronic Comment: secondary to alcohol abuse, no CHF Current Visit: Yes (2) Alcohol abuse Status: Chronic Current Visit: Yes (3) Lymphedema Status: Chronic Current Visit: Yes (4) Diabetes Status: Chronic Comment: diet controlled Current Visit: Yes (5) COPD (chronic obstructive pulmonary disease) Status: Chronic Current Visit: Yes (6) Arthritis Status: Chronic Current Visit: Yes (7) Alcoholic liver damage Status: Chronic Comment: suspected Current Visit: Yes - Allergies/Procedures Done in Hospital Allergies/Adverse Reactions: Allergies shellfish derived Allergy (Verified 12/24/19 23:27) Anaphylaxis venom-honey bee [bee venom (honey bee)] Allergy (Verified 12/24/19 23:27) Swelling codeine Adverse Reaction (Verified 12/24/19 23:27) Nausea Procedures: 2-D Echocardiogram - Type of Care/Length of Stay Estimated LOS: Convalescent Care Less Than 30 days Type of Care Needed: Skilled Rehab Potential: Good Prognosis: Good - Additional Orders/Day of Discharge Additional Orders: patient may have beer with meals H&P will serve as current which was dated: 12/25/19 Day of Discharge: 12/28/19 - Dietary and Speech Recommendations Dietitian Recommendations/Changes: Continue Cardiac: 2200 calorie, low sodium diet with 1500 ml fluid restriction. Continue Eusebio 1pkt BID for wound healing. - Follow Up Care Primary Care Physician: Care Physician,No Primary [Primary Care Provider] -
--- NOTE | 2019-12-28 13:28 | CASEMGMT ---
Social Work Met with patient to complete Living Will. Pt stated he has HCPOA paperwork naming his . LW copy placed on chart. [facility] received precert for pt to discharge on this date. [facility] agreed to purchase alcohol for pt but it would be billed to him. Pt agreeable and stated I haven't drank for 3 days so I may not need it. Praised pt and encouraged pt to continue with that sobriety. SW to complete HENS and schedule w/c transport. Plan: DC to [facility] 12/27. Fiordaliza Hutchinson, [employer]TER CAPTION WRITER
--- NOTE | 2019-12-28 14:29 | PHA.DC.MR ---
Pharmacy Service has performed discharge medication reconciliation for this patient upon transfer to [facility]. The patient's discharge medication list was reviewed for discrepancies and discrepancies were resolved. Home Medications Albuterol Inhaler [Ventolin Hfa] 1 - 2 puff INHALATION Q4H PRN PRN 04/23/14 Fluticasone/Salmeterol [Advair 250/50 Mcg Diskus] 1 puff INHALATION BID 04/23/14 Diltiazem CD [Cardizem CD] 240 mg PO DAILY #30 cap 12/27/19 Emollient Combination No.72 [Eucerin Intensive Repair] 1 applic TOPICAL 4X/DAY PRN PRN lotion 12/28/19
--- NOTE | 2019-12-28 14:56 | CASEMGMT ---
Social Work Pt ready for discharge on this date. 7000 form completed, discharge orders faxed to [facility] and phone call to Lia telling her of d/c time. [facility] for 3:30 pick by wheelchair van. Pt and nurse made aware of d/c time. CHANI Hyatt
[2019-12-28 15:05] VITALS: BP 115/60; PULSE 73; RESP 19; TEMP 36.8; O2SAT 94
--- NOTE | 2019-12-28 15:30 | NURSING ---
Report called to Ariadne Jacobs at [facility]
--- NOTE | 2020-01-07 07:45 | DS.PCM_ITS ---
Discharge Date and Diagnosis Date of Admission: 12/25/19 Date of Discharge: 12/28/19 - Primary Discharge Diagnosis Acute Problems: #1 generalized anasarca secondary to alcoholic liver disease #2 persistent supraventricular tachycardia #3 pancytopenia secondary to alcoholic liver disease #4 alcoholic liver disease #5 chronic alcoholism #6 chronic obstructive pulmonary disease per history #7 chronic lymphedema of the legs #8 type 2 diabetes #9 generalized debility secondary to multiple medical problems #10 alcoholic hepatitis No evidence for congestive heart failure, acute congestive heart failure was ruled out - Secondary Discharge Diagnosis Chronic Problems: Chronic Problems Alcohol abuse (Chronic) Lymphedema (Chronic) Diabetes (Chronic) diet controlled COPD (chronic obstructive pulmonary disease) (Chronic) Arthritis (Chronic) Anasarca (Chronic) secondary to alcohol abuse, no CHF Alcoholic liver damage (Chronic) suspected Hospital Course and Treatment Consultations 12/25/19 07:11 Consult: Onc/Wound/mexican food machine tender Routine Comment: Reason for Consult:: BLLE seeping open areas Operations: None Procedures: 2-D Echocardiogram Summary of Care Provided: The patient is a 49 year old M who was seen in the emergency room at [facility] with a chief complaint of increasing edema in the lower extremities, patient admitted to excessive drinking on a daily basis. Patient had not been seen by a primary care physician-his last hospitalization here was approximately 2 years ago when he was found to be in SVT, he was converted at that time with adenosine and checked out AGAINST MEDICAL ADVICE. Work-up in the emergency room included an EKG which showed sinus rhythm with no acute injury pattern, chest x-ray showed stable cardiac enlargement with mild vascular congestion and interstitial prominence, CBC showed a pancytopenia with low white blood cell count, anemia, and low platelet count. Patient's INR was 1.5, chemistry profile showed a slightly low sodium, glucose was 198, bilirubin was elevated at 3.6, AST was elevated at 74, and alkaline phosphatase was elevated at 195. Patient's lactic acid was 4.3, urinalysis was unremarkable. Beta natruretic peptide was 877. Patient was admitted to PCU for congestive heart failure, he was treated with IV diuresis, he was seen by cardiology who did not feel that the patient had congestive heart failure but rather felt that the patient had anasarca. Patient was seen by PT and OT, he had several episodes of cardiac arrhythmia which was thought to be paroxysmal supraventricular tachycardia, multiple medications were used to control this with the patient finally converted to sinus rhythm. Patient was felt to benefit from a short inpatient care home stay and the patient agreed to this, on 12/28/2019, he was discharged to a local extended care facility in stable condition. On 12/28/2019, patient was seen and examined:General: Alert, Oriented x3, Cooperative, No apparent distress, Well developed HEENT: Atraumatic, PERRLA, EOMI, Normocephalic Oral: Moist Mucosa Neck: Supple, No JVD, Trachea Midline, Thyroid Normal Size and Texture Lungs: Clear to auscultation, Normal air movement, No rhonchi, No wheeze Cardiovascular: Regular rate, No murmurs Abdomen: Bowel Sounds Present, Soft, Non Tender, Non-Distended, No hernias noted Extremities: Capillary Refill Less than 3 Seconds, Edema - Generalized edema is noted over both lower extremities with changes indicative of lymphedema bilaterally Skin: No rashes, No breakdown Musculoskeletal: No Tenderness to Palpation of Joints or Extremities Neurological: Cranial nerves II-XII grossly intact, Neuro grossly intact, Sensory exam intact to light touch and pain Psych/Mental Status: Normal Affect, Appropriate, Alert and oriented to time, place, person, mood and affect - Physical Exam Vitals/I&O's: Vital Signs Temp Pulse Resp BP Pulse Ox 98.3 F 73 19 H 115/60 94 12/28/19 15:05 12/28/19 15:05 12/28/19 15:05 12/28/19 15:05 12/28/19 15:05 Oxygen Flow Rate (L/min) 2 Oxygen Delivery Method Room Air Weight: 111.2 kg Body Mass Index (BMI) 35.2 Home Medications: Medications to take at Discharge Albuterol Inhaler [Ventolin Hfa] 1 - 2 puff INHALATION Q4H PRN PRN 04/23/14 Fluticasone/Salmeterol [Advair 250/50 Mcg Diskus] 1 puff INHALATION BID 04/23/14 Diltiazem CD [Cardizem CD] 240 mg PO DAILY #30 cap 12/27/19 Diltiazem CD [Cardizem CD] 240 mg PO DAILY cap 12/28/19 Emollient Combination No.72 [Eucerin Intensive Repair] 1 applic TOPICAL 4X/DAY PRN PRN lotion 12/28/19 Following Prescrptions Were Given to Patient: Diltiazem CD [Cardizem CD] 240 mg PO DAILY #30 cap Transmission Status: Received by [facility] #30 Primary Care Physician: Care Physician,No Primary [Primary Care Provider] - Disposition: Retirement facility Minutes spent on discharge:: 31 Patient Condition:: Stable Medical Necessity - Tobacco Use Smoking Status: Current every day smoker Meaningful Use Info Meaningful Use Diagnoses (Choose all that apply): None applicable Inpatient E&M: 37046 Disch Hosp
== END 2019-12-28 15:21 | disposition skilled nursing facility (03) | DRG 948 ==
LOC: ED 12-25 00:36 → PCU 12-25 01:13
PROVIDERS: Family Medicine; Internal Medicine Cardiovascular Disease; Admitting Provider Family Medicine; Emergency Provider Emergency Medicine; Visit Provider Internal Medicine
DX: R60.1 Generalized edema (principal); D61.818 Other pancytopenia; I47.1 Supraventricular tachycardia; F10.239 Alcohol dependence with withdrawal, unspecified; E11.9 Type 2 diabetes mellitus without complications; F17.200 Nicotine dependence, unspecified, uncomplicated; M19.90 Unspecified osteoarthritis, unspecified site; J44.9 Chronic obstructive pulmonary disease, unspecified; M06.9 Rheumatoid arthritis, unspecified; I89.0 Lymphedema, not elsewhere classified; E88.09 Other disorders of plasma-protein metabolism, not elsewhere classified; E77.8 Other disorders of glycoprotein metabolism; K70.9 Alcoholic liver disease, unspecified; R53.81 Other malaise; K70.10 Alcoholic hepatitis without ascites
CPT/HCPCS: 36415; 71045; 74018; 80048; 80053; 80076; 80320; 81001; 82140; 82962; 83605; 83735; 83880; 84100; 84443; 84484; 85025; 85610; 87040; 87635; 93005; 93306; 97162; 97166; 97530; 97802; 99285; 99406; G2023; J7030; J7040; Q9957; A4216; G0480; J0153; J1940; J2405; U0003

== ENCOUNTER 2020-01-09 19:34 | Inpatient (IN) | payer MEDICARE, SELFPAY ==
[2019-12-25 01:31] VITALS: BMI 35.2
[2020-01-09 19:36] VITALS: BP 126/90; PULSE 172; RESP 27; TEMP 36.9; O2SAT 100; BMI 40.1
--- NOTE | 2020-01-09 19:46 | ED.RN ---
CALLED FOR EKG PER RN REQUEST, PULLED OLD EKGS FOR
--- NOTE | 2020-01-09 19:52 | EKG12_ITS ---
Test Reason : TACHYCARDIA Blood Pressure : / mmHG Vent. Rate : 115 BPM Atrial Rate : 156 BPM P-R Int : 000 ms QRS Dur : 100 ms QT Int : 446 ms P-R-T Axes : 000 052 249 degrees QTc Int : 616 ms Sinus Rhythm with PAC's Nonspecific T wave abnormality Abnormal ECG When compared with ECG of 09-JAN-2020 19:47, MANUAL COMPARISON REQUIRED, DATA IS UNCONFIRMED Confirmed by ISH HANKINS, CORY ([id number]), makeup editor CECY MARKS ([id number]) on 01/14/2020 2:15:15 PM Referred By: JOEL Confirmed By:THAI DENG MD
--- NOTE | 2020-01-09 19:55 | ED.DCSUM_ITS ---
History of Present Illness Chief Complaint: Weakness Detail of Chief Complaint: called ambulance because of generalized weakness, decreased LOC Onset: Days Context: Gradual Onset Timing: Continuous Quality: Please read HPI Location: Lives in the basement. His lives first floor Current Severity: Severe Maximum Severity: Severe Worsened by: Noncompliance Relieved by: Nothing Associated Symptoms: Dyspnea, weight gain, swelling, Narrative: Patient is a 49-year-old male with history of alcoholism who admits to drinking 12-15 beers a day and smoking 2 to 2.5 packs of cigarettes a day who was recently seen at [facility]. Is discharged on extended care facility. He signed out AGAINST MEDICAL ADVICE. He presents because of trouble breathing and wheezing. He states he is not been able to bathe in some time. He states his been in his chair for 4 days. He states the refrigerator with the beer is within reach of the chair. Review of prior records indicates patient has persistent supraventricular tachycardia. Patient does report rash on his arms and legs. Prior similar symptoms: Yes Recent Illness/Hospitalization: Yes - Past Medical History (1) CHF (congestive heart failure) Status: Acute (2) Pancytopenia Status: Acute (3) SVT (supraventricular tachycardia) Status: Acute (4) Alcohol abuse Status: Chronic (5) Alcoholic liver damage Status: Chronic Comment: suspected (6) Anasarca Status: Chronic Comment: secondary to alcohol abuse, no CHF (7) Arthritis Status: Chronic (8) COPD (chronic obstructive pulmonary disease) Status: Chronic (9) Diabetes Status: Chronic Comment: diet controlled (10) Lymphedema Status: Chronic Past Medical History - Allergies and Home Meds Allergies/Adverse Reactions: Allergies shellfish derived Allergy (Verified 01/09/20 19:39) Anaphylaxis venom-honey bee [bee venom (honey bee)] Allergy (Verified 01/09/20 19:39) Swelling codeine Adverse Reaction (Verified 01/09/20 19:39) Nausea Primary Care Physician: Care Physician,No Primary [Primary Care Provider] - Prior records reviewed: Yes Surgical History: noncontributory Lives: Spouse/ Significant Other Smoking Status: Current every day smoker Alcohol: Heavy Drugs: None - Family History Maternal Family History: Reports: No pertinent history Review of Systems General: Reports: Malaise. Denies: Chills, Fever, Subjective, Sweats Eyes: Denies: Visual changes - bilaterally, Blurred Vision - bilaterally ENT: Denies: Bilateral ear pain, Rhinorrhea, Sore throat Cardiovascular: Reports: Palpitations. Denies: Chest pain Respiratory: Reports: Dyspnea, Cough, Dyspnea on exertion. Denies: Sputum Gastrointestinal: Reports: Abdominal pain, Nausea. Denies: Vomiting, Diarrhea, Constipation, Melena, Hematochezia Genitourinary: Denies: Hematuria Musculoskeletal: Reports: Swelling. Denies: Myalgias, Arthralgias, Extremity Pain Skin: Denies: Rash Neurological: Reports: Weakness. Denies: Headache Psych: Reports: Depression Endocrine: Denies: Polyuria, Polydipsia Hematologic: Reports: Easy bruising Physical Exam Vital Signs/Narrative: Vital Signs Temp Pulse Resp BP Pulse Ox 01/09/20 19:36 98.4 F 172 H 27 H 126/90 H 100 Inital Vital Signs reviewed: Yes General: Well nourished, Well developed, Obese, Unkempt, Acute Distress Head: Normocephalic, Atraumatic Eyes: Perrl, EOMI, Scleral icterus. Negative for: Pale conjunctiva ENT: No rhinorrhea, TM's clear Neck: Supple, Nontender, No lymphadenopathy. Negative for: No JVD Cardiovascular: Regular rhythm, Tachycardia Respiratory: Rales, Wheezing, Diminished, Decreased Air Movement, - - In spiratory rales. There is expiratory wheezing with increased expiratory phase.. Negative for: No distress, CTA bilaterally Abdomen: Soft, Nontender, No masses, Hypoactive bowel sounds, - - And has a fluid wave consistent with ascites.. Negative for: Nondistended, Normal bowel sounds, Tender, Guarding, Rebound tenderness, Hyperactive bowel sounds Rectal: Deferred Back: Nontender Extremities: Nontender, Edema Skin: Jaundice, - - She does have petechia.. Negative for: Normal color, No rash, Cyanosis, Diaphoresis Neurological: Alert, Oriented x3, Cranial nerves II-XII grossly intact. Negative for: Normal Strength, Normal Gait Psychological: Depressed Diagnostic/Tx/Re-eval Impressions Chest X-Ray 01/09/20 19:55 IMPRESSION: Acute and/or chronic congestive heart failure with cardiomegaly and pulmonary venous congestion, interstitial edema and bilateral pleural effusions. Electronically Signed: Paige Villa MD at 20:12 EDT , Service support , 01/09/20 19:55 Chest 1 View (Portable) [RAD] Stat Laboratory Results 01/09/20 01/09/20 01/09/20 19:50 19:50 19:50 WBC 2.7 L RBC 4.23 L Hgb 11.4 L Hct 35.4 L MCV 83.7 MCH 27.0 MCHC 32.2 RDW Std Deviation 66.2 H RDW Coeff of [place] 22.1 H Plt Count 160 MPV 8.6 Immature Gran % (Auto) 0.400 Neut % (Auto) 72.8 H Lymph % (Auto) 16.6 L [place] % (Auto) 6.4 Eos % (Auto) 3.4 Baso % (Auto) 0.4 Absolute Neuts (auto) 1.9 L Absolute Lymphs (auto) 0.44 L Nucleated RBC % 0 Differential Comment Diff Path Review May foll Platelet Estimate ADEQUATE Hypochromasia RARE Anisocytosis 1+ PT 18.0 H INR 1.5 Specimen Type VBG pH VBG pO2 VBG HCO3 VBG O2 Sat (Calc) VBG O2 Content VBG Base Excess POC Mix VBG pCO2 Pt Tmp Sodium 126 L Potassium 4.5 Chloride 99 Carbon Dioxide 21.0 Anion Gap 6 BUN 6 L Creatinine 0.52 L Estim Creat Clear Calc 173.53 Est GFR (MDRD) Af Amer 215 Est GFR (MDRD) Non-Af 178 BUN/Creatinine Ratio 11.6 Glucose 113 H Calcium 7.3 L Total Bilirubin 3.80 H AST 50 H ALT 21 Alkaline Phosphatase 184 H Ammonia Troponin I < 0.015 B-Natriuretic Peptide Total Protein 7.1 Albumin 1.5 L Globulin 5.6 H Albumin/Globulin Ratio 0.3 L Urine Color Urine Clarity Urine pH Ur Specific [place] Urine Protein Urine Glucose (UA) Urine Ketones Urine Occult Blood Urine Nitrite Urine Bilirubin Urine Urobilinogen Ur Leukocyte Esterase Urine RBC Urine WBC Ur Squamous Epith Cells Urine Bacteria Urine Mucus Ethyl Alcohol 01/09/20 01/09/20 01/09/20 19:50 19:50 20:05 WBC RBC Hgb Hct MCV MCH MCHC RDW Std Deviation RDW Coeff of [place] Plt Count MPV Immature Gran % (Auto) Neut % (Auto) Lymph % (Auto) [place] % (Auto) Eos % (Auto) Baso % (Auto) Absolute Neuts (auto) Absolute Lymphs (auto) Nucleated RBC % Differential Comment Diff Path Review Platelet Estimate Hypochromasia Anisocytosis PT INR Specimen Type TONE VBG pH 7.36 VBG pO2 30 VBG HCO3 18 L VBG O2 Sat (Calc) 57 VBG O2 Content 19 L VBG Base Excess -8 L POC Mix VBG pCO2 Pt Tmp 31.3 L Sodium Potassium Chloride Carbon Dioxide Anion Gap BUN Creatinine Estim Creat Clear Calc Est GFR (MDRD) Af Amer Est GFR (MDRD) Non-Af BUN/Creatinine Ratio Glucose Calcium Total Bilirubin AST ALT Alkaline Phosphatase Ammonia Troponin I B-Natriuretic Peptide 975.6 H Total Protein Albumin Globulin Albumin/Globulin Ratio Urine Color Urine Clarity Urine pH Ur Specific [place] Urine Protein Urine Glucose (UA) Urine Ketones Urine Occult Blood Urine Nitrite Urine Bilirubin Urine Urobilinogen Ur Leukocyte Esterase Urine RBC Urine WBC Ur Squamous Epith Cells Urine Bacteria Urine Mucus Ethyl Alcohol 152.0 01/09/20 01/09/20 20:08 21:00 WBC RBC Hgb Hct MCV MCH MCHC RDW Std Deviation RDW Coeff of [place] Plt Count MPV Immature Gran % (Auto) Neut % (Auto) Lymph % (Auto) [place] % (Auto) Eos % (Auto) Baso % (Auto) Absolute Neuts (auto) Absolute Lymphs (auto) Nucleated RBC % Differential Comment Diff Path Review Platelet Estimate Hypochromasia Anisocytosis PT INR Specimen Type VBG pH VBG pO2 VBG HCO3 VBG O2 Sat (Calc) VBG O2 Content VBG Base Excess POC Mix VBG pCO2 Pt Tmp Sodium Potassium Chloride Carbon Dioxide Anion Gap BUN Creatinine Estim Creat Clear Calc Est GFR (MDRD) Af Amer Est GFR (MDRD) Non-Af BUN/Creatinine Ratio Glucose Calcium Total Bilirubin AST ALT Alkaline Phosphatase Ammonia 29.0 Troponin I B-Natriuretic Peptide Total Protein Albumin Globulin Albumin/Globulin Ratio Urine Color Yellow Urine Clarity Clear Urine pH 6.0 Ur Specific [place] 1.015 Urine Protein 15 H Urine Glucose (UA) Normal Urine Ketones 5 H Urine Occult Blood 10 H Urine Nitrite Negative Urine Bilirubin 1 H Urine Urobilinogen 8 H Ur Leukocyte Esterase 25 H Urine RBC 0 SEEN Urine WBC 0 SEEN Ur Squamous Epith Cells 0 SEEN Urine Bacteria RARE Urine Mucus 0 SEEN Ethyl Alcohol X-ray was acute on chronic congestive heart failure. BNP is elevated. Urine is remarkable for bilirubin. White count is 2.7 which is his baseline. Platelet count has improved and is 160,000. Ammonia level is normal. Alcohol is elevated 152. Venous blood gas reveals a metabolic acidosis. Troponin was normal. Albumin is only 1.5. This has contributed patient's anasarca, ascites and heart failure. He does have a coagulopathy due to alcoholic liver disease. Patient converted to a sinus rhythm after 20 mg of Cardizem. He also received Lasix 40 mg IV push. - Rhythm Strip Rhythm Strip: Narrow complex tachycardia rate of 170+ - EKG Initial EKG Interpretation: - - Patient with narrow complex tachycardia rate of 174. This probably represents a reentry tachycardia. QRS duration 92 ms. QT duration 282 ms. There is an ossific ST-T wave changes most likely rate dependent. [place] is normal. - Medical Decision Making Altered mental status jaundice need to rule out hepatic encephalopathy. Ammonia levels obtained. With inspiratory rales and wheezing need to rule out congestive heart failure versus COPD versus combination. Will obtain CBC to assess white count, H&H and platelets since he does have petechia. Patient was informed he will require admission to the hospital. Patient's narrow complex reentry tachycardia was treated with 20 mg of Cardizem IV push. ED Disposition - Plan for ED Patient: Disposition: Acute Care Hospital [facility] Diagnosis: Paroxysmal supraventricular tachycardia by electrocardiogram (ECG), Acute exac erbation of congestive heart failure, Anasarca, Alcoholic liver disease, Coagulopathy, Hyponatremia, Acute alcoholic intoxication in alcoholism (blood level 0.08-0.29), COPD (chronic obstructive pulmonary disease), COPD exacerbation Referrals: Care Physician,No Primary [Primary Care Provider] -
--- NOTE | 2020-01-09 19:55 | RAD_ITS ---
STUDY: X-RAY CHEST REASON FOR EXAM: Male, 49 years old. WEAKNESS, EDEMA, SOB. +ETOH, HX OF COPD TECHNIQUE: 1 view COMPARISON: Prior chest radiograph of 12/24/2019, 10/15/2017 and July 02 FINDINGS: Lung cox are expanded with diffuse interstitial changes similar to the prior exam of 11/24/2019 but increased from 10/15/2017. Small to moderate bilateral pleural effusions. Cardiomegaly. Normal mediastinum and santi. Pulmonary venous congestion. Normal visualized aortic arch and descending thoracic aorta. Normal visualized thoracic spine. Normal visualized ribs, clavicles, and shoulders. There is no demonstrated abnormality of the visualized soft tissue structures of the upper abdomen. RAD/Chest 1 View (Portable) IMPRESSION: Acute and/or chronic congestive heart failure with cardiomegaly and pulmonary venous congestion, interstitial edema and bilateral pleural effusions. Electronically Signed: Paige Villa MD at 20:12 EDT , Service support ,
[2020-01-09] MEDS: dilTIAZem 25 MG/5 ML Vial 20 MG IV BOLUS (20:01)
[2020-01-09 20:03] LABS: Absolute Lymphocyte Count 0.44 X10^3/uL (0.83-4.51); Absolute Neutrophil Count 1.9 X10^3/uL (2.0-7.7); Basophil# 0.01 X10^3/uL; Basophil% 0.4 % (0-1); Eosinophil# 0.09 X10^3/uL; Eosinophils% 3.4 % (0-5); Hematocrit 35.4 % (40-54); Hemoglobin 11.4 g/dL (13.0-16.5); Lymphocyte # 0.44 X10^3/ul (4.0); Lymphocyte % 16.6 % (19-41); Mean Corp Hgb Conc 32.2 g/dL (32-36); Mean Corpuscular Volume 83.7 fL (80-94); Mean Platelet Vol. 8.6 fl (6.2-12.0); Monocyte# 0.17 X10^3/uL; Monocyte% 6.4 % (0-10); NRBC Flagged by Analyzer 0 % (0-5); Neutrophil # 1.93 X10^3/uL (2.7-7.7); Neutrophil % 72.8 % (47-70); POSITIVE DIFFERENTIAL YES; POSITIVE MORPHOLOGY YES; Platelet Count 160 K/mm3 (150-450); RBC Distribution Width CV 22.1 % (11.6-14.6); RBC Distribution Width SD 66.2 fl (35.1-43.9); Red Blood Count 4.23 M/mm3 (4.6-6.2); White Blood Count 2.7 K/mm3 (4.4-11.0)
[2020-01-09 20:05] VITALS: BP 114/9
[2020-01-09 20:08] VITALS: PULSE 92
[2020-01-09 20:09] LABS: Differential Indicated SCAN CRITERIA MET; International Normalized Ratio 1.5
[2020-01-09 20:11] LABS: Blood Gas Specimen Type VEN; VBG BASE EXCESS -8 mmol/L (-1.0-3.5); VBG Bicarbonate 18 mmol/L (22-26); VBG Oxygen Content 19 mmol/L (23-33); VBG PO2 30 mmHg (25-40); VBG SO2 57 % (50-70); VBG pCO2 31.3 mmHg (41-51); VBG pH 7.36 (7.32-7.42)
[2020-01-09 20:22] LABS: ALB/GLOB Ratio 0.3 RATIO (0.9-2.4); AST(SGOT) 50 U/L (15-37); Alanine Aminotransfer ALT/SGPT 21 U/L (16-61); Albumin, Serum 1.5 g/dL (3.2-5.0); Alkaline Phosphatase 184 U/L (45-117); Anion Gap 6 (5-15); BUN 6 mg/dL (7-18); BUN/Creat Ratio 11.6 RATIO (10-20); Calcium,Total 7.3 mg/dL (8.5-10.1); Chloride 99 mmol/L (98-107); Creatinine, Serum 0.52 mg/dL (0.70-1.30); EST Glomerular Filtration Rate 178 mL/min (>60); Est Glom Filt Rate - Afr Amer 215 mL/min (>60); Estimated Creatinine Clearance 173.53 ml/min; Globulin 5.6 g/dL (2.2-4.2); Glucose 113 mg/dL (74-106); Potassium 4.5 mmol/L (3.5-5.1); Protein, Total 7.1 g/dL (6.4-8.2); Sodium Level 126 mmol/L (136-145)
[2020-01-09 20:36] LABS: BNP,B-Type NATRIURETIC PEPTIDE 975.6 pg/mL (0-100)
[2020-01-09 20:41] LABS: Platelet Estimate ADEQUATE (ADEQ)
[2020-01-09 20:42] LABS: Anisocytosis 1+; Hypochromasia RARE
[2020-01-09] MEDS: Furosemide 100 MG/10 ML Vial 80 MG IV (21:09)
[2020-01-09 21:11] LABS: Color, Urine Yellow (Yellow); Glucose, Dipstick Normal (Normal); Ketone-Dipstick 5 mg/dl (Negative); Leukocyte Esterase-Dipstick 25 /ul (Negative); Mucous, Urine 0 SEEN /hpf (<or=2+); Nitrite-Dipstick Negative (Negative); Occult Blood-Urine 10 /ul (Negative); Protein-Dipstick 15 mg/dl (Negative); Red Blood Cells-Urine 0 SEEN /hpf (0-5); Specific Gravity, Urine 1.015 (1.002-1.030); Squamous Epithelial Cells - UA 0 SEEN /hpf (0-5); Urine Clarity Clear (Clear); Urine Urobilinogen 8 mg/dl (Normal); White Blood Cells 0 SEEN /hpf (0-5)
[2020-01-09 21:14] VITALS: BP 126/72; PULSE 94; RESP 27; O2SAT 99
[2020-01-09 21:16] LABS: Urine Bilirubin Dipstick 1 mg/dL (Negative)
[2020-01-09 21:24] LABS: Bacteria RARE /hpf (None Seen)
--- NOTE | 2020-01-09 21:58 | HP.PCM_ITS ---
History of Present Illness Date of Admission: 01/09/20 Chief Complaint: shortness of breath, general weakness The patient is a 49 year old M with an extensive past medical history as outlined which include paroxysmal supraventricular tachycardia, anasarca and chronic alcohol abuse. He was admitted through the ED on 12/30/2019 with a complaint of generalized weakness and shortness of breath. He has an extensive history of alcohol abuse and drinks about 12-15 beers a day as well as smoking about 2 to 2.5 packs/day. He was recently admitted at [facility] for acute on chronic heart failure and discharged to an extended care facility. He subsequently signed out AGAINST MEDICAL ADVICE from this clinic care facility because he said they were not doing anything for him. He went home and states has not been taking care of himself well and has just been drinking. He started getting short of breath and progressively got more short of breath with associated wheezing and said he had been sitting in his chair for 4 days with a beer in the fridge within reach of the chair. He finally decided to come into the ED today. He denied any chest pain, fever or chills, palpitations, dizziness, nausea vomiting or diarrhea. He did admit to a cough but that he had been coughing for about 2 years and is occasionally productive of greenish to whitish sputum. On admission, temperature was 98 Fahrenheit with blood pressure 129/73 and pulse rate of 101 as well as respiratory rate of 28. He was saturating at 97% on 4 L of oxygen at time I saw him. Chemistry showed sodium of 126 and this is chronically low. Creatinine was 0.52 with calcium of 7.3 and total bilirubin of 3.8. AST was 50 and ALT was 21. Initial troponin was negative and BNP was 975.6. CBC showed hemoglobin of 11.4 with WBC of 2.7 and platelets of 160. EKG done on admission showed paroxysmal supraventricular tachycardia heart rate up in the 170s which was treated with 20 mg of IV Cardizem in the ED. Heart rate was down in the 90s at time of review. Chest x- ray done showed acute and chronic congestive heart failure with cardiomegaly and pulmonary venous congestion with interstitial edema and bilateral pleural effusions. Of note, patient was also noted to be lethargic though he could answer questions. He has been admitted to be managed for acute on chronic heart failure, as well as acute metabolic encephalopathy likely due to liver disease and alcohol abuse and supraventricular tachycardia. [] Past Medical History Past Medical History (Chronic Problems): Chronic Problems Alcohol abuse (Chronic) Lymphedema (Chronic) Diabetes (Chronic) diet controlled COPD (chronic obstructive pulmonary disease) (Chronic) Arthritis (Chronic) Anasarca (Chronic) secondary to alcohol abuse, no CHF Alcoholic liver damage (Chronic) suspected Acute exacerbation of congestive heart failure (Chronic) COPD exacerbation (Chronic) Allergies shellfish derived Allergy (Verified 01/09/20 19:39) Anaphylaxis venom-honey bee [bee venom (honey bee)] Allergy (Verified 01/09/20 19:39) Swelling codeine Adverse Reaction (Verified 01/09/20 19:39) Nausea Home Medications: Ambulatory Orders Medication Instructions Recorded Albuterol Inhaler [Ventolin Hfa] 1 - 2 puff INHALATION Q4H PRN PRN 04/23/14 Fluticasone/Salmeterol [Advair 1 puff INHALATION BID 04/23/14 250/50 Mcg Diskus] Diltiazem CD [Cardizem CD] 240 mg PO DAILY #30 cap 12/27/19 Emollient Combination No.72 1 applic TOPICAL 4X/DAY PRN PRN 12/28/19 [Eucerin Intensive Repair] lotion Surgical History: noncontributory Lives: Spouse/ Significant Other Smoking Status: Current every day smoker Alcohol: Heavy Drugs: None - *Family History Maternal History Items: No pertinent history Review of Systems Constitutional: Reports: Malaise, Weakness, Fatigue. Denies: Anorexia, Chills, Fever Eyes: Denies: Blurred vision HEENT: Denies: Head Aches, Sinus Congestion, Sinus Drainage Cardiovascular: Reports: Edema. Denies: Chest Pain, Chest Pressure, Chest Tightness, Heaviness, Light Headedness, Palpitations Respiratory: Reports: Shortness of Breath, Shortness of breath upon exertion. Denies: Cough, Shortness of breath at rest, Sputum production Gastrointestinal: Denies: Abdominal Pain, Nausea, Vomiting Genitourinary: Denies: Dysuria Musculoskeletal: Denies: Joint Pain, Joint Tenderness Skin: Denies: Rash, Wounds Neurological: Reports: Confusion. Denies: Focal weakness, Numbness, Tingling Psychiatric: Denies: Anxiety, Depression, Homicidal Ideations, Suicidal Ideations Hematologic/ Lymphatic: Denies: Easy Bruising, Easy Bleeding VTE Information - Inpt Only VTE Present on Admission: No VTE Pharm Prophylaxis ordered?: Yes Patient Problems: Active and Suspected Problems Paroxysmal supraventricular tachycardia by electrocardiogram (ECG) (Acute) Coagulopathy (Acute) Hyponatremia (Acute) Acute alcoholic intoxication in alcoholism (blood level 0.08-0.29) (Acute) - Physical Exam Vitals/I&O's: Vital Signs Temp Pulse Resp BP Pulse Ox 98.4 F 94 27 H 126/72 H 99 01/09/20 19:36 01/09/20 21:14 01/09/20 21:14 01/09/20 21:14 01/09/20 21:14 Oxygen Flow Rate (L/min) 2 Oxygen Delivery Method Nasal Cannula Weight: 279 lb 12.266 oz Body Mass Index (BMI) 40.1 General: Alert, Cooperative, No apparent distress, Lethargic HEENT: Atraumatic, PERRLA, EOMI, Normocephalic, - - jaundiced sclera Oral: Dry Mucosa Neck: Supple, No JVD, Negative Carotid Bruits Lungs: - - decreased breath sounds bibasally, with audible wheezing and crackles in lung bases. on 4L of oxygen by nasal canula Cardiovascular: Regular rate, Regular Rhythm, Normal S1, Normal S2, No murmurs Abdomen: Bowel Sounds Present, Soft, Non Tender, No Hepato-splenomegaly, Distended, - - has positive shifting dullness. Extremities: No clubbing, No cyanosis, Edema - 2-3+ nonpitting pedal edema; has lymphedema of both LEs Skin: No rashes, No breakdown, - - has some petechiae on skin Musculoskeletal: No Tenderness to Palpation of Joints or Extremities Lymphatic: No Cervical, Supraclavicular, or Inguinal Adenopathy Neurological: Cranial nerves II-XII grossly intact, Motor Exam 5/5 strength throughout, - - patient lethargic, Laboratory Results 01/09/20 19:50: WBC 2.7 L, RBC 4.23 L, Hgb 11.4 L, Hct 35.4 L, MCV 83.7, MCH 27.0, MCHC 32.2, RDW Std Deviation 66.2 H, RDW Coeff of Chacha 22.1 H, Plt Count 160, MPV 8.6, Immature Gran % (Auto) 0.400, Neut % (Auto) 72.8 H, Lymph % (Auto) 16.6 L, Nolan % (Auto) 6.4, Eos % (Auto) 3.4, Baso % (Auto) 0.4, Absolute Neuts (auto) 1.9 L, Absolute Lymphs (auto) 0.44 L, Nucleated RBC % 0, Differential Comment , Diff Path Review May foll, Platelet Estimate ADEQUATE, Hypochromasia RARE, Anisocytosis 1+ 01/09/20 19:50: PT 18.0 H, INR 1.5 01/09/20 19:50: Sodium 126 L, Potassium 4.5, Chloride 99, Carbon Dioxide 21.0, Anion Gap 6, BUN 6 L, Creatinine 0.52 L, Estim Creat Clear Calc 173.53, Est GFR (MDRD) Af Amer 215, Est GFR (MDRD) Non-Af 178, BUN/Creatinine Ratio 11.6, Glucose 113 H, Calcium 7.3 L, Total Bilirubin 3.80 H, AST 50 H, ALT 21, Alkaline Phosphatase 184 H, Troponin I < 0.015, Total Protein 7.1, Albumin 1.5 L, Globulin 5.6 H, Albumin/Globulin Ratio 0.3 L 01/09/20 19:50: Ethyl Alcohol 152.0 01/09/20 19:50: B-Natriuretic Peptide 975.6 H 01/09/20 20:05: Specimen Type TONE, VBG pH 7.36, VBG pO2 30, VBG HCO3 18 L, VBG O2 Sat (Calc) 57, VBG O2 Content 19 L, VBG Base Excess -8 L, POC Mix VBG pCO2 Pt Tmp 31.3 L 01/09/20 20:08: Ammonia 29.0 01/09/20 21:00: Urine Color Yellow, Urine Clarity Clear, Urine pH 6.0, Ur Specific Oliver 1.015, Urine Protein 15 H, Urine Glucose (UA) Normal, Urine Ketones 5 H, Urine Occult Blood 10 H, Urine Nitrite Negative, Urine Bilirubin 1 H, Urine Urobilinogen 8 H, Ur Leukocyte Esterase 25 H, Urine RBC 0 SEEN, Urine WBC 0 SEEN, Ur Squamous Epith Cells 0 SEEN, Urine Bacteria RARE, Urine Mucus 0 SEEN Diagnostic Data Chest X-Ray 01/09/20 19:55 IMPRESSION: Acute and/or chronic congestive heart failure with cardiomegaly and pulmonary venous congestion, interstitial edema and bilateral pleural effusions. Electronically Signed: Paige Villa MD at 20:12 EDT , Service support , Assessment/Plan All Active Problems CHF (congestive heart failure) (Acute) SVT (supraventricular tachycardia) (Acute) Pancytopenia (Acute) Paroxysmal supraventricular tachycardia by electrocardiogram (ECG) (Acute) Coagulopathy (Acute) Hyponatremia (Acute) Acute alcoholic intoxication in alcoholism (blood level 0.08-0.29) (Acute) 49 y/o admitted with a complaint of shortness of breath and weakness 1. Acute on chronic HFpEF * BNP is 975; CXR shows evidence of pulmonary congestion, with patient requiring up to 4L of oxygen by nasal canula * admit to pCU with telemetry * give IV lasix 40mg bid; fluid restriction to 1500cc daily * daily intake and output chart * 2D echo(12/25/2019): LV size and function normal, with EF of 60%, and no evidence of diastolic dysfunction; RVSP is 29mmhg, with mitral valve insufficiency 2.Acute hypoxic respiratory insufficiency * requiring 4L of oxygen, and patient is also tachypneic, breathing at 28 breatths/min * CXR shows pulmonary congestion, no evidence of pneumonia * being diuresed * give breathing treatment with bronchodilators; titrate oxygen to maintain sats>90% * 3. paroxysmal SVT * Rate was up in the 170s per EKG on admission and this went down to the 90s and low 100s with administration of IV Cardizem push. * On p.o. Cardizem to 40 mg daily. * IV metoprolol as needed * 4. SIRS criiteria * patient meets SIRS criteria with tachypnea and tachycardia and leucopenia. tachypnea can be explained by CHV exacerbation, tachycardia by his underlying PSVT adn leucopenia is chronic and due to alcohol abuse * he has no focus of infection also; i therefore do not think this sepsis and will not start IV antibiotics now. * will continue monitoring for now. * 5. Hyponatremia: * chronic. Sodium is 126 and sodium is chronically low. * This is likely due to beer potomania, though heart failure and anasarca may also be playing a role. * will check serum osmolality and monitor 6. History of alcoholic liver disease: * Total bilirubin is 3.8 and it has ranged between 3.5 and 2.7 previously. * Patient is visibly jaundiced. * Will need follow-up with GI on outpatient basis. 7. Leukopenia and anemia: Globin is 11.4 and WBC is 2.7. He has chronic leukopenia and anemia. Likely due to alcoholic liver disease. Will monitor. 8. Chronic alcohol dependence: Drinks about 12-15 beers a day. Last drink was yesterday. Will put on alcohol withdrawal protocol and monitor CIWA. DVT prophylaxis: SCDs CODE STATUS: Full code * Patient counseled extensively about different types of CODE STATUS including full code, DNR CCA and DNR CCA. Patient elects to be full code. * Total [id number] time 17 minutes. 4:37am I was notified that patient was getting more short of breath and breathing at 32 bpm. He also developed a fever of 100.4 Fahrenheit and is more tachycardic. At this point, because of patient's chronic alcoholism and is inability to care for himself, I am concerned about sepsis due to aspiration pneumonia. Patient had a negative covid test on December 27, 2019. However he was sent to a custodial from where he signed out AMA and went home. I will order COVID test and CT of the chest for any evidence of pneumonia. Chest x-ray of note showed pulmonary congestion but no evidence of pneumonia. Will get sputum cultures and blood cultures and urine for strep and Legionella as well as check lactic acid. Will start patient on BiPAP to reduce his work of breathing. Get stat ABG and start patient on IV vancomycin and Zosyn. Inpatient E&M: 19876 Init Hosp L3 Procedures: 73063 Advncd Care Plan 30 Min
[2020-01-09 22:27] VITALS: BP 129/73; PULSE 101; RESP 28; TEMP 36.6; O2SAT 97
[2020-01-09 23:30] VITALS: BP 139/63; PULSE 108; RESP 24; TEMP 36.6; O2SAT 100
[2020-01-10] VITALS (28 sets, daily range): BP systolic 106–139; BP diastolic 48–70; PULSE 29–115; RESP 12–32; TEMP 36.6–38.6; O2SAT 86–100; BMI 38.0; BMI 40.0
[2020-01-10 00:57] LABS: Amphetamine Urine VISTA NEGATIVE (<1000 ng/mL); Barbiturate Urine VISTA NEGATIVE (< 200 ng/mL); Benzodiazepine Urine VISTA NEGATIVE (< 200 ng/mL); Cocaine Urine VISTA NEGATIVE (< 300 ng/mL); Ecstacy Urine VISTA NEGATIVE (< 500 ng/mL); Methadone Urine VISTA NEGATIVE (< 300 ng/mL); PCP Urine VISTA NEGATIVE (< 25 ng/mL); THC Urine VISTA NEGATIVE (< 50 ng/mL); Vista UDS pH Range 6
[2020-01-10 01:24] LABS: Magnesium 1.7 mg/dL (1.6-2.6)
[2020-01-10] MEDS: LORazepam 1 MG Tablet 2 MG PO ×2 (01:33→05:04)
[2020-01-10] MEDS: Nystatin Powder 15gm Bottle 1 APPLIC TOPICAL ×4 (01:56→21:05)
[2020-01-10] MEDS: traZODone 100 MG Tablet PO (01:56)
[2020-01-10 03:55] LABS: Absolute Lymphocyte Count 0.39 X10^3/uL (0.83-4.51); Absolute Neutrophil Count 1.2 X10^3/uL (2.0-7.7); Eosinophils% 5.3 % (0-5); Hematocrit 29.2 % (40-54); Hemoglobin 9.4 g/dL (13.0-16.5); Lymphocyte # 0.39 X10^3/ul (4.0); Lymphocyte % 20.5 % (19-41); Mean Corp Hgb Conc 32.2 g/dL (32-36); Mean Corpuscular Hgb 27.1 pg (27.0-32.0); Mean Corpuscular Volume 84.1 fL (80-94); Mean Platelet Vol. 9.1 fl (6.2-12.0); Monocyte# 0.19 X10^3/uL; NRBC Flagged by Analyzer 0 % (0-5); Neutrophil # 1.21 X10^3/uL (2.7-7.7); Neutrophil % 63.7 % (47-70); POSITIVE DIFFERENTIAL YES; POSITIVE MORPHOLOGY YES; Platelet Count 140 K/mm3 (150-450); RBC Distribution Width CV 21.9 % (11.6-14.6); RBC Distribution Width SD 66.9 fl (35.1-43.9); Red Blood Count 3.47 M/mm3 (4.6-6.2); White Blood Count 1.9 K/mm3 (4.4-11.0)
[2020-01-10 04:01] LABS: Differential Indicated SCAN CRITERIA MET
[2020-01-10 04:13] LABS: ALB/GLOB Ratio 0.3 RATIO (0.9-2.4); AST(SGOT) 43 U/L (15-37); Alanine Aminotransfer ALT/SGPT 20 U/L (16-61); Albumin, Serum 1.3 g/dL (3.2-5.0); Alkaline Phosphatase 153 U/L (45-117); Anion Gap 5 (5-15); BUN 6 mg/dL (7-18); BUN/Creat Ratio 13.1 RATIO (10-20); Calcium,Total 7.1 mg/dL (8.5-10.1); Chloride 102 mmol/L (98-107); Creatinine, Serum 0.46 mg/dL (0.70-1.30); EST Glomerular Filtration Rate 206 mL/min (>60); Est Glom Filt Rate - Afr Amer 249 mL/min (>60); Globulin 4.8 g/dL (2.2-4.2); Glucose 106 mg/dL (74-106); Potassium 4.1 mmol/L (3.5-5.1); Protein, Total 6.1 g/dL (6.4-8.2); Sodium Level 129 mmol/L (136-145)
[2020-01-10 04:27] LABS: Differential Comment SCANNED; Hypochromasia RARE
--- NOTE | 2020-01-10 04:35 | CT_ITS ---
STUDY: CT CHEST WITH CONTRAST REASON FOR EXAM: Male, 49 years old. Shortness of breath and weakness. RADIATION DOSAGE (If Supplied By Facility): CTDIvol = ( 15.34 ) mGy, DLP = ( 1960.45 ) mGycm TECHNIQUE: Transaxial imaging was performed following intravenous administration of IV 100mL Isovue-300. Individualized dose optimization techniques were used for this CT. COMPARISON: None. FINDINGS: Heart and great vessels: Moderate four-chamber cardiomegaly. No dissection or aneurysm of the thoracic aorta. Coronary artery atherosclerosis. Trace pericardial fluid. Lungs, pleura: Small layering bilateral pleural effusions. Mild diffuse interstitial prominence throughout both lungs. No consolidation, pneumothorax, or pleural effusion. Mediastinum: Mild mediastinal adenopathy. Osseous:No fracture or acute osseous abnormality. Chest wall: Mild bilateral axillary lymphadenopathy. Upper abdomen: Hepatosplenomegaly, nodular liver, ascites, anasarca in the abdominal wall partially visible. CT/Chest WITH Contrast IMPRESSION: Congestive heart failure with cardiomegaly, interstitial pulmonary edema, and small pleural effusions. Coronary artery atherosclerosis. Hepatosplenomegaly with probable cirrhosis, ascites, anasarca in the abdominal wall partially visible. Mild mediastinal and bilateral hilar adenopathy. Electronically Signed: Erasmo Nagy, at 7:46 EDT Tel , Service support ,
[2020-01-10] MEDS: Acetaminophen 325 MG Tablet 650 MG PO (05:34)
[2020-01-10 05:38] LABS: Lactic Acid 1.9 mmol/L (0.4-1.9)
[2020-01-10 05:40] LABS: Allen Test Positive; Base Excess -5 mmol/L (-2 to +2); Bicarbonate 19.8 mmol/L (22-26); Blood Gas Specimen Type ART; FI02 3; O2 Delivery Device Cannula; PO2 76 mmHG (75-100); SITE R Radial; SO2 95 % (95-99); Total Carbon Dioxide 21 mmol/L; pCO2 31.2 mmHg (35-45); pH 7.41 (7.35-7.45)
--- NOTE | 2020-01-10 06:07 | PCM.RX.CS ---
Consult Pharmacy has been consulted to manage selected antiobiotic: Vancomycin Type of Consult: New start Suspected Infection: Sepsis Prior Doses of Antibiotics Received/Current Regimen: Medications Loading dose x1 Vancomycin HCl 2,000 mg/ (Sodium Chloride) 540 mls @ 250 mls/hr IV X1 ONE Stop: 01/10/20 10:09 Labs: Sodium 129 mmol/L (136-145) L 01/10/20 03:40 Potassium 4.1 mmol/L (3.5-5.1) 01/10/20 03:40 Chloride 102 mmol/L (98-107) 01/10/20 03:40 Carbon Dioxide 22.0 mmol/L (21.0-32.0) 01/10/20 03:40 Anion Gap 5 (5-15) 01/10/20 03:40 BUN 6 mg/dL (7-18) L 01/10/20 03:40 Creatinine 0.46 mg/dL (0.70-1.30) L 01/10/20 03:40 Est GFR (MDRD) Af Amer 249 mL/min (>60) 01/10/20 03:40 Est GFR (MDRD) Non-Af 206 mL/min (>60) 01/10/20 03:40 BUN/Creatinine Ratio 13.1 RATIO (-20) 01/10/20 03:40 Glucose 106 mg/dL (74-106) 01/10/20 03:40 Microbiology: Microbiology 01/10/20 05:35 Urine Catheter - Burns Legionella Antigen - Final 01/10/20 05:35 Urine Catheter - Burns Streptococcus pneumoniae Antigen (M - Final Weight used for dosin kg Estimated Creatinine Clearance: 196 ml/min Goal Trough: 15-20 mcg/mL Pharmacy Plan for Drug Dosing: Pharmacy Service will continue to monitor and adjust dosing as required.
--- NOTE | 2020-01-10 08:05 | NURSING ---
Unable to complete CIWA assessment d/t decreased LOC- pt only arousable by sternal rub.
[2020-01-10] MEDS: Furosemide 40 MG/4 ML Vial IV ×2 (09:33→17:09)
--- NOTE | 2020-01-10 10:41 | CASEMGMT ---
ARSENIO CM Readmission Note Previous admission: 12/24-12/28/19 Diagnosis: Anasarca, SVT, ETOH abuse DC Disposition: [facility]. Pt left facility AMA to home. Current Admission Presentation: shortness of breath, general weakness Diagnosis: Acute on chronic heart failure, paroxymal SVT, hyponatremia, ETOH abuse -Has been very debilitated at home, drinking beer. EMS called. Patient was in basement and needed stair chair assist to get to main floor. Extreme swelling to scrotom, feet and legs. Dyspneic- no home oxygen use. SW referral: states she cannot care for patient at home. Pt not able to care for self. Continued ETOH abuse. Jerry GABRIEL RN AC
[2020-01-10] MEDS: Ipratropium/Albuterol Sulfate 3 ML AMPUL.NEB INHALATION ×4 (10:52→23:25)
--- NOTE | 2020-01-10 13:15 | CASEMGMT ---
SW received a message to call patient's . SW called patient's , Yara. Introduced self and role at [facility]. She said she and patient are . They live in the same home with their children. Patient lives in the basement and stays down there and drinks beer. She said the EMT's that came to the house told her they will not get him out of the basement again. She said she went to the basement and all of his clothes were covered in feces and urine and it was a mess. 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 She said she is not sure what to do and needs help with the situation. SW told her that once he is more awake SW and physician plan on having a discussion with patient. She said last time he went to the long term he had their daughter [facility]. [facility] then [facility] came home and went to basement and drank. She said that will not happen again and she is going to lock up the keys to his car. SIOBHAN told her SW will follow and work with patient. She thanked SIOBHAN for calling her. Reyna HAWK MSW
[2020-01-10 14:05] LABS: Pathologist Review Reviewed
[2020-01-10 14:07] LABS: Pathologist Review Reviewed
[2020-01-10] MEDS: dilTIAZem CD 240 MG Capsule PO (17:08)
[2020-01-10] MEDS: Thiamine Hydrochloride 100 MG Tablet PO (17:08)
--- NOTE | 2020-01-10 17:24 | PN_ITS ---
Patient Problems: Active and Suspected Problems Paroxysmal supraventricular tachycardia by electrocardiogram (ECG) (Acute) Coagulopathy (Acute) Hyponatremia (Acute) Acute alcoholic intoxication in alcoholism (blood level 0.08-0.29) (Acute) Subjective: Patient was seen and examined earlier this morning, he was not alert and he was on BiPAP to maintain his respiratory status, I feel this is probably due to administration of Ativan I have stopped his Ativan. This is a similar scenario to what happened to the patient the last time he was admitted recently-he received Ativan and was unresponsive for time. I think it is better to give the patient alcohol as needed rather than risk oversedation from benzodiazepines. Currently on nasal cannula O2 this afternoon. - Physical Exam Vitals/I&O's: Vital Signs Temp Pulse Resp BP Pulse Ox 99.4 F H 107 H 25 H 126/64 H 91 01/10/20 17:00 01/10/20 17:00 01/10/20 17:00 01/10/20 17:00 01/10/20 17:00 Oxygen Flow Rate (L/min) 2 Oxygen Delivery Method Nasal Cannula Weight: 120.1 kg Body Mass Index (BMI) 38.0 Intake and Output for Last 24 Hours 01/08/20 01/09/20 01/10/20 23:59 23:59 23:59 Intake Total 890 / 890 Output Total 2600 / 2600 3975 / 3975 Balance -2600 / -2600 -3085 / -3085 General: Alert, Oriented x3, Cooperative, No apparent distress, Well developed HEENT: Atraumatic, PERRLA, EOMI, Normocephalic Oral: Moist Mucosa Neck: Supple, No JVD, Negative Carotid Bruits, Trachea Midline, Thyroid Normal Size and Texture Lungs: Diminished, Rhonchi - Expiratory rhonchi are noted over both lungs Cardiovascular: Regular rate, Regular Rhythm, Normal S1, Normal S2, No murmurs, PMI Normal, No rub noted, No Gallop Abdomen: Bowel Sounds Present, Soft, Non Tender, Obese Extremities: Capillary Refill Less than 3 Seconds, Edema - Patient has diffuse edema over the upper legs and trunk area, - - Patient has severe lymphedematous changes to both legs Skin: No rashes, No breakdown Musculoskeletal: No Tenderness to Palpation of Joints or Extremities Neurological: Cranial nerves II-XII grossly intact, Neuro grossly intact, Sensory exam intact to light touch and pain, Coordination normal Psych/Mental Status: Normal Affect, Appropriate, Alert and oriented to time, place, person, mood and affect Microbiology Past 72 Hours 01/10/20 04:50 Sputum, Expectorated/Coughed Gram Stain - Final 01/10/20 05:35 Urine Catheter - Burns Legionella Antigen - Final 01/10/20 05:35 Urine Catheter - Burns Streptococcus pneumoniae Antigen (M - Final Laboratory Results 01/09/20 00:44: Urine Opiates Screen NEGATIVE, Urine Methadone Screen NEGATIVE, Ur Barbiturates Screen NEGATIVE, Ur Phencyclidine Scrn NEGATIVE, Ur Amphetamines Screen NEGATIVE, U Methamphetamin-MDMA NEGATIVE, U Benzodiazepines Scrn NEGATIVE, Urine Cocaine Screen NEGATIVE, U Cannabinoids Screen NEGATIVE, Ur Drug Screen Comment 01/09/20 19:50: WBC 2.7 L, RBC 4.23 L, Hgb 11.4 L, Hct 35.4 L, MCV 83.7, MCH 27.0, MCHC 32.2, RDW Std Deviation 66.2 H, RDW Coeff of Chacha 22.1 H, Plt Count 160, MPV 8.6, Immature Gran % (Auto) 0.400, Neut % (Auto) 72.8 H, Lymph % (Auto) 16.6 L, [place] % (Auto) 6.4, Eos % (Auto) 3.4, Baso % (Auto) 0.4, Absolute Neuts (auto) 1.9 L, Absolute Lymphs (auto) 0.44 L, Nucleated RBC % 0, Differential Comment , Diff Path Review Reviewed, Platelet Estimate ADEQUATE, Hypochromasia RARE, Anisocytosis 1+ 01/09/20 19:50: PT 18.0 H, INR 1.5 01/09/20 19:50: Sodium 126 L, Potassium 4.5, Chloride 99, Carbon Dioxide 21.0, Anion Gap 6, BUN 6 L, Creatinine 0.52 L, Estim Creat Clear Calc 173.53, Est GFR (MDRD) Af Amer 215, Est GFR (MDRD) Non-Af 178, BUN/Creatinine Ratio 11.6, Glucose 113 H, Calcium 7.3 L, Total Bilirubin 3.80 H, AST 50 H, ALT 21, Alkaline Phosphatase 184 H, Troponin I < 0.015, Total Protein 7.1, Albumin 1.5 L, Globuli n 5.6 H, Albumin/Globulin Ratio 0.3 L 01/09/20 19:50: Ethyl Alcohol 152.0 01/09/20 19:50: B-Natriuretic Peptide 975.6 H 01/09/20 20:05: Specimen Type TONE, VBG pH 7.36, VBG pO2 30, VBG HCO3 18 L, VBG O2 Sat (Calc) 57, VBG O2 Content 19 L, VBG Base Excess -8 L, POC Mix VBG pCO2 Pt Tmp 31.3 L 01/09/20 20:08: Ammonia 29.0 01/09/20 21:00: Urine Color Yellow, Urine Clarity Clear, Urine pH 6.0, Ur Specific [place] 1.015, Urine Protein 15 H, Urine Glucose (UA) Normal, Urine Ketones 5 H, Urine Occult Blood 10 H, Urine Nitrite Negative, Urine Bilirubin 1 H, Urine Urobilinogen 8 H, Ur Leukocyte Esterase 25 H, Urine RBC 0 SEEN, Urine WBC 0 SEEN, Ur Squamous Epith Cells 0 SEEN, Urine Bacteria RARE, Urine Mucus 0 SEEN 01/10/20 01:00: Magnesium 1.7, Troponin I < 0.015 01/10/20 03:40: WBC 1.9 L, RBC 3.47 L, Hgb 9.4 L, Hct 29.2 L, MCV 84.1, MCH 27.1, MCHC 32.2, RDW Std Deviation 66.9 H, RDW Coeff of Chacha 21.9 H, Plt Count 140 L, MPV 9.1, Immature Gran % (Auto) 0.500, Neut % (Auto) 63.7, Lymph % (Auto) 20.5, [place] % (Auto) 10.0, Eos % (Auto) 5.3 H, Baso % (Auto) 0.0, Absolute Neuts (auto) 1.2 L, Absolute Lymphs (auto) 0.39 L, Nucleated RBC % 0, Differential Comment SCANNED, Diff Path Review Reviewed, Hypochromasia RARE 01/10/20 03:40: Sodium 129 L, Potassium 4.1, Chloride 102, Carbon Dioxide 22.0, Anion Gap 5, BUN 6 L, Creatinine 0.46 L, Estim Creat Clear Calc 196.17, Est GFR (MDRD) Af Amer 249, Est GFR (MDRD) Non-Af 206, BUN/Creatinine Ratio 13.1, Glucose 106, Calcium 7.1 L, Total Bilirubin 3.50 H, AST 43 H, ALT 20, Alkaline Phosphatase 153 H, Troponin I < 0.015, Total Protein 6.1 L, Albumin 1.3 L, Globulin 4.8 H, Albumin/Globulin Ratio 0.3 L 01/10/20 05:06: Lactic Acid 1.9 01/10/20 05:15: COVID-19 ([facility]) Not Detected 01/10/20 05:35: Specimen Type ART, Sample Site R Radial, pH 7.41, Bicarbonate Actual 19.8 L, Total CO2 21, Base Excess -5 L, O2 Saturation 95, O2 % 3, ABG pCO2 31.2 L, ABG pO2 76, Bob Test Positive, O2 Delivery Device Cannula 01/10/20 06:55: Troponin I < 0.015 Current Medications Acetaminophen (Tylenol) 650 mg PO Q6H PRN PRN PRN Reason: TEMP > 100 Last Admin: 01/10/20 05:34 Dose: 650 mg Documented by: Albuterol/Ipratropium (Duoneb) 3 ml INHALATION Q4H.RT [facility] Last Admin: 01/10/20 15:29 Dose: 3 ml Documented by: Budesonide (Pulmicort Aerosol) 0.5 mg INHALATION BID.RT [facility] Last Admin: 01/10/20 08:37 Dose: Not Given Documented by: Dicyclomine HCl (Bentyl) 20 mg PO Q6H PRN PRN PRN Reason: abdominal discomfort Diltiazem HCl (Cardizem Cd) 240 mg PO DAILY [facility] Last Admin: 01/10/20 17:08 Dose: 240 mg Documented by: Emollient Ointment (Eucerin Intensive Repair) 1 applic TOPICAL 4X/DAY PRN PRN; Protocol PRN Reason: DRY SKIN Last Admin: 01/10/20 01:57 Dose: 1 applicatio Documented by: Folic Acid (Folic Acid) 1 mg PO DAILY@0800 [facility] Stop: 01/12/20 08:01 Last Admin: 01/10/20 08:07 Dose: Not Given Documented by: Furosemide (Lasix) 40 mg IV BID@1000,1800 [facility] Last Admin: 01/10/20 17:09 Dose: 40 mg Documented by: Piperacillin Sod/Tazobactam (Sod 3.375 gm/ Sodium Chloride) 50 mls @ 12.5 mls/hr IV Q8 [facility] Last Admin: 01/10/20 13:25 Dose: 12.5 mls/hr Documented by: Vancomycin IV Pharmacy to Dose (1 ea/ Sodium Chloride) 500 mls @ 250 mls/hr IV X1 PRN; Protocol PRN Reason: Rx to Dose Vancomycin HCl 1,500 mg/ (Sodium Chloride) 530 mls @ 250 mls/hr IV Q8H [facility] Last Admin: 01/10/20 15:38 Dose: 250 mls/hr Documented by: Multivitamins/Minerals (Multivitamin With Minerals (Bkc)) [facility] Last Admin: 01/10/20 08:07 Dose: Not Given Documented by: Nutritional Formula (Eusebio - Imperial Flavor) [facility] Last Admin: 01/10/20 17:09 Dose: Not Given Documented by: Nystatin (Mycostatin Powder) 1 applic TOPICAL TID [facility]; Protocol Last Admin: 01/10/20 13:25 Dose: 1 applicatio Documented by: Ondansetron HCl (Zofran) 4 mg IV Q8H PRN PRN PRN Reason: NAUSEA/VOMITING Sodium Chloride () 10 - 40 ml IV UD PRN PRN Reason: SALINE FLUSH Thiamine HCl (Vitamin B1) [facility] Stop: 01/12/20 17:01 Last Admin: 01/10/20 17:08 Dose: 100 mg Documented by: Medical Necessity - Tobacco Use Smoking Status: Current every day smoker Assessment/Plan All Active Problems CHF (congestive heart failure) (Acute) SVT (supraventricular tachycardia) (Acute) Pancytopenia (Acute) Paroxysmal supraventricular tachycardia by electrocardiogram (ECG) (Acute) Coagulopathy (Acute) Hyponatremia (Acute) Acute alcoholic intoxication in alcoholism (blood level 0.08-0.29) (Acute) #1 acute on chronic diastolic congestive heart failure-continue IV Lasix and fluid restriction #2 febrile illness-I suspect the patient may have underlying pneumonia, he remains on Zosyn and vancomycin at this time, repeat chest x-ray tomorrow morning #3 paroxysmal SVT-I talked with cardiology today and they stated that if the patient had frequent SVT episodes he would have to be transferred to another facility that has an EP doctor. We will continue patient's Cardizem for now #4 hyponatremia-probably secondary to alcohol abuse, monitor BMP #5 alcoholic liver disease #6 chronic alcoholism #7 bicytopenia-likely due to alcoholic liver disease I feel that the best course of action with this patient is to give him small amounts of alcohol rather than use benzodiazepines because he does not tolerate these medicines. Inpatient E&M: 27626 Subs Hosp L2
[2020-01-10] MEDS: oxyCODONE 5 MG Tablet PO (18:32)
[2020-01-10] MEDS: Budesonide Respules 0.5 MG/2 ML AMPUL.NEB. INHALATION (18:35)
[2020-01-11] VITALS (21 sets, daily range): BP systolic 107–130; BP diastolic 60–73; PULSE 75–206; RESP 16–28; TEMP 36.4–37.2; O2SAT 94–99
--- NOTE | 2020-01-11 01:22 | EKG12_ITS ---
Test Reason : SOB Blood Pressure : / mmHG Vent. Rate : 174 BPM Atrial Rate : 182 BPM P-R Int : 000 ms QRS Dur : 092 ms QT Int : 282 ms P-R-T Axes : 000 086 096 degrees QTc Int : 479 ms Supraventricular tachycardia Nonspecific ST and T wave abnormality Abnormal ECG Confirmed by NORBERTO HANKINS, ROYAL ([id number]), editor at large DIVYA LOMAX ([id number]) on 01/15/2020 8:50:15 AM Referred By: JASMYN Confirmed By:ROYAL THORNTON MD
[2020-01-11] MEDS: dilTIAZem 25 MG/5 ML Vial 20 MG IV BOLUS (01:24)
[2020-01-11] MEDS: 0.9% Saline Lock 10 ML Syringe IV ×3 (01:24→17:30)
[2020-01-11] MEDS: oxyCODONE 5 MG Tablet PO ×4 (02:22→21:58)
[2020-01-11] MEDS: Nystatin Powder 15gm Bottle 1 APPLIC TOPICAL ×3 (05:17→21:52)
--- NOTE | 2020-01-11 05:18 | RAD_ITS ---
STUDY: X-RAY CHEST REASON FOR EXAM: Male, 49 years old. Pneumonia, CHF TECHNIQUE: Single AP portable view of the chest. COMPARISON: Comparison is made with prior examination dated 01/09/2020. FINDINGS: EKG electrodes are seen. There is evidence of vascular congestion and CHF. Blunting of both costophrenic angles. There is moderate cardiac enlargement. Normal mediastinum and santi. Normal visualized pulmonary arteries. Normal visualized aortic arch and descending thoracic aorta. There are diffuse degenerative changes of the visualized thoracic spine. Normal visualized ribs, clavicles, and shoulders. There is no demonstrated abnormality of the visualized soft tissue structures of the upper abdomen. RAD/Chest 1 View (Portable) IMPRESSION: Cardiomegaly and CHF. Electronically Signed: Jose Davila, at 10:07 EDT , Service support ,
[2020-01-11 06:17] LABS: Absolute Lymphocyte Count 0.44 X10^3/uL (0.83-4.51); Absolute Neutrophil Count 0.9 X10^3/uL (2.0-7.7); Basophil# 0.01 X10^3/uL; Basophil% 0.6 % (0-1); Eosinophil# 0.15 X10^3/uL; Eosinophils% 8.7 % (0-5); Hematocrit 29.5 % (40-54); Hemoglobin 9.1 g/dL (13.0-16.5); Lymphocyte # 0.44 X10^3/ul (4.0); Lymphocyte % 25.4 % (19-41); Mean Corp Hgb Conc 30.8 g/dL (32-36); Mean Corpuscular Hgb 26.8 pg (27.0-32.0); Mean Platelet Vol. 9.5 fl (6.2-12.0); Monocyte# 0.25 X10^3/uL; Monocyte% 14.5 % (0-10); NRBC Flagged by Analyzer 0 % (0-5); Neutrophil # 0.87 X10^3/uL (2.7-7.7); Neutrophil % 50.2 % (47-70); POSITIVE DIFFERENTIAL YES; POSITIVE MORPHOLOGY YES; Platelet Count 138 K/mm3 (150-450); RBC Distribution Width CV 22.8 % (11.6-14.6); RBC Distribution Width SD 70.4 fl (35.1-43.9); Red Blood Count 3.39 M/mm3 (4.6-6.2); White Blood Count 1.7 K/mm3 (4.4-11.0)
[2020-01-11 06:24] LABS: Differential Indicated SCAN CRITERIA MET
[2020-01-11 06:52] LABS: ALB/GLOB Ratio 0.3 RATIO (0.9-2.4); AST(SGOT) 36 U/L (15-37); Alanine Aminotransfer ALT/SGPT 19 U/L (16-61); Albumin, Serum 1.3 g/dL (3.2-5.0); Alkaline Phosphatase 148 U/L (45-117); Anion Gap 3 (5-15); BUN 8 mg/dL (7-18); Calcium,Total 7.2 mg/dL (8.5-10.1); Chloride 106 mmol/L (98-107); Creatinine, Serum 0.57 mg/dL (0.70-1.30); EST Glomerular Filtration Rate 159 mL/min (>60); Est Glom Filt Rate - Afr Amer 193 mL/min (>60); Estimated Creatinine Clearance 158.31 ml/min; Globulin 5.1 g/dL (2.2-4.2); Glucose 131 mg/dL (74-106); Potassium 3.5 mmol/L (3.5-5.1); Protein, Total 6.4 g/dL (6.4-8.2); Sodium Level 136 mmol/L (136-145)
[2020-01-11 07:03] LABS: Differential Comment SCANNED; Hypochromasia 3+; Microcytosis 2+
[2020-01-11] MEDS: Ipratropium/Albuterol Sulfate 3 ML AMPUL.NEB INHALATION ×5 (07:09→23:43)
[2020-01-11] MEDS: Budesonide Respules 0.5 MG/2 ML AMPUL.NEB. INHALATION (07:09)
[2020-01-11] MEDS: Multivitamins,Ther W-Minerals Tablet 1 TABLET PO (09:33)
[2020-01-11] MEDS: dilTIAZem CD 240 MG Capsule PO (09:34)
[2020-01-11] MEDS: Furosemide 40 MG/4 ML Vial IV ×2 (09:42→17:19)
--- NOTE | 2020-01-11 10:07 | CASEMGMT ---
Addendum entered by Reyna Mock 01/11/20 10:20: SW spoke with Lia at [facility] and she said they are willing to consider patient again. SIOBHAN faxed information to [facility]. Reyna CORONEL Original Note: SW spoke with patient as he is more alert today. He is in agreement with going to [facility] again. He said they would not give him his pain meds. SIOBHAN told him SW will have to check with physician to see if he would order pain meds at d/c. SW let him know his family is worried about him. He then said his phone is and he needs it charged. SIOBHAN plugged patient's phone into the phone charge stand behind the nurses station. SIOBHAN also notified his RN. SIOBHAN will check with [facility] to see if they would be willing to take him again. Reyna CORONEL
[2020-01-11 13:31] LABS: Pathologist Review Reviewed
--- NOTE | 2020-01-11 15:16 | CASEMGMT ---
SIOBHAN spoke with Lia from [facility] and they can accept patient. She will need to get pre-cert. SW let patient know that [facility] can take him back. SIOBHAN also asked if SW could call his and let her know the plan as she is worried about him. He agreed to let SW call his . SW called patient's and left her a voice mail letting her know the plan is [facility] pending pre-cert. Plan: [facility] pending pre-cert. Reyna HAWK MSW
--- NOTE | 2020-01-11 15:54 | NURSING ---
patient noted hr 180 had patient use vasalva manuver hr came down to 98 md notified meds ordered
--- NOTE | 2020-01-11 16:30 | PCM.PROGNOTE ---
Patient Problems: Active and Suspected Problems Paroxysmal supraventricular tachycardia by electrocardiogram (ECG) (Acute) Coagulopathy (Acute) Hyponatremia (Acute) Acute alcoholic intoxication in alcoholism (blood level 0.08-0.29) (Acute) Subjective: Patient was seen and examined today, he had an episode of SVT last night that terminated spontaneously, patient had another episode today that terminated with nursing asking the patient to bear down. Patient has consented to go short-term to a skilled care facility for short-term rehab services. He has no evidence of going through DTs at this time. Objective: General: Alert, Oriented x3, Cooperative, No apparent distress, Well developed HEENT: Atraumatic, PERRLA, EOMI, Normocephalic Oral: Moist Mucosa Neck: Supple, No JVD, Negative Carotid Bruits, Trachea Midline, Thyroid Normal Size and Texture Lungs: Diminished, Rhonchi - Expiratory rhonchi are noted over both lungs Cardiovascular: Regular rate, Regular Rhythm, Normal S1, Normal S2, No murmurs, PMI Normal, No rub noted, No Gallop Abdomen: Bowel Sounds Present, Soft, Non Tender, Obese Extremities: Capillary Refill Less than 3 Seconds, Edema - Patient has diffuse edema over the upper legs and trunk area, - - Patient has severe lymphedematous changes to both legs Skin: No rashes, No breakdown Musculoskeletal: No Tenderness to Palpation of Joints or Extremities Neurological: Cranial nerves II-XII grossly intact, Neuro grossly intact, Sensory exam intact to light touch and pain, Coordination normal Psych/Mental Status: Normal Affect, Appropriate, Alert and oriented to time, place, person, mood and affect - Physical Exam Vitals/I&O's: Vital Signs Temp Pulse Resp BP Pulse Ox 98.4 F 94 17 122/70 H 94 01/11/20 15:55 01/11/20 15:55 01/11/20 15:55 01/11/20 15:55 01/11/20 15:55 Oxygen Flow Rate (L/min) 2 Oxygen Delivery Method Nasal Cannula Weight: 117.1 kg Body Mass Index (BMI) 38.0 Intake and Output for Last 24 Hours 01/09/20 01/10/20 01/11/20 23:59 23:59 23:59 Intake Total 1870 / 1870 1650 / 1650 Output Total 2600 / 2600 6575 / 6575 1999 Balance -2600 / -2600 -4705 / -4705 -350 / -350 Microbiology Past 72 Hours 01/10/20 04:50 Sputum, Expectorated/Coughed Gram Stain - Final 01/10/20 04:50 Sputum, Expectorated/Coughed Respiratory Culture - Preliminary Appears to be normal respiratory edgar. Further studies to follow. 01/10/20 05:35 Urine Catheter - Burns Legionella Antigen - Final 01/10/20 05:35 Urine Catheter - Burns Streptococcus pneumoniae Antigen (M - Final Laboratory Results 01/11/20 05:40: WBC 1.7 L, RBC 3.39 L, Hgb 9.1 L, Hct 29.5 L, MCV 87.0, MCH 26.8 L, MCHC 30.8 L, RDW Std Deviation 70.4 H, RDW Coeff of Chacha 22.8 H, Plt Count 138 L, MPV 9.5, Immature Gran % (Auto) 0.600, Neut % (Auto) 50.2, Lymph % (Auto) 25.4, [place] % (Auto) 14.5 H, Eos % (Auto) 8.7 H, Baso % (Auto) 0.6, Absolute Neuts (auto) 0.9 L, Absolute Lymphs (auto) 0.44 L, Nucleated RBC % 0, Differential Comment SCANNED, Diff Path Review Reviewed, Hypochromasia 3+, Microcytosis 2+ 01/11/20 05:40: Sodium 136, Potassium 3.5, Chloride 106, Carbon Dioxide 27.0, Anion Gap 3 L, BUN 8, Creatinine 0.57 L, Estim Creat Clear Calc 158.31, Est GFR (MDRD) Af Amer 193, Est GFR (MDRD) Non-Af 159, BUN/Creatinine Ratio 14.0, Glucose 131 H, Calcium 7.2 L, Total Bilirubin 2.30 H, AST 36, ALT 19, Alkaline Phosphatase 148 H, Total Protein 6.4, Albumin 1.3 L, Globulin 5.1 H, Albumin/Globulin Ratio 0.3 L Current Medications Acetaminophen (Tylenol) 650 mg PO Q6H PRN PRN PRN Reason: TEMP > 100 Last Admin: 01/10/20 05:34 Dose: 650 mg Documented by: Albuterol/Ipratropium (Duoneb) 3 ml INHALATION Q4H.RT [facility] Last Admin: 01/11/20 14:27 Dose: 3 ml Documented by: Budesonide (Pulmicort Aerosol) 0.5 mg INHALATION BID.RT [facility] Last Admin: 01/11/20 07:09 Dose: 0.5 mg Documented by: Diltiazem HCl (Cardizem Cd) 240 mg PO DAILY [facility] Last Admin: 01/11/20 09:34 Dose: 240 mg Documented by: Diltiazem HCl (Cardizem Cd) 180 mg PO QHS [facility] Emollient Ointment (Eucerin Intensive Repair) 1 applic TOPICAL 4X/DAY PRN PRN; Protocol PRN Reason: DRY SKIN Last Admin: 01/10/20 01:57 Dose: 1 applicatio Documented by: Furosemide (Lasix) 40 mg IV BID@1000,1800 [facility] Last Admin: 01/11/20 09:42 Dose: 40 mg Documented by: Piperacillin Sod/Tazobactam (Sod 3.375 gm/ Sodium Chloride) 50 mls @ 12.5 mls/hr IV Q8 [facility] Last Admin: 01/11/20 14:49 Dose: 12.5 mls/hr Documented by: Multivitamins/Minerals (Multivitamin With Minerals (Bkc)) 1 tablet PO DAILYCM [facility] Last Admin: 01/11/20 09:33 Dose: 1 tablet Documented by: Nutritional Formula (Eusebio - [place] Flavor) 1 packet PO BIDCM [facility] Last Admin: 01/11/20 09:33 Dose: 1 packet Documented by: Nystatin (Mycostatin Powder) 1 applic TOPICAL TID [facility]; Protocol Last Admin: 01/11/20 14:50 Dose: 1 applicatio Documented by: Ondansetron HCl (Zofran) 4 mg IV Q8H PRN PRN PRN Reason: NAUSEA/VOMITING Oxycodone HCl (Oxyir) 5 mg PO Q6H PRN PRN PRN Reason: Pain Score 6-10/10 Last Admin: 01/11/20 15:54 Dose: 5 mg Documented by: Sodium Chloride () 10 - 40 ml IV UD PRN PRN Reason: SALINE FLUSH Last Admin: 01/11/20 09:42 Dose: 20 ml Documented by: Medical Necessity - Tobacco Use Smoking Status: Current every day smoker Assessment/Plan All Active Problems CHF (congestive heart failure) (Acute) SVT (supraventricular tachycardia) (Acute) Pancytopenia (Acute) Paroxysmal supraventricular tachycardia by electrocardiogram (ECG) (Acute) Coagulopathy (Acute) Hyponatremia (Acute) Acute alcoholic intoxication in alcoholism (blood level 0.08-0.29) (Acute) #1 acute on chronic diastolic congestive heart failure-continue IV Lasix and fluid restriction #2 febrile illness-I suspect the patient may have underlying pneumonia, I have decided to discontinue his vancomycin and keep him on Zosyn at this time, patient's been afebrile for the last 24 hours, chest x-ray showed cardiomegaly and CHF this morning blood cultures are pending at this time, sputum culture shows only normal respiratory edgar. #3 paroxysmal SVT-I have decided to increase the patient's Cardizem CD to 240 in the morning and 120 mg in the evening. #4 hyponatremia-corrected at this time #5 alcoholic liver disease #6 chronic alcoholism #7 Pancytopenia-patient's white blood cell count today was 1.7, hemoglobin 9.1, platelet count 138,000. #8 elevated liver enzymes-secondary to chronic alcohol abuse, patient's bilirubin is trending down Inpatient E&M: 71300 Subs Hosp L2
[2020-01-11] MEDS: dilTIAZem CD 180 MG Capsule PO (17:18)
[2020-01-11] MEDS: Acetaminophen 325 MG Tablet 650 MG PO (21:55)
[2020-01-12] VITALS (16 sets, daily range): BP systolic 113–128; BP diastolic 57–74; PULSE 79–92; RESP 12–26; TEMP 36.8–37.3; O2SAT 93–95
--- NOTE | 2020-01-12 04:00 | NURSING ---
Nela's HR 170s. This RN and charge nurse to bedside with crash cart and other staff. Dr. Cifuentes paged. Patient converted after performing valsalva maneuver. HR now in the 80s. Dr. Cifuentes aware.
[2020-01-12] MEDS: dilTIAZem 25 MG/5 ML Vial 20 MG IV BOLUS (05:05)
[2020-01-12] MEDS: Nystatin Powder 15gm Bottle 1 APPLIC TOPICAL ×3 (05:18→20:57)
--- NOTE | 2020-01-12 05:34 | EKG12_ITS ---
Test Reason : SVT Blood Pressure : / mmHG Vent. Rate : 136 BPM Atrial Rate : 079 BPM P-R Int : 000 ms QRS Dur : 100 ms QT Int : 274 ms P-R-T Axes : 000 052 115 degrees QTc Int : 412 ms Atrial fibrillation Nonspecific ST and T wave abnormality Abnormal ECG When compared with ECG of 11-JAN-2020 01:25, MANUAL COMPARISON REQUIRED, DATA IS UNCONFIRMED Confirmed by NORBERTO HANKINS, ROYAL ([id number]), order editor JOSEY NGUYEN ([id number]) on 01/17/2020 3:59:44 PM Referred By: JOEL Confirmed By:ROYAL THORNTON MD
--- NOTE | 2020-01-12 05:35 | EKG12_ITS ---
Test Reason : CONVERSION TO NS Blood Pressure : / mmHG Vent. Rate : 093 BPM Atrial Rate : 093 BPM P-R Int : 180 ms QRS Dur : 112 ms QT Int : 318 ms P-R-T Axes : 047 055 055 degrees QTc Int : 395 ms Sinus rhythm with occasional Premature ventricular complexes and Premature atrial complexes Otherwise normal ECG When compared with ECG of 12-JAN-2020 05:10, MANUAL COMPARISON REQUIRED, DATA IS UNCONFIRMED Confirmed by NORBERTO HANKINS, ROYAL ([id number]), index editor JOSEY NGUYEN ([id number]) on 01/17/2020 3:59:34 PM Referred By: JOEL Confirmed By:ROYAL THORNTON MD
[2020-01-12] MEDS: Ipratropium/Albuterol Sulfate 3 ML AMPUL.NEB INHALATION ×5 (07:00→22:54)
[2020-01-12] MEDS: Acetaminophen 325 MG Tablet 650 MG PO ×3 (07:41→20:56)
[2020-01-12] MEDS: oxyCODONE 5 MG Tablet PO ×3 (07:42→20:55)
[2020-01-12] MEDS: Multivitamins,Ther W-Minerals Tablet 1 TABLET PO (09:53)
[2020-01-12] MEDS: dilTIAZem CD 240 MG Capsule PO (09:53)
[2020-01-12] MEDS: Furosemide 40 MG/4 ML Vial IV ×2 (09:53→18:02)
--- NOTE | 2020-01-12 13:52 | PN_ITS ---
Patient Problems: Active and Suspected Problems Paroxysmal supraventricular tachycardia by electrocardiogram (ECG) (Acute) Coagulopathy (Acute) Hyponatremia (Acute) Acute alcoholic intoxication in alcoholism (blood level 0.08-0.29) (Acute) Subjective: Patient was seen and examined today, he talked briefly with nursing yesterday ab out not wanting to be resuscitated if his heart stopped and he stopped breathing, I went over this with him today and he confirmed this he does not want to be put on a ventilator and he does not want any resuscitation if his heart stops. I change his CODE STATUS to DNR CCA without intubation. Patient has remained afebrile, his blood culture shows no growth, his sputum shows only normal edgar. It does not appear that the patient has a pneumonia, I have decided to stop the patient's antibiotic coverage and observe him for further signs of fever or respiratory decompensation.. - Physical Exam Vitals/I&O's: Vital Signs Temp Pulse Resp BP Pulse Ox 98.8 F 92 20 H 124/64 H 93 01/12/20 10:13 01/12/20 12:03 01/12/20 12:03 01/12/20 10:13 01/12/20 10:13 Oxygen Flow Rate (L/min) 3 Oxygen Delivery Method Nasal Cannula Weight: 115 kg Body Mass Index (BMI) 38.0 Intake and Output for Last 24 Hours 01/10/20 01/11/20 01/12/20 23:59 23:59 23:59 Intake Total 1870 / 1870 2466.46 / 2466.46 553.54 / 553.54 Output Total 6575 / 6575 3700 / 3700 750 / 750 Balance -4705 / -4705 -1233.54 / -1233.54 -196.46 / -196.46 General: Alert, Oriented x3, Cooperative, No apparent distress, Well developed HEENT: Atraumatic, PERRLA, EOMI, Normocephalic Oral: Moist Mucosa Neck: Supple, Trachea Midline, Thyroid Normal Size and Texture Lungs: Diminished, Rales - Inspiratory rales over the lung bases bilaterally Cardiovascular: Regular rate, Regular Rhythm, Normal S1, Normal S2, No murmurs, PMI Normal, No rub noted, No Gallop Abdomen: Bowel Sounds Present, Soft, Non Tender, Non-Distended Extremities: No clubbing, No cyanosis, Capillary Refill Less than 3 Seconds Skin: - - Lower extremity lymphedematous changes are noted which are chronic Neurological: Cranial nerves II-XII grossly intact, Neuro grossly intact Psych/Mental Status: Normal Affect, Appropriate, Alert and oriented to time, place, person, mood and affect Microbiology Past 72 Hours 01/10/20 06:55 Blood Culture (Wb) - Anticubital Left Blood Culture - Preliminary No growth in 48 hours. 01/10/20 05:06 Blood Culture (Wb) - Anticubital Right Blood Culture - Preliminary No growth in 48 hours. 01/10/20 04:50 Sputum, Expectorated/Coughed Gram Stain - Final 01/10/20 04:50 Sputum, Expectorated/Coughed Respiratory Culture - Final 01/10/20 05:35 Urine Catheter - Burns Legionella Antigen - Final 01/10/20 05:35 Urine Catheter - Burns Streptococcus pneumoniae Antigen (M - Final Current Medications Acetaminophen (Tylenol) 650 mg PO Q6H PRN PRN PRN Reason: TEMP > 100 Last Admin: 01/12/20 07:41 Dose: 650 mg Documented by: Albuterol/Ipratropium (Duoneb) 3 ml INHALATION Q4H.RT [facility] Last Admin: 01/12/20 12:03 Dose: 3 ml Documented by: Budesonide (Pulmicort Aerosol) 0.5 mg INHALATION BID.RT [facility] Last Admin: 01/11/20 07:09 Dose: 0.5 mg Documented by: Diltiazem HCl (Cardizem Cd) 240 mg PO DAILY [facility] Last Admin: 01/12/20 09:53 Dose: 240 mg Documented by: Diltiazem HCl (Cardizem Cd) 180 mg PO QHS [facility] Last Admin: 01/11/20 17:18 Dose: 180 mg Documented by: Emollient Ointment (Eucerin Intensive Repair) 1 applic TOPICAL 4X/DAY PRN PRN; Protocol PRN Reason: DRY SKIN Last Admin: 01/10/20 01:57 Dose: 1 applicatio Documented by: Furosemide (Lasix) 40 mg IV BID@1000,1800 [facility] Last Admin: 01/12/20 09:53 Dose: 40 mg Documented by: Piperacillin Sod/Tazobactam (Sod 3.375 gm/ Sodium Chloride) 50 mls @ 12.5 mls/hr IV Q8 [facility] Last Infusion: 01/12/20 10:14 Dose: Infused Documented by: Multivitamins/Minerals ([facility]ivitamin With Minerals (B[facility])) [facility] Last Admin: 01/12/20 09:53 Dose: 1 tablet Documented by: Nutritional Formula (Eusebio - Vici Flavor) 1 packet PO BIDCM [facility] Last Admin: 01/12/20 09:53 Dose: Not Given Documented by: Nystatin (Mycostatin Powder) 1 applic TOPICAL TID [facility]; Protocol Last Admin: 01/12/20 05:18 Dose: 1 applicatio Documented by: Ondansetron HCl (Zofran) 4 mg IV Q8H PRN PRN PRN Reason: NAUSEA/VOMITING Oxycodone HCl (Oxyir) 5 mg PO Q6H PRN PRN PRN Reason: Pain Score 6-10/10 Last Admin: 01/12/20 07:42 Dose: 5 mg Documented by: Sodium Chloride () 10 - 40 ml IV UD PRN PRN Reason: SALINE FLUSH Last Admin: 01/11/20 17:30 Dose: 20 ml Documented by: Medical Necessity - Tobacco Use Smoking Status: Current every day smoker Assessment/Plan All Active Problems CHF (congestive heart failure) (Acute) SVT (supraventricular tachycardia) (Acute) Pancytopenia (Acute) Paroxysmal supraventricular tachycardia by electrocardiogram (ECG) (Acute) Coagulopathy (Acute) Hyponatremia (Acute) Acute alcoholic intoxication in alcoholism (blood level 0.08-0.29) (Acute) #1 acute on chronic diastolic congestive heart failure-continue IV Lasix and fluid restriction #2 febrile illness-etiology unclear, it does not appear that the patient has a pneumonia at this time, I will stop the patient's antibiotic and observe #3 paroxysmal SVT-patient is on Cardizem #4 hyponatremia-corrected at this time #5 alcoholic liver disease #6 chronic alcoholism #7 Pancytopenia secondary to chronic alcoholism #8 elevated liver enzymes-secondary to chronic alcohol abuse Patient is DNR CC arrest without intubation. Inpatient E&M: 87668 Subs Hosp L2
[2020-01-12] MEDS: Budesonide Respules 0.5 MG/2 ML AMPUL.NEB. INHALATION (19:12)
[2020-01-12] MEDS: dilTIAZem CD 180 MG Capsule PO (20:58)
--- NOTE | 2020-01-12 21:00 | NURSING ---
Last Natural Light given for the night.
[2020-01-13] VITALS (15 sets, daily range): BP systolic 115–125; BP diastolic 60–71; PULSE 76–96; RESP 12–28; TEMP 36.9–37.4; O2SAT 92–94
[2020-01-13] MEDS: Ipratropium/Albuterol Sulfate 3 ML AMPUL.NEB INHALATION ×5 (02:41→18:53)
[2020-01-13] MEDS: Acetaminophen 325 MG Tablet 650 MG PO ×2 (03:06→10:11)
[2020-01-13] MEDS: oxyCODONE 5 MG Tablet PO ×3 (03:06→21:21)
[2020-01-13 06:19] LABS: Absolute Lymphocyte Count 0.53 X10^3/uL (0.83-4.51); Absolute Neutrophil Count 0.6 X10^3/uL (2.0-7.7); Basophil# 0.01 X10^3/uL; Basophil% 0.7 % (0-1); Eosinophil# 0.16 X10^3/uL; Eosinophils% 10.7 % (0-5); Hematocrit 31.1 % (40-54); Hemoglobin 9.8 g/dL (13.0-16.5); Lymphocyte # 0.53 X10^3/ul (4.0); Lymphocyte % 35.6 % (19-41); Mean Corp Hgb Conc 31.5 g/dL (32-36); Mean Corpuscular Hgb 27.2 pg (27.0-32.0); Mean Corpuscular Volume 86.4 fL (80-94); Mean Platelet Vol. 9.7 fl (6.2-12.0); Monocyte# 0.16 X10^3/uL; Monocyte% 10.7 % (0-10); NRBC Flagged by Analyzer 0 % (0-5); Neutrophil # 0.62 X10^3/uL (2.7-7.7); Neutrophil % 41.6 % (47-70); POSITIVE COUNT YES; POSITIVE DIFFERENTIAL YES; POSITIVE MORPHOLOGY YES; Platelet Count 134 K/mm3 (150-450); RBC Distribution Width CV 22.5 % (11.6-14.6); RBC Distribution Width SD 70.5 fl (35.1-43.9); White Blood Count 1.5 K/mm3 (4.4-11.0)
[2020-01-13] MEDS: Nystatin Powder 15gm Bottle 1 APPLIC TOPICAL ×3 (06:19→21:22)
--- NOTE | 2020-01-13 06:21 | NURSING ---
Natural Lite (beer) was given.
[2020-01-13 06:22] LABS: Differential Indicated SCAN CRITERIA MET
[2020-01-13] MEDS: Budesonide Respules 0.5 MG/2 ML AMPUL.NEB. INHALATION ×2 (06:35→18:53)
[2020-01-13 06:55] LABS: Differential Comment SCANNED; Target Cells RARE; Tear Drop Cell RARE
[2020-01-13 07:12] LABS: ALB/GLOB Ratio 0.3 RATIO (0.9-2.4); AST(SGOT) 34 U/L (15-37); Alanine Aminotransfer ALT/SGPT 15 U/L (16-61); Albumin, Serum 1.4 g/dL (3.2-5.0); Alkaline Phosphatase 127 U/L (45-117); Anion Gap 3 (5-15); BUN 12 mg/dL (7-18); BUN/Creat Ratio 24.1 RATIO (10-20); Calcium,Total 7.6 mg/dL (8.5-10.1); Chloride 102 mmol/L (98-107); EST Glomerular Filtration Rate 187 mL/min (>60); Est Glom Filt Rate - Afr Amer 226 mL/min (>60); Estimated Creatinine Clearance 180.47 ml/min; Globulin 5.2 g/dL (2.2-4.2); Glucose 101 mg/dL (74-106); Potassium 3.3 mmol/L (3.5-5.1); Protein, Total 6.6 g/dL (6.4-8.2); Sodium Level 135 mmol/L (136-145)
[2020-01-13] MEDS: Ondansetron 4 MG/2 ML Vial IV ×2 (08:26→19:51)
[2020-01-13] MEDS: Multivitamins,Ther W-Minerals Tablet 1 TABLET PO (10:10)
[2020-01-13] MEDS: Furosemide 40 MG/4 ML Vial IV ×2 (10:10→17:43)
[2020-01-13] MEDS: dilTIAZem CD 240 MG Capsule PO (10:10)
--- NOTE | 2020-01-13 13:25 | PCM.PROGNOTE ---
Patient Problems: Active and Suspected Problems Paroxysmal supraventricular tachycardia by electrocardiogram (ECG) (Acute) Coagulopathy (Acute) Hyponatremia (Acute) Acute alcoholic intoxication in alcoholism (blood level 0.08-0.29) (Acute) Subjective: Patient seen and examined. Reports increased shortness of breath following working with physical therapy. Denies chest pain. Complains of continued lower extremity swelling. Patient has been noncompliant with elevating legs. - Physical Exam Vitals/I&O's: Vital Signs Temp Pulse Resp BP Pulse Ox 99.0 F 92 20 H 125/71 H 94 01/13/20 08:18 01/13/20 08:18 01/13/20 11:15 01/13/20 08:18 01/13/20 08:18 Oxygen Flow Rate (L/min) 2 Oxygen Delivery Method Nasal Cannula Weight: 253 lb 15.56 oz Body Mass Index (BMI) 38.0 Intake and Output for Last 24 Hours 01/11/20 01/12/20 01/13/20 23:59 23:59 23:59 Intake Total 2466.46 / 2466.46 1099.37 / 1819.37 1010 / 1010 Output Total 3700 / 3700 1650 / 2650 1750 / 1750 Balance -1233.54 / -1233.54 -550.63 / -830.63 -740 / -740 General: Alert, Oriented x3, Cooperative HEENT: Atraumatic, PERRLA, EOMI, Normocephalic Neck: Supple, No JVD, Negative Carotid Bruits Lungs: Diminished, Rales Cardiovascular: Regular rate, No murmurs Abdomen: Bowel Sounds Present, Soft, Non Tender, Non-Distended Extremities: No clubbing, No cyanosis, Edema - Bilateral lower extremity lymphedema Skin: No rashes, No breakdown, - - Hyperpigmentation/chronic skin changes bilateral lower extremities. Musculoskeletal: No Tenderness to Palpation of Joints or Extremities Neurological: Cranial nerves II-XII grossly intact, Neuro grossly intact Psych/Mental Status: Normal Affect, Appropriate Microbiology Past 72 Hours 01/10/20 06:55 Blood Culture (Wb) - Anticubital Left Blood Culture - Preliminary No growth in 48 hours. 01/10/20 05:06 Blood Culture (Wb) - Anticubital Right Blood Culture - Preliminary No growth in 48 hours. 01/10/20 04:50 Sputum, Expectorated/Coughed Gram Stain - Final 01/10/20 04:50 Sputum, Expectorated/Coughed Respiratory Culture - Final Laboratory Results 01/13/20 05:25: WBC 1.5 L, RBC 3.60 L, Hgb 9.8 L, Hct 31.1 L, MCV 86.4, MCH 27.2, MCHC 31.5 L, RDW Std Deviation 70.5 H, RDW Coeff of Chacha 22.5 H, Plt Count 134 L, MPV 9.7, Immature Gran % (Auto) 0.700, Neut % (Auto) 41.6 L, Lymph % (Auto) 35.6, [place] % (Auto) 10.7 H, Eos % (Auto) 10.7 H, Baso % (Auto) 0.7, Absolute Neuts (auto) 0.6 L, Absolute Lymphs (auto) 0.53 L, Nucleated RBC % 0, Differential Comment SCANNED, Diff Path Review May foll, Target Cells RARE, Tear Drop Cells RARE 01/13/20 05:25: Sodium 135 L, Potassium 3.3 L, Chloride 102, Carbon Dioxide 30.0, Anion Gap 3 L, BUN 12, Creatinine 0.50 L, Estim Creat Clear Calc 180.47, Est GFR (MDRD) Af Amer 226, Est GFR (MDRD) Non-Af 187, BUN/Creatinine Ratio 24.1 H, Glucose 101, Calcium 7.6 L, Total Bilirubin 2.50 H, AST 34, ALT 15 L, Alkaline Phosphatase 127 H, Total Protein 6.6, Albumin 1.4 L, Globulin 5.2 H, Albumin/Globulin Ratio 0.3 L Current Medications Acetaminophen (Tylenol) 650 mg PO Q6H PRN PRN PRN Reason: TEMP > 100 Last Admin: 01/13/20 10:11 Dose: 650 mg Documented by: Albuterol/Ipratropium (Duoneb) 3 ml INHALATION Q4H.RT [facility] Last Admin: 01/13/20 11:15 Dose: 3 ml Documented by: Budesonide (Pulmicort Aerosol) 0.5 mg INHALATION BID.RT [facility] Last Admin: 01/13/20 06:35 Dose: 0.5 mg Documented by: Diltiazem HCl (Cardizem Cd) 240 mg PO DAILY [facility] Last Admin: 01/13/20 10:10 Dose: 240 mg Documented by: Diltiazem HCl (Cardizem Cd) 180 mg PO QHS [facility] Last Admin: 01/12/20 20:58 Dose: 180 mg Documented by: Emollient Ointment (Eucerin Intensive Repair) 1 applic TOPICAL 4X/DAY PRN PRN; Protocol PRN Reason: DRY SKIN Last Admin: 01/10/20 01:57 Dose: 1 applicatio Documented by: Furosemide (Lasix) 40 mg IV BID@1000,1800 [facility] Last Admin: 01/13/20 10:10 Dose: 40 mg Documented by: Multivitamins/Minerals (Multivitamin With Minerals (Bkc)) 1 tablet PO DAILYCM [facility] Last Admin: 01/13/20 10:10 Dose: 1 tablet Documented by: Nutritional Formula (Eusebio - Caroline Flavor) 1 packet PO BIDCM [facility] Last Admin: 01/13/20 09:43 Dose: Not Given Documented by: Nystatin (Mycostatin Powder) 1 applic TOPICAL TID [facility]; Protocol Last Admin: 01/13/20 06:19 Dose: 1 applicatio Documented by: Ondansetron HCl (Zofran) 4 mg IV Q8H PRN PRN PRN Reason: NAUSEA/VOMITING Last Admin: 01/13/20 08:26 Dose: 4 mg Documented by: Oxycodone HCl (Oxyir) 5 mg PO Q6H PRN PRN PRN Reason: Pain Score 6-10/10 Last Admin: 01/13/20 10:11 Dose: 5 mg Documented by: Sodium Chloride () 10 - 40 ml IV UD PRN PRN Reason: SALINE FLUSH Last Admin: 01/11/20 17:30 Dose: 20 ml Documented by: Medical Necessity - Tobacco Use Smoking Status: Current every day smoker Assessment/Plan All Active Problems CHF (congestive heart failure) (Acute) SVT (supraventricular tachycardia) (Acute) Pancytopenia (Acute) Paroxysmal supraventricular tachycardia by electrocardiogram (ECG) (Acute) Coagulopathy (Acute) Hyponatremia (Acute) Acute alcoholic intoxication in alcoholism (blood level 0.08-0.29) (Acute) 1. Acute on chronic diastolic CHF-BNP 975. Chest x-ray consistent with CHF. Echocardiogram 12/25/2019 demonstrates an EF of 60%. IV lasix. Strict I&O. 2. Acute hypoxic respiratory insufficiency-secondary to #1. Continue supplement oxygen to maintain O2 at or above 90%. 3. Transient fever-unclear etiology. No evidence of current infection. Empiric antibiotics discontinued. 4. Chronic lymphedema- ESTRELLA wraps. Elevate. 5. Paroxysmal SVT-stable, on Cardizem. 6. Chronic hyponatremia-stable, trend BMP. 7. Chronic alcohol abuse with alcoholic liver disease/elevated liver enzymes- CIWA. Beer therapy. 8. Pancytopenia secondary to chronic alcoholism- trend CBC. DVT prophylaxis- SCDs Discharge planning: SNF pending pre-CERT. This patient was seen by IVON Looney under the supervision of Dr. Zhang.
[2020-01-13] MEDS: dilTIAZem CD 180 MG Capsule PO (21:21)
[2020-01-13] MEDS: proCHLORPERazine 10 MG/2 ML Vial 5 MG IV (22:08)
[2020-01-13] MEDS: 0.9% Saline Lock 10 ML Syringe IV (22:08)
[2020-01-14] VITALS (13 sets, daily range): BP systolic 121–134; BP diastolic 68–72; PULSE 82–90; RESP 18–28; TEMP 36.6–37.3; O2SAT 92–96
--- NOTE | 2020-01-14 00:29 | NURSING ---
Pt having large amounts of bile/brown emesis, prn antiemetics given, with little relief. Spoke with Dr. Cifuentes who states that NG would be option for pt. Discussed NG with pt, explained benefits. Pt refused NG at this time, states that he is doing okay. Notified Dr. Cifuentes of conversation with pt, instructions given to continue with clear liquids and prn medications. Kristen RN
[2020-01-14] MEDS: Ondansetron 4 MG/2 ML Vial IV ×3 (02:13→21:31)
[2020-01-14] MEDS: 0.9% Saline Lock 10 ML Syringe IV ×7 (02:13→22:52)
[2020-01-14] MEDS: proCHLORPERazine 10 MG/2 ML Vial 5 MG IV ×2 (03:24→22:52)
[2020-01-14 05:39] LABS: Hematocrit 35.1 % (40-54); Hemoglobin 10.9 g/dL (13.0-16.5); Mean Corp Hgb Conc 31.1 g/dL (32-36); Mean Corpuscular Hgb 26.8 pg (27.0-32.0); Mean Corpuscular Volume 86.2 fL (80-94); Mean Platelet Vol. 9.2 fl (6.2-12.0); POSITIVE MORPHOLOGY YES; Platelet Count 129 K/mm3 (150-450); RBC Distribution Width CV 23.1 % (11.6-14.6); RBC Distribution Width SD 71.3 fl (35.1-43.9); Red Blood Count 4.07 M/mm3 (4.6-6.2); Scan Indicated on CBC? Y/N YES- FLAGS NOTED; White Blood Count 3.8 K/mm3 (4.4-11.0)
[2020-01-14 05:52] LABS: Anion Gap 5 (5-15); BUN 16 mg/dL (7-18); Calcium,Total 8.2 mg/dL (8.5-10.1); Chloride 98 mmol/L (98-107); Creatinine, Serum 0.67 mg/dL (0.70-1.30); EST Glomerular Filtration Rate 133 mL/min (>60); Est Glom Filt Rate - Afr Amer 161 mL/min (>60); Estimated Creatinine Clearance 134.68 ml/min; Glucose 155 mg/dL (74-106); Potassium 3.2 mmol/L (3.5-5.1); Sodium Level 138 mmol/L (136-145)
[2020-01-14 06:07] LABS: Differential Comment SCANNED
[2020-01-14] MEDS: oxyCODONE 5 MG Tablet PO (08:13)
[2020-01-14] MEDS: Multivitamins,Ther W-Minerals Tablet 1 TABLET PO (08:13)
[2020-01-14 09:14] LABS: Magnesium 1.8 mg/dL (1.6-2.6)
--- NOTE | 2020-01-14 10:38 | CASEMGMT ---
SW received a message from [facility] and they have denied patient for SNF. A peer to peer needs to be done by noon today. ASSESSOR Bibi Jiménez did the peer to peer and patient was approved. Plan is for tentative d/c tomorrow. SIOBHAN spoke with Lia at [facility] and let her know this information. Plan: d/c to [facility] pending patient being medically ready. Reyna HAWK MSW
[2020-01-14] MEDS: dilTIAZem CD 240 MG Capsule PO (11:00)
[2020-01-14] MEDS: Furosemide 40 MG/4 ML Vial IV ×3 (11:00→23:21)
--- NOTE | 2020-01-14 12:14 | PN_ITS ---
<Bibi Jiménez - Last Filed: 01/14/20 12:32> Patient Problems: Active and Suspected Problems Paroxysmal supraventricular tachycardia by electrocardiogram (ECG) (Acute) Coagulopathy (Acute) Hyponatremia (Acute) Acute alcoholic intoxication in alcoholism (blood level 0.08-0.29) (Acute) Subjective: Patient seen and examined. Reports nausea and vomiting overnight which has since resolved this morning. Denies abdominal pain. Reports improvement in shortness of breath. Continues to have scrotal and lower extremity swelling. - Physical Exam Vitals/I&O's: Vital Signs Temp Pulse Resp BP Pulse Ox 99.1 F 85 20 H 121/71 H 96 01/14/20 08:10 01/14/20 11:00 01/14/20 08:10 01/14/20 08:10 01/14/20 08:10 Oxygen Flow Rate (L/min) 3 Oxygen Delivery Method Nasal Cannula Weight: 253 lb 15.56 oz Body Mass Index (BMI) 38.0 Intake and Output for Last 24 Hours 01/12/20 01/13/20 01/14/20 23:59 23:59 23:59 Intake Total 1099.37 / 1819.37 1750 / 1750 600 / 600 Output Total 1650 / 2650 3025 / 3025 800 / 800 Balance -550.63 / -830.63 -1275 / -1275 -200 / -200 General: Alert, Oriented x3, Cooperative HEENT: Atraumatic, PERRLA, EOMI, Normocephalic Neck: Supple, No JVD, Negative Carotid Bruits Lungs: Clear to auscultation, Diminished Cardiovascular: Regular rate, No murmurs Abdomen: Bowel Sounds Present, Soft, Non Tender, Distended, Obese Extremities: No clubbing, No cyanosis, Edema - Bilateral lower extremity lymphedema, scrotal edema Skin: No rashes, No breakdown, - - Hyperpigmentation/chronic skin changes bilateral lower extremities. Musculoskeletal: No Tenderness to Palpation of Joints or Extremities Neurological: Cranial nerves II-XII grossly intact, Neuro grossly intact Psych/Mental Status: Normal Affect, Appropriate Microbiology Past 72 Hours 01/10/20 06:55 Blood Culture (Wb) - Anticubital Left Blood Culture - Preliminary No growth in 48 hours. 01/10/20 05:06 Blood Culture (Wb) - Anticubital Right Blood Culture - Preliminary No growth in 48 hours. 01/10/20 04:50 Sputum, Expectorated/Coughed Gram Stain - Final 01/10/20 04:50 Sputum, Expectorated/Coughed Respiratory Culture - Final Laboratory Results 01/14/20 05:06: WBC 3.8 L, RBC 4.07 L, Hgb 10.9 L, Hct 35.1 L, MCV 86.2, MCH 26.8 L, MCHC 31.1 L, RDW Std Deviation 71.3 H, RDW Coeff of Chacha 23.1 H, Plt Count 129 L, MPV 9.2, Differential Comment SCANNED 01/14/20 05:06: Sodium 138, Potassium 3.2 L, Chloride 98, Carbon Dioxide 35.0 H, Anion Gap 5, BUN 16, Creatinine 0.67 L, Estim Creat Clear Calc 134.68, Est GFR (MDRD) Af Amer 161, Est GFR (MDRD) Non-Af 133, BUN/Creatinine Ratio 24.0 H, Glucose 155 H, Calcium 8.2 L 01/14/20 05:06: Magnesium 1.8 Current Medications Acetaminophen (Tylenol) 650 mg PO Q6H PRN PRN PRN Reason: TEMP > 100 Last Admin: 01/13/20 10:11 Dose: 650 mg Documented by: Albuterol/Ipratropium (Duoneb) 3 ml INHALATION Q4H.RT [facility] Last Admin: 01/14/20 11:00 Dose: Not Given Documented by: Budesonide (Pulmicort Aerosol) 0.5 mg INHALATION BID.RT [facility] Last Admin: 01/14/20 07:00 Dose: Not Given Documented by: Diltiazem HCl (Cardizem Cd) 240 mg PO DAILY [facility] Last Admin: 01/14/20 11:00 Dose: 240 mg Documented by: Diltiazem HCl (Cardizem Cd) 180 mg PO QHS [facility] Last Admin: 01/13/20 21:21 Dose: 180 mg Documented by: Emollient Ointment (Eucerin Intensive Repair) 1 applic TOPICAL 4X/DAY PRN PRN; Protocol PRN Reason: DRY SKIN Last Admin: 01/10/20 01:57 Dose: 1 applicatio Documented by: Furosemide (Lasix) 40 mg IV BID@1000,1800 [facility] Last Admin: 01/14/20 11:00 Dose: 40 mg Documented by: Multivitamins/Minerals (Multivitamin With Minerals (Bkc)) [facility] Last Admin: 01/14/20 08:13 Dose: 1 tablet Documented by: Nutritional Formula (Eusebio - [place] Flavor) [facility] Last Admin: 01/14/20 08:13 Dose: Not Given Documented by: Nystatin (Mycostatin Powder) 1 applic TOPICAL TID [facility]; Protocol Last Admin: 01/14/20 06:29 Dose: Not Given Documented by: Ondansetron HCl (Zofran) 4 mg IV Q6H PRN PRN PRN Reason: NAUSEA/VOMITING Last Admin: 01/14/20 08:13 Dose: 4 mg Documented by: Oxycodone HCl (Oxyir) 5 mg PO Q6H PRN PRN PRN Reason: Pain Score 6-10/10 Last Admin: 01/14/20 08:13 Dose: 5 mg Documented by: Prochlorperazine Edisylate (Compazine Iv) 5 mg IV Q4H PRN PRN PRN Reason: NAUSEA/VOMITING Last Admin: 01/14/20 03:24 Dose: 5 mg Documented by: Sodium Chloride () 10 - 40 ml IV UD PRN PRN Reason: SALINE FLUSH Last Admin: 01/14/20 11:03 Dose: 10 ml Documented by: Medical Necessity - Tobacco Use Smoking Status: Current every day smoker Assessment/Plan All Active Problems CHF (congestive heart failure) (Acute) SVT (supraventricular tachycardia) (Acute) Pancytopenia (Acute) Paroxysmal supraventricular tachycardia by electrocardiogram (ECG) (Acute) Coagulopathy (Acute) Hyponatremia (Acute) Acute alcoholic intoxication in alcoholism (blood level 0.08-0.29) (Acute) 1. Acute on chronic diastolic CHF-BNP 975. Chest x-ray consistent with CHF. Echocardiogram 12/25/2019 demonstrates an EF of 60%. IV lasix with transition to oral Lasix tomorrow. Strict I&O. Daily weight. Her weight documentation, patient is -26 pounds. 2. Acute hypoxic respiratory insufficiency-secondary to #1. Continue supplement oxygen to maintain O2 at or above 90%. 3. Transient fever-unclear etiology. No evidence of current infection. Empiric antibiotics discontinued. 4. Chronic lymphedema- ESTRELLA wraps. Elevate. 5. Paroxysmal SVT-stable, on Cardizem. 6. Chronic hyponatremia-stable, trend BMP. 7. Chronic alcohol abuse with alcoholic liver disease/elevated liver enzymes- CIWA. Beer therapy. 8. Pancytopenia secondary to chronic alcoholism- trend CBC. DVT prophylaxis- SCDs Discharge planning: SNF when medically stable. This patient was seen by IVON Looney under the supervision of Dr. Galan. <Oscar Galan - Last Filed: 01/14/20 13:56> Subjective: Complains of pain in hips and feet. Takes naproxen for pain at home. Still with LE and scrotal edema. - Physical Exam Vitals/I&O's: Vital Signs Temp Pulse Resp BP Pulse Ox 37.3 C 85 20 H 121/71 H 96 01/14/20 08:10 01/14/20 11:00 01/14/20 08:10 01/14/20 08:10 01/14/20 08:10 Oxygen Flow Rate (L/min) 3 Oxygen Delivery Method Nasal Cannula Weight: 115.2 kg Body Mass Index (BMI) 38.0 Intake and Output for Last 24 Hours 01/12/20 01/13/20 01/14/20 23:59 23:59 23:59 Intake Total 1099.37 / 1819.37 1750 / 1750 600 / 600 Output Total 1650 / 2650 3025 / 3025 800 / 800 Balance -550.63 / -830.63 -1275 / -1275 -200 / -200 General: Alert, Cooperative HEENT: Atraumatic Neck: No Nodes, Trachea Midline Lungs: Clear to auscultation, Normal air movement, No rhonchi, No wheeze, No rales, Diminished Cardiovascular: Regular rate, Regular Rhythm, Normal S1, Normal S2 Abdomen: Soft, Non Tender, Distended Extremities: No clubbing, No cyanosis, Edema Skin: No rashes, No breakdown, - Neurological: Cranial nerves II-XII grossly intact, Neuro grossly intact Psych/Mental Status: Normal Affect, Appropriate Microbiology Past 72 Hours 01/10/20 06:55 Blood Culture (Wb) - Anticubital Left Blood Culture - Preliminary No growth in 48 hours. 01/10/20 05:06 Blood Culture (Wb) - Anticubital Right Blood Culture - Preliminary No growth in 48 hours. 01/10/20 04:50 Sputum, Expectorated/Coughed Gram Stain - Final 01/10/20 04:50 Sputum, Expectorated/Coughed Respiratory Culture - Final Laboratory Results 01/13/20 05:25: Diff Path Review Reviewed 01/14/20 05:06: WBC 3.8 L, RBC 4.07 L, Hgb 10.9 L, Hct 35.1 L, MCV 86.2, MCH 26.8 L, MCHC 31.1 L, RDW Std Deviation 71.3 H, RDW Coeff of Chacha 23.1 H, Plt Count 129 L, MPV 9.2, Differential Comment SCANNED 01/14/20 05:06: Sodium 138, Potassium 3.2 L, Chloride 98, Carbon Dioxide 35.0 H, Anion Gap 5, BUN 16, Creatinine 0.67 L, Estim Creat Clear Calc 134.68, Est GFR (MDRD) Af Amer 161, Est GFR (MDRD) Non-Af 133, BUN/Creatinine Ratio 24.0 H, Glucose 155 H, Calcium 8.2 L 01/14/20 05:06: Magnesium 1.8 Current Medications Acetaminophen (Tylenol) 650 mg PO Q6H PRN PRN PRN Reason: TEMP > 100 Last Admin: 01/13/20 10:11 Dose: 650 mg Documented by: Albuterol/Ipratropium (Duoneb) 3 ml INHALATION Q4H.RT [facility] Last Admin: 01/14/20 11:00 Dose: Not Given Documented by: Budesonide (Pulmicort Aerosol) 0.5 mg INHALATION BID.RT [facility] Last Admin: 01/14/20 07:00 Dose: Not Given Documented by: Diltiazem HCl (Cardizem Cd) 240 mg PO DAILY [facility] Last Admin: 01/14/20 11:00 Dose: 240 mg Documented by: Diltiazem HCl (Cardizem Cd) 180 mg PO QHS [facility] Last Admin: 01/13/20 21:21 Dose: 180 mg Documented by: Emollient Ointment (Eucerin Intensive Repair) 1 applic TOPICAL 4X/DAY PRN PRN; Protocol PRN Reason: DRY SKIN Last Admin: 01/10/20 01:57 Dose: 1 applicatio Documented by: Furosemide (Lasix) 40 mg IV BID@1000,1800 [facility] Stop: 01/14/20 18:00 Last Admin: 01/14/20 11:00 Dose: 40 mg Documented by: Furosemide (Lasix) 40 mg PO BID@1000,1800 [facility] Multivitamins/Minerals (Multivitamin With Minerals (Bkc)) [facility] Last Admin: 01/14/20 08:13 Dose: 1 tablet Documented by: Nutritional Formula (Eusebio - [place] Flavor) [facility] Last Admin: 01/14/20 08:13 Dose: Not Given Documented by: Nystatin (Mycostatin Powder) 1 applic TOPICAL TID [facility]; Protocol Last Admin: 01/14/20 06:29 Dose: Not Given Documented by: Ondansetron HCl (Zofran) 4 mg IV Q6H PRN PRN PRN Reason: NAUSEA/VOMITING Last Admin: 01/14/20 08:13 Dose: 4 mg Documented by: Oxycodone HCl (Oxyir) 5 mg PO Q6H PRN PRN PRN Reason: Pain Score 6-10/10 Last Admin: 01/14/20 08:13 Dose: 5 mg Documented by: Prochlorperazine Edisylate (Compazine Iv) 5 mg IV Q4H PRN PRN PRN Reason: NAUSEA/VOMITING Last Admin: 01/14/20 03:24 Dose: 5 mg Documented by: Sodium Chloride () 10 - 40 ml IV UD PRN PRN Reason: SALINE FLUSH Last Admin: 01/14/20 11:03 Dose: 10 ml Documented by: Assessment/Plan 1. acute HFrEF * EF 60% * continue with furosemide * DW patient about fluid restriction. he says he drink 8-9 beers/day here (nursing clarified he can have up to 4). Advised cutting beer consumption to 3 max/day (1065 ml/day of beer alone) and cap restriction to 1500cc/day * continue with IV furosemide * weight overall better from 126 to 115 kg (dry weight may be around 111) 2. hyperbilirubinemia * slightly improved 2.5, though still elevated * he has never had any imaging * history comments about alcoholic liver disease, suspect cirrhosis, given patient's appearance. * check US * INR from 01/08 was 1.5 (not on warfarin) * Child Barnett = C. MELD 14. 3. alcohol abuse * complicates overall care * started on beer by the previous hospitalist. Will continue for now, however, if concerning for cirrhosis, then would advise complete cessation. * thiamine and folate 4. Lymphedema * 2/2 above * supportive mgmt 5. acute hypoxic respiratory insufficiency * supportive mgmt 6. pSVT: stable on dilt. 7. Debility: to SNF upon discharge 8. VTE prophylaxis: SCDs Inpatient E&M: 89781 Subs Hosp L3
[2020-01-14 12:15] LABS: Pathologist Review Reviewed
--- NOTE | 2020-01-14 13:58 | US_ITS ---
STUDY: ABDOMINAL ULTRASOUND - RIGHT UPPER QUADRANT REASON FOR VISIT: Male, 49 years old elevated LFTs TECHNIQUE: Ultrasound evaluation of the right upper quadrant was performed with real-time and static cummins-scale imaging. TECHNICAL QUALITY: Limited. Examination limited by bowel gas, and patient condition. COMPARISON: None. FINDINGS: Liver: The liver measures 20.1 cm. There is a heterogeneous echogenicity of the liver. The bile ducts are within normal limits. There is hepatic color flow. The direction of portal flow is hepatopetal. There is no demonstrated mass lesion. Gallbladder: Normal distended gallbladder. The gallbladder wall measures 2.4 mm. There is a negative sonographic Armas''s sign. There is no pericholecystic fluid. There are multiple echogenic structures within the gallbladder, consistent with multiple gallstones. Echogenic sludge also noted within the gallbladder. Some stones are noted in the neck of the gallbladder. There is also evidence of adenomyomatosis. Common Bile Duct (C.B.D.): The common bile duct was not visualized Pancreas: There is nonvisualization of the pancreas. Right Kidney: Normal size of the right kidney. The right kidney measures 12.2 x 6.0 x 5.5 cm. Normal renal cortex. The right cortex measures 1.7 cm. There is no demonstrated renal mass or cyst. There is no right hydronephrosis. There is diffuse ascites. There is a fluid-filled structure in the left upper quadrant with echogenic debris likely the distended stomach US/Liver IMPRESSION: Heterogeneous echotexture within the liver suggesting early fatty infiltration, no discrete lesion. Multiple shadowing gallstones and sludge noted within the gallbladder. Echogenic stones noted within the neck of the gallbladder. There is adenomyomatosis noted in the gray. Sonographically normal right kidney Ascites Electronically Signed: Eugene Ledesma MD at 18:23 EDT , Service support ,
[2020-01-14] MEDS: Nystatin Powder 15gm Bottle 1 APPLIC TOPICAL ×2 (16:27→21:28)
[2020-01-14] MEDS: Ipratropium/Albuterol Sulfate 3 ML AMPUL.NEB INHALATION (20:21)
[2020-01-14] MEDS: dilTIAZem CD 180 MG Capsule PO (21:28)
--- NOTE | 2020-01-14 23:12 | PCM.PN.BLA ---
Progress Note Nurse reported patient is moist more than earlier in the shift. His oxygen demand has increased from 3 L to 4 L/min. We will give additional Lasix 40 mg IV x1. Also ultrasound showed gallstone and sludge. Nothing emergent at this time. Rounding MD to after discussion with patient. STROKE Vital Signs/Narrative: Vital Signs Temp Pulse Resp BP Pulse Ox 01/14/20 23:03 93 01/14/20 21:25 98.0 F 89 19 H 123/68 H 93 01/14/20 20:21 88 28 H 01/14/20 19:57 98.7 F 86 20 H 134/69 H 94
[2020-01-15] VITALS (13 sets, daily range): BP systolic 125–141; BP diastolic 60–74; PULSE 0–96; RESP 20–28; TEMP 37.1–37.3; O2SAT 92–95
[2020-01-15] MEDS: BENZOCAINE/MENTHOL 1 LOZENGE MUCOUS MEM (01:06)
--- NOTE | 2020-01-15 02:30 | RAD_ITS ---
STUDY: X-RAY CHEST REASON FOR EXAM: Male, 49 years old. sob and rattles with breathing TECHNIQUE: AP portable COMPARISON: 01/11/2020 FINDINGS: The lungs demonstrate persistent scattered bilateral airspace opacities. There is mild cardiac enlargement. Normal mediastinum and santi. Normal visualized pulmonary arteries. Normal visualized aortic arch and descending thoracic aorta. Normal visualized thoracic spine. Normal visualized ribs, clavicles, and shoulders. There is no demonstrated abnormality of the visualized soft tissue structures of the upper abdomen. RAD/Chest 1 View (Portable) IMPRESSION: Stable cardiac enlargement with vascular congestion and patchy airspace opacities which may be due to underlying CHF or pneumonia. No interval change. Electronically Signed: Norman Britton, at 3:44 EDT Tel , Service support ,
--- NOTE | 2020-01-15 03:04 | PCM.PN.BLA ---
Progress Note Responded to page that patient was in respiratory distress and with increased oxygen requirement. Stat CXR ordered. Patient was examined at the bedside. Alert and oriented x 3; wet cough SOB; Tachypnea, rhonchi throughout Tachycardia, Heart sounds S1, S2 present Bilateral leg edematous; hyperemic and with hyperpigmentation Acute respiratory insufficiency Duoneb x1 acapella Mucinex bid Follow results of cxr At the bedside Oxygen was decreased from 7L to 3L and his oxygen remained at 95% Requesting alcohol - nursing to provide for patient. STROKE Vital Signs/Narrative: Vital Signs Temp Pulse Resp BP Pulse Ox 01/15/20 02:25 99.0 F 95 26 H 141/74 H 93 01/14/20 23:17 97.9 F 90 20 H 128/72 H 92
[2020-01-15] MEDS: Ipratropium/Albuterol Sulfate 3 ML AMPUL.NEB INHALATION ×2 (03:11→11:16)
[2020-01-15] MEDS: guaiFENesin 1,200 MG Tablet 1200 MG PO ×2 (03:16→09:10)
[2020-01-15] MEDS: 0.9% Saline Lock 10 ML Syringe IV ×2 (04:04→06:09)
[2020-01-15] MEDS: Ondansetron 4 MG/2 ML Vial IV (04:05)
[2020-01-15 05:44] LABS: Hematocrit 33.9 % (40-54); Hemoglobin 10.7 g/dL (13.0-16.5); Mean Corp Hgb Conc 31.6 g/dL (32-36); Mean Corpuscular Hgb 27.6 pg (27.0-32.0); Mean Corpuscular Volume 87.6 fL (80-94); Mean Platelet Vol. 8.7 fl (6.2-12.0); POSITIVE MORPHOLOGY YES; Platelet Count 129 K/mm3 (150-450); RBC Distribution Width CV 23.5 % (11.6-14.6); Red Blood Count 3.87 M/mm3 (4.6-6.2); White Blood Count 7.6 K/mm3 (4.4-11.0)
[2020-01-15] MEDS: Nystatin Powder 15gm Bottle 1 APPLIC TOPICAL (05:56)
--- NOTE | 2020-01-15 06:00 | CPS ---
pt vomiting, bipap contraindicated
[2020-01-15 06:04] LABS: Anion Gap 2 (5-15); BUN 30 mg/dL (7-18); BUN/Creat Ratio 26.1 RATIO (10-20); Calcium,Total 8.3 mg/dL (8.5-10.1); Chloride 99 mmol/L (98-107); Creatinine, Serum 1.15 mg/dL (0.70-1.30); EST Glomerular Filtration Rate 71 mL/min (>60); Est Glom Filt Rate - Afr Amer 86 mL/min (>60); Estimated Creatinine Clearance 78.47 ml/min; Glucose 149 mg/dL (74-106); Potassium 3.4 mmol/L (3.5-5.1); Sodium Level 138 mmol/L (136-145)
[2020-01-15 06:07] LABS: Scan Indicated on CBC? Y/N YES- FLAGS NOTED
[2020-01-15] MEDS: proCHLORPERazine 10 MG/2 ML Vial 5 MG IV (06:09)
[2020-01-15 06:38] LABS: Differential Comment SCANNED
[2020-01-15] MEDS: oxyCODONE 5 MG Tablet PO (09:09)
[2020-01-15] MEDS: dilTIAZem CD 240 MG Capsule PO (09:09)
[2020-01-15] MEDS: Folic Acid 1 MG Tablet PO (09:10)
[2020-01-15] MEDS: Thiamine Hydrochloride 100 MG Tablet PO (09:10)
[2020-01-15] MEDS: Multivitamins,Ther W-Minerals Tablet 1 TABLET PO (09:10)
[2020-01-15] MEDS: Furosemide 40 MG Tablet PO (09:10)
--- NOTE | 2020-01-15 09:15 | CASEMGMT ---
SIOBHAN returned patient's 's phone call. She asked where SW was on getting patient somewhere. SIOBHAN told her that he is all set to go to [facility], but he is not medically ready yet. SIOBHAN told her the pre-cert will probably so we will likely have to try for pre-cert again. She said she has some things she wants to bring patient, but does not want to come up and see him. SIOBHAN told her she can drop it off with the staff at the main entrance and they will bring it up to him. She thanked SIOBHAN for the update. Reyna HAWK MSW
--- NOTE | 2020-01-15 12:23 | NURSING ---
Patient's tele alarmed bradycardic @ 38 @ 1212. Called Primary RN and asked if this was normal in which they stated no. Pt continued to remain bradycardic @ 38 bpm. This RN entered room. Pt unresponsive, black liquid emesis pouring out of mouth, no pulse felt, staff assist called, cigar packing examiner confirmed DNR-CCA, No Intubation Status. Suction provided. Hooked pt up to monitor, pt remained in PEA. This RN verified with Luz Marina Wade RN no heart sound x 1 minute. Time of called @ 1217. LABORATORY SPECIALIST Bibi Jiménez in room and aware. Dr Galan also notified and aware.
--- NOTE | 2020-01-15 12:36 | CASEMGMT ---
SW called [facility] and let Lia know that patient . [employer] INST[employer]ER called patient's and notified her. She and their children will be in to see patient. Reyna CORONEL
--- NOTE | 2020-01-15 12:48 | PCM.DEATH ---
<Bibi Jiménez - Last Filed: 01/15/20 13:23> Preliminary Cause of Cardiac Arrest Date of Admission: 01/09/20 Date of : 01/15/20 - Principle Diagnosis 1. Acute on chronic diastolic CHF 2. Acute hypoxic respiratory failure 3. Chronic alcohol abuse with alcoholic liver disease, ascites 4. Paroxysmal SVT 5. Chronic lymphedema Problem List: Active and Suspected Problems See above Hospital Course Patient is a 49-year-old male admitted 01/09/2020 due to shortness of breath and generalized weakness. He has a past medical history of chronic diastolic CHF, chronic lymphedema, paroxysmal SVT, chronic alcohol abuse with alcoholic liver disease and ascites, pancytopenia secondary to chronic alcoholism. Patient was treated with IV Lasix for acute on chronic diastolic CHF. He had significant diuresis during admission. CODE STATUS discussed in length with patient during admission and confirmed that patient did not want to be resuscitated if his heart stopped, DNR CCA without intubation. Patient noted to have increased work of breathing in a.m. 01/15/2020. He was given additional IV Lasix and oxygen supplementation increased. Informed by nursing that patient suddenly became bradycardic. Time of 1217. Patient was seen and examined in a.m., prior to . Physical assessment at that time as noted below. Patient was in the process of deciding whether he would like to continue with medical management of his underlying health conditions versus hospice. Family notified of patient's . General: Alert, Oriented x3, Cooperative HEENT: Atraumatic, PERRLA, EOMI, Normocephalic Neck: Supple, No JVD, Negative Carotid Bruits Lungs: Diminished, bilateral rails bases, tachypneic Cardiovascular: Regular rate, No murmurs Abdomen: Bowel Sounds Present, Soft, Non Tender, Distended, Obese Extremities: No clubbing, No cyanosis, Edema - Bilateral lower extremity lymphedema, scrotal edema, ascites Skin: No rashes, No breakdown, - - Hyperpigmentation/chronic skin changes bilateral lower extremities. Musculoskeletal: No Tenderness to Palpation of Joints or Extremities Neurological: Cranial nerves II-XII grossly intact, Neuro grossly intact Psych/Mental Status: Normal Affect, Appropriate This patient was seen by Bibi Jiménez NP-Deborah under the supervision of Dr. Galan. <Oscar Galan - Last Filed: 01/15/20 13:47> - Principle Diagnosis Problem List: Active and Suspected Problems Paroxysmal supraventricular tachycardia by electrocardiogram (ECG) (Acute) Coagulopathy (Acute) Hyponatremia (Acute) Acute alcoholic intoxication in alcoholism (blood level 0.08-0.29) (Acute) Hospital Course Patient seen and examined independently. Data reviewed. I agree with the above note by the nurse practitioner. Is a 49-year-old white male with history of heart failure preserved ejection fraction presents with volume overload and was initiated on diuresis.'s course was complicated by his consumption of alcohol which on the third states that he drank 8-9 Ham[place] beer per day. Patient was diuresed and weight did go down from 126 215 kg where he was on the third. I talked to the patient further about decreasing his consumption of alcohol to just 3 beers per day. I did tell him that was concerned about underlying cirrhosis though this never been clearly diagnosed though he had a child Barnett score of C and a meld score of 14. Patient did have an ultrasound that showed heterogenous echotexture of the liver suggesting early fatty infiltration. No overt cirrhosis was noted but clinically, I felt that the patient had underlying cirrhosis. Today, patient had some increased oxygen requirements and when I saw the patient today he was audibly gurgling not clearing his secretions at well but he was alert. I talked to the patient about pursuing with continued medical care versus hospice care. I told before to proceed with medical care then he would need to stop alcohol altogether and that we could treat him for withdrawal but if you wish to continue to drinking then I would recommend hospice care. He said that he wanted time to think about it. At some point afterwards, patient started bradycardia and then vomited. Patient bradycardia was noted and then on the rhythm strip, patient appear to have some increased VA interval and then went asystole. Patient previously was made DNR Comfort Care arrest with no intubation so a CODE BLUE was not called. Patient was pronounced at 1217 on January 15, 2020. Physical exam prior to the patient's . Patient was alert but more somnolent than he had before, audibly gurgling and not clearing secretions. Ashen appearance. Heart rate regular rate and rhythm. Lungs clear to auscultation anterior with minimal tenderness. Profound lower extremity venous stasis changes with elephantitis. Greater than 40 minutes of which greater than 50% of time was counseling patient about continued medical care versus hospice and explaining hospice and palliation with the patient.
--- NOTE | 2020-01-15 12:56 | NURSING ---
Pt did not receive IV fluids in the last hour or even this shift.
--- NOTE | 2020-01-15 13:43 | NURSING ---
[facility] updated to pt's family has been to hospital and is now leaving.
== END 2020-01-15 12:17 | DRG 291 ==
LOC: ED 21:56 → PCU 22:22
PROVIDERS: Internal Medicine; Nurse Practitioner Family; Admitting Provider Student in an Organized Health Care Education/Training Program; Emergency Provider Emergency Medicine
DX: I50.33 Acute on chronic diastolic (congestive) heart failure (principal); J96.01 Acute respiratory failure with hypoxia; G93.41 Metabolic encephalopathy; R18.8 Other ascites; I47.1 Supraventricular tachycardia; E87.1 Hypo-osmolality and hyponatremia; J44.1 Chronic obstructive pulmonary disease with (acute) exacerbation; Z68.41 Body mass index [BMI] 40.0-44.9, adult; D61.818 Other pancytopenia; K70.9 Alcoholic liver disease, unspecified; I89.0 Lymphedema, not elsewhere classified; F17.210 Nicotine dependence, cigarettes, uncomplicated; E11.9 Type 2 diabetes mellitus without complications; M19.90 Unspecified osteoarthritis, unspecified site; E66.9 Obesity, unspecified; F10.229 Alcohol dependence with intoxication, unspecified; Z66 Do not resuscitate; R50.9 Fever, unspecified; Z91.19 Patient's noncompliance with other medical treatment and regimen; R53.81 Other malaise; I46.9 Cardiac arrest, cause unspecified
CPT/HCPCS: 36415; 36600; 51702; 71045; 71260; 76705; 80048; 80053; 80307; 80320; 81001; 82140; 82803; 83605; 83735; 83880; 84484; 85025; 85027; 85610; 87040; 87070; 87205; 87449; 87635; 92523; 93005; 94002; 94003; 94640; 94799; 97116; 97162; 97166; 97530; 97802; 99285; 99406; J7040; Q9967; A4216; G0480; J1940; J2405; U0003